=== PATIENT | female | born 1960 | race Caucasian/White ===

== ENCOUNTER 2024-02-05 14:33 | Inpatient (IN) | payer MEDICARE, OTHER ==
[2024-02-05] MEDS: ALBUTEROL NEBULIZED 2.5 MG/3 ML INHALATION STA (14:59)
[2024-02-05] MEDS: SODIUM CHLORIDE 0.9% 1,000 ML IV SCH (15:00)
[2024-02-05] MEDS: NOREPINEPHRINE 32 MG in SODIUM CHLORIDE 0.9% 218 ML IV ONE (15:12)
[2024-02-05 15:13] LABS: Partial Thromboplastin Time 22.6 sec (22.0-30.0); Prothrombin Time 10.9 sec (10.0-12.5)
[2024-02-05 15:14] LABS: ALT 16 U/L (4-34); AST 20 U/L (14-36); African American GFR (CKD) >90 (>60 ml/min/1.73 sqM); Albumin 3.6 g/dL (3.5-5.0); Alkaline Phosphatase 77 U/L (38-126); Anion Gap 5 mmol/L; Blood Urea Nitrogen 13 mg/dL (7-17); Calcium 7.5 mg/dL (8.4-10.2); Carbon Dioxide 31 mmol/L (22-30); Chloride 91 mmol/L (98-107); Glucose 164 mg/dL (74-99); Magnesium 1.9 mg/dL (1.6-2.3); Non-African American GFR(CKD) >90 (>60 ml/min/1.73 sqM); Sodium 127 mmol/L (137-145); Total Bilirubin 0.4 mg/dL (0.2-1.3); Total Protein 5.9 g/dL (6.3-8.2)
[2024-02-05 15:21] LABS: NT-Pro-B-Type Natriuretic Pept 3140 pg/mL
[2024-02-05 15:22] LABS: HCT 45.7 % (34.0-46.0); MCH 30.2 pg (25.0-35.0); MCHC 32.8 g/dL (31.0-37.0); MCV 92.2 fL (80.0-100.0); Mean Platelet Volume 8.5; Platelet Count 196 k/uL (150-450); RBC 4.96 m/uL (3.80-5.40); WBC 33.3 k/uL (3.8-10.6)
--- NOTE | 2024-02-05 15:23 | XR ---
EXAMINATION TYPE: XR chest 1V portable DATE OF EXAM: 02/05/2024 2:57 PM COMPARISON: Chest radiographs from same day CLINICAL INDICATION: Female, 63 years old with history of vented/anjelica; [facility] TECHNIQUE: XR chest 1V portable Frontal view of the chest. FINDINGS: Lungs/Pleura: Bibasilar atelectasis. No evidence for pneumothorax, pleural effusion or focal consolid ation. Pulmonary vascularity: Unremarkable. Heart/mediastinum: Cardiomediastinal silhouette is unremarkable. Musculoskeletal: No acute osseous pathology. Other findings: None Lines/Tubes: Endotracheal tube with distal tip 5.5 cm above the piero. Nasogastric tube with its distal tip and side-port projecting under the diaphragm. Right internal jugular central venous catheter with distal tip at the cavoatrial junction. IMPRESSION: 1. Stable support tubes. 2. Left apical pneumothorax is suggested by AI software. Attention on FU CT chest. No visceral pleur al line identified. 3. Bibasilar airspace opacities correlate for aspiration versus atelectasis. [facility], , 02/05/2024 3:21 PM
--- NOTE | 2024-02-05 15:41 | P.CNPUL ---
History of Present Illness Consult date: 02/05/24 Reason for consult: dyspnea, hypoxemia, pneumonia, abnormal CXR/CT Chief complaint: Respiratory failure. History of present illness: Pulmonary consult dated February 05, 2024. This is a 63-year-old female who was transferred down from [facility]. She apparently was at [place] yesterday, diagnosed as having pneumonia, given Omnicef 300 twice a day, discharged from the emergency department. She apparently came back today, with worsened respiratory distress, and ended up requiring intubation, and mechanical ventilation, and was shipped down to [facility]. I saw her in the emergency department, trauma room 2. She is on the mechanical ventilator. The respiratory therapist switch her from volume assist-control, because of high airway pressures to pressure assist control. Her inspiratory pressure or Pi is 20 cm of water. Her inspiratory time or Ti is 0.7 seconds. The patient is receiving 100% oxygen, with a PEEP of 5, and a rate of 14 breaths/min. She was given Rocephin and vancomycin at the outside hospital. She is currently on propofol at 10 mcg/kg/min, norepinephrine at 0.05 mcg/kg/min. She is not currently receiving any IV fluids. Current labs include a white count 33.3, hemoglobin hematocrit and platelet count all normal. Sodium 127, potassium 4, chlorides 91, CO2 31, glucose 164. Calcium 7.5. N- terminal proBNP 3140. Chest x-ray may show some bibasilar atelectasis or infiltrates. There may be concern for a small left apical pneumothorax. A CT scan was ordered. Review of Systems REVIEW OF SYSTEMS: No history can be obtained as to the review of systems, prior to the patient coming to this hospital. CONSTITUTIONAL: [Negative.] NEUROLOGIC: [ Negative.] HEENT: [ Negative.] CARDIAC: [Negative.] PULMONARY: [Negative.] GI: [Negative.] : [Negative.] RHEUMATOLOGIC: [ Negative.] IMMUNOLOGIC: [ Negative.] ENDOCRINE: [Negative. ] DERMATOLOGIC: [Negative.] Past Medical History Past Medical History: Pneumonia Past Psychological History: Unable to Obtain Smoking Status: Unknown if ever smoked Past Alcohol Use History: Unable to Obtain Past Drug Use History: Unable to Obtain Medications and Allergies Allergies Allergy/AdvReac Type Severity Reaction Status Date / Time Sulfa (Sulfonamide Allergy Unknown Verified 02/05/24 14:46 Antibiotics) Physical Exam Osteopathic Statement: *. No significant issues noted on an osteopathic structural exam other than those noted in the History and Physical/Consult. Vitals: Vital Signs Temp Pulse Resp BP Pulse Ox FiO2 02/05/24 15:17 76 164/90 100 02/05/24 14:57 82 18 93/51 100 02/05/24 14:52 100 02/05/24 14:50 82 02/05/24 14:38 96.8 F L 87 20 114/69 100 02/05/24 14:37 100 Intake and Output 02/05/24 02/05/24 02/05/24 06:59 14:59 22:59 Intake Total 1.752 Balance 1.752 Intake: Intake, IV Titration 1.752 Amount Norepinephrine 32 mg In 1.752 Sodium Chloride 0.9% 218 ml @ 0.03 MCG/KG/MIN 1. 261 mls/hr IV .Q24H ONE Rx#:[id number] Other: Weight 89.7 kg No acute distress, sedated with propofol, with an orally placed endotracheal t ube. HEENT examination is grossly unremarkable. Neck supple. Full range of motion. No adenopathy thyromegaly or neck vein distention. Cardiovascular examination reveals regular rhythm rate. S1-S2 normal. No S3 or S4. No discernible murmur noted. Heart sounds are distant. Lungs reveal very diminished breath sounds. There is expiratory rhonchi and wheezes. Breath sounds are equal but diminished. No crackles. Abdomen is soft, without bowel sounds. No obvious masses. Extremities are intact. No cyanosis clubbing or edema. Skin is without rash or lesion. Neurologic examination cannot be assessed at this time. Results - Laboratory Findings CBC and BMP: 02/05/24 14:47 02/05/24 14:47 PT/INR, D-dimer PT 10.9 sec (10.0-12.5) 02/05/24 14:47 INR 1.0 (<1.2) 02/05/24 14:47 Abnormal lab findings: Abnormal Labs 02/05/24 02/05/24 14:47 14:47 WBC 33.3 H Sodium 127 L Chloride 91 L Carbon Dioxide 31 H Glucose 164 H Calcium 7.5 L Total Protein 5.9 L - Diagnostic Findings Chest x-ray: image reviewed Assessment and Plan Assessment: Acute hypoxemic respiratory failure requiring intubation and mechanical ventilation, February 05, 2024. Possible bibasilar pneumonia. Possible left apical pneumothorax. Hypotension, likely related to either volume depletion, positive pressure ventilation and/or sepsis. Plan: Plan dated February 13, 2024. Not much is known about this patient at this time. She apparently was in the [place] ER yesterday and was diagnosed as having pneumonia, given Omnicef and sent home. Subsequent to that, she came back into the ER today, with worsening respiratory distress, required intubation and mechanical ventilation. The patient was seen in the emergency room, trauma room 2. She is currently on the mechanical ventilator. She was switched from volume assist-control, to pressure assist control. She is currently on propofol for sedation, and a small dose of norepinephrine at 0.05 mcg/kg/min. Labs, have been ordered. I have asked for a CT scan of the chest, to see whether or not there is a left apical pneumothorax. Additional recommendations and suggestions are forthcoming. Time with Patient: Greater than 30
--- NOTE | 2024-02-05 15:48 | ED ---
General Adult HPI - General Chief complaint: Shortness of Breath Stated complaint: CASSY Time Seen by Provider: 02/05/24 14:36 Source: EMS, RN notes reviewed, old records reviewed Mode of arrival: EMS Limitations: altered mental status - History of Present Illness Initial comments: 63-year-old female transferred from outside hospital with vent dependent r espiratory failure secondary to COPD and pneumonia. Patient had required intubation due to respiratory failure. She had elevated CO2 on blood gas. She also had poor IV access and required central line as well as blood pressure support with norepinephrine. Patient has history of COPD and was diagnosed with pneumonia apparently 2 days prior. Patient was given antibiotics including vancomycin and ceftriaxone prior to transfer. She had an elevated white blood cell count at 24. Her sodium was 123. She was started on Versed for sedation during transport. Paramedics report low blood pressure requiring continuous norepinephrine during transport. - Related Data Home Medications Medication Instructions Recorded Confirmed Albuterol Inhaler [Ventolin Hfa 2 puff INHALATION RT-Q4H PRN 02/05/24 02/05/24 Inhaler] Azithromycin [Zithromax] 500 mg PO DAILY 02/05/24 02/05/24 Cefdinir 300 mg PO BID 02/05/24 02/05/24 Doxycycline Monohydrate 100 mg PO DIRECTED 02/05/24 02/05/24 Famotidine [Pepcid] 20 mg PO BID 02/05/24 02/05/24 Fluticasone Nasal [place] [Flonase 2 spray EA NOSTRIL DAILY 02/05/24 02/05/24 Nasal [place]] Fluticasone/Umeclidin/Vilanter 1 puff INHALATION RT-DAILY 02/05/24 02/05/24 [Trelegy Ellipta 200-62.5-25] predniSONE [Deltasone] 20 mg PO BID 02/05/24 02/05/24 Allergies Allergy/AdvReac Type Severity Reaction Status Date / Time Sulfa (Sulfonamide Allergy Unknown Verified 02/05/24 15:47 Antibiotics) Review of Systems ROS Statement: Those systems with pertinent positive or pertinent negative responses have been documented in the HPI. ROS Other: All systems not noted in ROS Statement are negative. Past Medical History Past Medical History: Pneumonia Past Psychological History: Unable to Obtain Smoking Status: Unknown if ever smoked Past Alcohol Use History: Unable to Obtain Past Drug Use History: Unable to Obtain General Exam General appearance: obtunded, in distress Head exam: Present: atraumatic, normocephalic Eye exam: Present: normal appearance Respiratory exam: Present: respiratory distress, wheezes Cardiovascular Exam: Present: regular rate, normal rhythm GI/Abdominal exam: Present: soft. Absent: distended, tenderness Extremities exam: Present: normal inspection, normal capillary refill Neurological exam: Absent: alert Skin exam: Present: warm Course Vital Signs 02/05/24 02/05/24 02/05/24 14:37 14:38 14:50 Temperature 96.8 F L Pulse Rate 87 82 Respiratory 20 Rate Blood Pressure 114/69 O2 Sat by Pulse 100 Oximetry Fraction of 100 Inspired Oxygen (FIO2) 02/05/24 02/05/24 02/05/24 14:52 14:57 15:17 Temperature Pulse Rate 82 76 Respiratory 18 Rate Blood Pressure 93/51 164/90 O2 Sat by Pulse 100 100 Oximetry Fraction of 100 Inspired Oxygen (FIO2) 02/05/24 15:38 Temperature Pulse Rate 96 Respiratory Rate Blood Pressure O2 Sat by Pulse Oximetry Fraction of Inspired Oxygen (FIO2) - Reevaluation(s) Reevaluation #1: 02/05/24 15:[address] Hancock in the emergency department Medical Decision Making - Medical Decision Making Was pt. sent in by a medical professional or institution (DEDE Aaron, CONTENT DEVELOPMENT SPECIALIST, urgent care, hospital, or intermediate...) When possible be specific @Patient transferred from [place] with respiratory failure secondary to COPD and bilateral pneumonia on the ventilator Did you speak to anyone other than the patient for history (EMS, parent, family, police, friend...)? What history was obtained from this source @ -No Did you review nursing and triage notes (agree or disagree)? Why? @ -I reviewed and agree with nursing and triage notes Were old charts reviewed (outside hosp., previous admission, EMS record, old EKG, old radiological studies, urgent care reports/EKG's, intermediate records)? Report findings @ -No old charts were reviewed Differential Dyspnea: Coronary syndrome, arrhythmia, tamponade, asthma, COPD, pulmonary embolism, pneumonia, pneumothorax, pulmonary effusion, anaphylaxis, diabetic ketoacidosis, flailed chest, pulmonary contusion, diaphragmatic rupture, anemia, neurom uscular, this is not meant to be an all-inclusive list. EKG interpreted by me (3pts min.). @Sinus rhythm rate of 83, LA interval 165, QRS duration 92, QTc 458, no ST segment elevation X-rays interpreted by me (1pt min.). @ -Chest x-ray showing concern for apical pneumothorax on the left, CT of the chest has been ordered CT interpreted by me (1pt min.). @ -CT chest shows bullous emphysema, with large blab in the left apices corresponding to questioned pneumothorax on x-ray U/S interpreted by me (1pt. min .). @ -None done What testing was considered but not performed or refused? (CT, X-rays, U/S, labs)? Why? @ -None What meds were considered but not given or refused? Why? @ -None Did you discuss the management of the patient with other professionals (professionals i.e. , PA, CONTENT DEVELOPMENT SPECIALIST, lab, RT, psych nurse, social media marketing analyst, elevator starter, teacher, administrative officer, child support case officer)? Give summary @[facility] will admit, Dr. Hancock covering for ICU Was smoking cessation discussed for >3mins.? @ -No Was critical care preformed (if so, how long)? @Yes, 35 minutes Were there social determinants of health that impacted care today? How? (Homelessness, low income, unemployed, alcoholism, drug addiction, transportation, low edu. Level, literacy, decrease access to med. care, penitentiary, rehab)? @ -No Was there de-escalation of care discussed even if they declined (Discuss DNR or withdrawal of care, Hospice)? DNR status @ -No What co-morbidities impacted this encounter? (DM, HTN, Smoking, COPD, CAD, Cancer, CVA, ARF, Chemo, Hep., AIDS, mental health diagnosis, sleep apnea, morbid obesity)? @ -[COPD, recent diagnosis of pneumonia Was patient admitted / discharged? Hospital course, mention meds given and route, prescriptions, significant lab abnormalities, going to OR and other pertinent info. @ -63-year-old female with respiratory failure requiring a ventilator secondary to COPD and pneumonia. Patient continued on IV antibiotics, IV steroids, albuterol. Patient admitted to the ICU. Repeat laboratory testing including ABG has been ordered, results are pending. Case discussed with the admitting team and the pulmonary electrical engineering teacher. Undiagnosed new problem with uncertain prognosis? @ -No Drug Therapy requiring intensive monitoring for toxicity (Heparin, Nitro, Insulin, Cardizem)? @ -No Were any procedures done? @ -No Diagnosis/symptom? @ -Vent dependent respiratory failure secondary to COPD and pneumonia Acute, or Chronic, or Acute on Chronic? @ -Acute Uncomplicated (without systemic symptoms) or Complicated (systemic symptoms)? @ -Default Side effects of treatment? @ -No Exacerbation, Progression, or Severe Exacerbation? @ -No Poses a threat to life or bodily function? How? (Chest pain, [place], [place], pneumonia, PE, COPD, DKA, ARF, appy, cholecystitis, CVA, Diverticulitis, Homicidal, Suicidal, threat to staff... and all critical care pts) @ -[Yes, respiratory failure, sepsis - Lab Data Result diagrams: 02/05/24 14:47 02/05/24 14:47 Lab Results 02/05/24 02/05/24 02/05/24 Range/Units 14:47 14:47 14:47 WBC 33.3 H (3.8-10.6) k/uL RBC 4.96 (3.80-5.40) m/uL Hgb 15.0 (11.4-16.0) gm/dL Hct 45.7 (34.0-46.0) % MCV 92.2 (80.0-100.0) fL MCH 30.2 (25.0-35.0) pg MCHC 32.8 (31.0-37.0) g/dL RDW 13.0 (11.5-15.5) % Plt Count 196 (150-450) k/uL MPV 8.5 PT 10.9 (10.0-12.5) sec INR 1.0 (<1.2) APTT 22.6 (22.0-30.0) sec Sodium 127 L (137-145) mmol/L Potassium 4.0 (3.5-5.1) mmol/L Chloride 91 L (98-107) mmol/L Carbon Dioxide 31 H (22-30) mmol/L Anion Gap 5 mmol/L BUN 13 (7-17) mg/dL Creatinine 0.54 (0.52-1.04) mg/dL Est GFR (CKD-EPI)AfAm >90 (>60 ml/min/1.73 sqM) Est GFR (CKD-EPI)NonAf >90 (>60 ml/min/1.73 sqM) Glucose 164 H (74-99) mg/dL Plasma Lactic Acid Garcia (0.7-2.0) mmol/L Calcium 7.5 L (8.4-10.2) mg/dL Magnesium 1.9 (1.6-2.3) mg/dL Total Bilirubin 0.4 (0.2-1.3) mg/dL AST 20 (14-36) U/L ALT 16 (4-34) U/L Alkaline Phosphatase 77 (38-126) U/L NT-Pro-B Natriuret Pep 3140 pg/mL Total Protein 5.9 L (6.3-8.2) g/dL Albumin 3.6 (3.5-5.0) g/dL 02/05/24 Range/Units 14:47 WBC (3.8-10.6) k/uL RBC (3.80-5.40) m/uL Hgb (11.4-16.0) gm/dL Hct (34.0-46.0) % MCV (80.0-100.0) fL MCH (25.0-35.0) pg MCHC (31.0-37.0) g/dL RDW (11.5-15.5) % Plt Count (150-450) k/uL MPV PT (10.0-12.5) sec INR (<1.2) APTT (22.0-30.0) sec Sodium (137-145) mmol/L Potassium (3.5-5.1) mmol/L Chloride (98-107) mmol/L Carbon Dioxide (22-30) mmol/L Anion Gap mmol/L BUN (7-17) mg/dL Creatinine (0.52-1.04) mg/dL Est GFR (CKD-EPI)AfAm (>60 ml/min/1.73 sqM) Est GFR (CKD-EPI)NonAf (>60 ml/min/1.73 sqM) Glucose (74-99) mg/dL Plasma Lactic Acid Garcia 1.5 (0.7-2.0) mmol/L Calcium (8.4-10.2) mg/dL Magnesium (1.6-2.3) mg/dL Total Bilirubin (0.2-1.3) mg/dL AST (14-36) U/L ALT (4-34) U/L Alkaline Phosphatase (38-126) U/L NT-Pro-B Natriuret Pep pg/mL Total Protein (6.3-8.2) g/dL Albumin (3.5-5.0) g/dL Critical Care Time Critical Care Time: Yes Total Critical Care Time: 35 Disposition Clinical Impression: Acute exacerbation of chronic obstructive pulmonary disease, Community acquired pneumonia, Respiratory failure Disposition: ADMITTED IP TO THIS HOSP Condition: Serious Is patient prescribed a controlled substance at d/c from ED?: No Referrals: None,Stated [Primary Care Provider] - 1-2 days Time of Disposition: 16:01
[2024-02-05] MEDS ORDERED: IPRATROPIUM-ALBUTEROL 3 ML NEB INHALATION PRN (15:53)
[2024-02-05] MEDS ORDERED: NALOXONE 0.4 MG/ML 1 ML VIAL IVP PRN (15:53)
--- NOTE | 2024-02-05 16:07 | CT ---
EXAMINATION TYPE: CT chest wo con DATE OF EXAM: 02/05/2024 4:00 PM COMPARISON: Chest radiograph from same day. CLINICAL INDICATION: Female, 63 years old with history of CASSY, Pneumo?; PHH, CASSY, Pnemo? TECHNIQUE: Multiple axial images were obtained through the chest. Sagittal and coronal reformats were created for review. MIP was performed on a separate workstation. Contrast used: mL of (None if empty) Oral contrast used: (None if empty) CT DLP: 456.9 mGycm, Automated exposure control for dose reduction was used. FINDINGS: LUNGS/ PLEURA: No evidence for pneumothorax thought to be seen on plain film same day severe emphysem a changes with bulla and blebs in the apices. Elevated left diaphragm with associated atelectasis. AIRWAY: Endotracheal tube terminates 4.3 cm is above the piero. HEART: Size within normal limits. MEDIASTINUM: No gross evidence of adenopathy. VASCULATURE: Right central venous catheter with tip terminating in the superior vena cava. MUSCULOSKELETAL: No acute osseous abnormalities SOFT TISSUES/LYMPH NODES: Unremarkable. LOWER NECK: No significant findings. UPPER ABDOMEN: Right adrenal nodule measuring 31 mm most consistent with lipid rich adrenal adenoma. Nasogastric tube terminating in the gastric lumen out of the [id number]. IMPRESSION: 1. No evidence for pneumothorax. 2. Severe emphysema changes in lung apices with bullous and blebs. 3. Nasogastric tube terminating out of the [id number] likely in the gastric lumen. 4. Low lung volumes with elevated left diaphragm with basilar atelectasis. 5. Right adrenal nodule most compatible with lipid rich adrenal adenoma. 6. Mild pectus excavatum morphology to the chest. 7. Endotracheal tube and central venous catheter terminating in appropriate position. [facility], Workstation: [id number], 02/05/2024 4:05 PM
[2024-02-05 16:29] LABS: Monocytes # (M) 0.33 k/uL (0-1.0); Neutrophils # (M) 31.97 k/uL (1.3-7.7); Neutrophils % (M) 96 %; Nucleated Red Blood Cells 0 /100 WBC (0-0); Total Cells Counted 100
[2024-02-05] MEDS ORDERED: PNEUMONIA PROTOCOL UTILIZED 1 EACH MISC PO PRN (16:32)
--- NOTE | 2024-02-05 16:35 | P.HPIM ---
History of Present Illness H&P Date: 02/05/24 63 year old F with PMH of COPD smoking 2PPD presents to the ED for altered mentation and acute hypoxic respiratory failure. Her is at bedside providing history. Patient has a chronic dry cough. However, over the past 2 weeks her cough has been more productive described as glue. She was admitted at [place] 2 days ago for COPD exacerbation and bilateral pneumonia. Patient requested to go home, and she was discharged on 4L NC, steroids and antibiotics. Since then, she has progressively worsened. She initially presented to [facility]. She was intubated and transferred to [facility] for higher level of care. Initial BP 114/69, T 96.8F, HR 87, RR 20, 100%, mechanically intubated. CBC, Coag panel, CMP significant for WBC 33.3, Na 127, Cl 91, bicarb 31, glu 164, Ca 7.5. Lactic acid 1.5. Mag 1.9. BNP 3140. CXR concerning for L PTX, bibasilar airspace opacities. Chest CT no PTX, severe emphysema, bibasilar atelectasis, right adrenal nodule, elevated L diaphragm, mild pectus excavatum. Started on Rocephin, Azithromycin, SoluMedrol, Levophed and admitted to ICU for further workup and management. General: Intubated Derm: warm, dry Head: atraumatic, normocephalic, symmetric, contusion forehead Eyes: no lid lag, anicteric sclera Mouth: no lip lesion, mucus membranes moist Cardiovascular: S1S2 reg, no murmur Lungs: Decreased BS bilateral, no rhonchi, no rales , mechanically ventilated Abdominal: soft, non tender to palpation Ext: no gross muscle atrophy, no edema, no contractures Neuro: Unable to determine Psych: Unable to determine Based on my assessment of this patient, this patient meets a high complexity level of care. Acute metabolic encephalopathy likely due to below Acute hypoxic respiratory failure likely due to below Acute COPD exacerbation: SoluMedrol 60 mg IV Q6H. DuoNeb QID scheduled and Q2H PRN for SOB/wheezing. Telemetry monitoring. Pulmonary on board. Septic shock secondary to bilateral pnuemonia: Wean Levophed to maintain MAP > 65. Rocephin 2g IV QD and Azithromycin 500 mg IV QD. Check COVID, Legionella Ag, Sputum Cx, BCx. NS at 100 cc/hr. Hyponatremia: Hopeful improvement with IV hydration. CODE STATUS: FULL CODE DVT Prophylaxis: Lovenox SQ GI Prophylaxis: Protonix IV Designated medical POA if patient is not able to make medical decisions for themselves: . I have reviewed the following organizational effectiveness consultant notes: ER note. I have reviewed the results of the following tests: As above. I have ordered the following tests: As above. I have discussed the care of this patient with the following independent historian: . I have independently interpreted the following test below: I have discussed the management of this patient with the following physician: ER provider. Past Medical History Past Medical History: Pneumonia Past Psychological History: Unable to Obtain Smoking Status: Unknown if ever smoked Past Alcohol Use History: Unable to Obtain Past Drug Use History: Unable to Obtain Medications and Allergies Home Medications Medication Instructions Recorded Confirmed Type Albuterol Inhaler [Ventolin Hfa 2 puff INHALATION RT-Q4H PRN 02/05/24 02/05/24 History Inhaler] Azithromycin [Zithromax] 500 mg PO DAILY 02/05/24 02/05/24 History Cefdinir 300 mg PO BID 02/05/24 02/05/24 History Doxycycline Monohydrate 100 mg PO DIRECTED 02/05/24 02/05/24 History Famotidine [Pepcid] 20 mg PO BID 02/05/24 02/05/24 History Fluticasone Nasal [place] [Flonase 2 spray EA NOSTRIL DAILY 02/05/24 02/05/24 History Nasal [place]] Fluticasone/Umeclidin/Vilanter 1 puff INHALATION RT-DAILY 02/05/24 02/05/24 History [Trelegy Ellipta 200-62.5-25] predniSONE [Deltasone] 20 mg PO BID 02/05/24 02/05/24 History Allergies Allergy/AdvReac Type Severity Reaction Status Date / Time Sulfa (Sulfonamide Allergy Unknown Verified 02/05/24 15:47 Antibiotics) Physical Exam Vitals: Vital Signs Temp Pulse Resp BP Pulse Ox FiO2 02/05/24 15:38 96 02/05/24 15:17 76 164/90 100 02/05/24 14:57 82 18 93/51 100 11/20/24 14:52 100 02/05/24 14:50 82 02/05/24 14:38 96.8 F L 87 20 114/69 100 02/05/24 14:37 100 Intake and Output 02/05/24 02/05/24 02/05/24 06:59 14:59 22:59 Intake Total 1.752 Balance 1.752 Intake: Intake, IV Titration 1.752 Amount Norepinephrine 32 mg In 1.752 Sodium Chloride 0.9% 218 ml @ 0.03 MCG/KG/MIN 1. 261 mls/hr IV .Q24H ONE Rx#:[id number] Other: Weight 89.7 kg Results CBC & Chem 7: 02/05/24 14:47 02/05/24 14:47 Labs: Abnormal Lab Results - Last 24 Hours (Table) 02/05/24 02/05/24 Range/Units 14:47 14:47 WBC 33.3 H (3.8-10.6) k/uL Sodium 127 L (137-145) mmol/L Chloride 91 L (98-107) mmol/L Carbon Dioxide 31 H (22-30) mmol/L Glucose 164 H (74-99) mg/dL Calcium 7.5 L (8.4-10.2) mg/dL Total Protein 5.9 L (6.3-8.2) g/dL
[2024-02-05 16:51] LABS: Allen Test Performed? Yes
[2024-02-05 17:07] LABS: ABG PH 7.11 (7.35-7.45)
[2024-02-05 17:08] LABS: ABG PCO2 >98 mmHg (35-45); ABG PO2 192 mmHg (83-108)
[2024-02-05 17:09] LABS: ABG HCO3 49 mmol/L (21-25); ABG Oxygen Saturation 99.2 % (94-97)
[2024-02-05 19:05] LABS: ABG Base Excess 6.8 mmol/L; ABG HCO3 37 mmol/L (21-25); ABG Oxygen Saturation 91.6 % (94-97); ABG PH 7.28 (7.35-7.45); ABG PO2 61 mmHg (83-108); ABG TCO2 40 mmol/L (19-24); Allen Test Performed? Yes
[2024-02-05 19:07] LABS: ABG PCO2 79 mmHg (35-45)
[2024-02-05] MEDS: methylPREDNISolone SOD SUCCI 125 MG/2 ML VIAL IV SCH (19:15)
[2024-02-05] MEDS: IPRATROPIUM-ALBUTEROL 3 ML NEB INHALATION SCH (19:52)
[2024-02-05] MEDS: CISATRACURIUM 200 MG in SODIUM CHLORIDE 0.9% 180 ML IV SCH (20:07)
[2024-02-05] MEDS: CISATRACURIUM 2 MG/ML 5 ML VIAL IV ONE (20:07)
[2024-02-05 20:57] LABS: ABG Base Excess 8.5 mmol/L; ABG HCO3 38 mmol/L (21-25); ABG Oxygen Saturation 94.5 % (94-97); ABG PH 7.33 (7.35-7.45); ABG PO2 69 mmHg (83-108); ABG TCO2 40 mmol/L (19-24); Allen Test Performed? Yes
[2024-02-05 20:59] LABS: ABG PCO2 72 mmHg (35-45)
[2024-02-05] MEDS: ACETAMINOPHEN TAB 325 MG TAB PO PRN (23:03)
[2024-02-05 23:41] LABS: Glucose,Whole Blood 169 mg/dL (70-110)
[2024-02-06 06:24] LABS: Glucose,Whole Blood 177 mg/dL (70-110)
[2024-02-06 06:29] LABS: Basophils % (A) 0 %; Eosinophils # (A) 0.1 k/uL (0-0.7); Eosinophils % (A) 0 %; HCT 44.2 % (34.0-46.0); HGB 14.5 gm/dL (11.4-16.0); Lymphocytes # (A) 1.6 k/uL (1.0-4.8); Lymphocytes % (A) 6 %; MCHC 32.8 g/dL (31.0-37.0); MCV 94.5 fL (80.0-100.0); Mean Platelet Volume 7.2; Monocytes # (A) 0.5 k/uL (0-1.0); Monocytes % (A) 2 %; Neutrophils # (A) 22.9 k/uL (1.3-7.7); Neutrophils % (A) 91 %; Platelet Count 237 k/uL (150-450); RBC 4.68 m/uL (3.80-5.40); RDW 12.8 % (11.5-15.5); WBC 25.2 k/uL (3.8-10.6)
[2024-02-06 06:39] LABS: ABG Base Excess 11.1 mmol/L; ABG HCO3 39 mmol/L (21-25); ABG Oxygen Saturation 96.3 % (94-97); ABG PCO2 65 mmHg (35-45); ABG PH 7.39 (7.35-7.45); ABG PO2 76 mmHg (83-108); ABG TCO2 41 mmol/L (19-24); Allen Test Performed? Yes
[2024-02-06 06:40] LABS: African American GFR (CKD) >90 (>60 ml/min/1.73 sqM); Anion Gap 3 mmol/L; Blood Urea Nitrogen 13 mg/dL (7-17); Calcium 8.3 mg/dL (8.4-10.2); Carbon Dioxide 35 mmol/L (22-30); Chloride 93 mmol/L (98-107); Glucose 183 mg/dL (74-99); Magnesium 2.3 mg/dL (1.6-2.3); Non-African American GFR(CKD) >90 (>60 ml/min/1.73 sqM); Sodium 131 mmol/L (137-145)
[2024-02-06] MEDS ORDERED: DEXTROSE 50% SYRINGE 50 ML IVP PRN ×2 (07:57)
--- NOTE | 2024-02-06 08:25 | XR ---
EXAMINATION TYPE: XR chest 1V portable DATE OF EXAM: 02/06/2024 5:42 AM COMPARISON: Chest radiograph from one day prior. CLINICAL INDICATION: Female, 63 years old with history of shortness of breath; TECHNIQUE: XR chest 1V portable Frontal view of the chest. FINDINGS: Lungs/Pleura: There remains bibasilar airspace opacities. There is no evidence of pleural effusion, f ocal consolidation, or pneumothorax. Pulmonary vascularity: Unremarkable. Heart/mediastinum: Cardiomediastinal silhouette is unremarkable. Musculoskeletal: No acute osseous pathology. Other findings: None Lines/Tubes: Endotracheal tube with distal tip 6.7cm above the piero. Nasogastric tube with its distal tip and side-port projecting under the diaphragm. Right internal jugular central venous catheter with distal tip at the cavoatrial junction. IMPRESSION: Stable exam with support tubes in appropriate position. Bibasilar airspace opacities. [facility], , 02/06/2024 8:22 AM
[2024-02-06] MEDS: ENOXAPARIN 40 MG/0.4 ML SYRINGE SQ SCH (09:30)
[2024-02-06] MEDS: PANTOPRAZOLE 40 MG/10 ML VIAL IVP SCH (09:41)
[2024-02-06] MEDS: AZITHROMYCIN 500 MG in SODIUM CHLORIDE 0.9% 250 ML IVPB SCH (10:02)
--- NOTE | 2024-02-06 10:08 | CA ---
Transthoracic Echo Report Name: Pia Kennedy Age: 63 Gender: F : 1960 Exam Date: 02/06/2024 08:10 Exam Location: [facility] Ht (in): 66 Wt (lb): 183 Ordering Physician: Negra Galdamez MD Attending/Referring Phys: Child Care Leader Irene Santoro RDCS Procedure CPT: Indications: Respiratory Failure Cardiac Hx: Technical Quality: Poor Contrast 1: Definity Total Dose (mL): 2 Contrast 2: Total Dose (mL): MEASUREMENTS (Male / Female) Normal Values 2D ECHO LV Diastolic Diameter PLAX 4.2 cm 4.2 - 5.9 / 3.9 - 5.3 cm LV Systolic Diameter PLAX 2.5 cm IVS Diastolic Thickness 0.9 cm 0.6 - 1.0 / 0.6 - 0.9 cm LVPW Diastolic Thickness 1.3 cm 0.6 - 1.0 / 0.6 - 0.9 cm LV Relative Wall Thickness 0.5 RV Internal Dim ED PLAX 1.2 cm LA Systolic Diameter LX 2.2 cm 3.0 - 4.0 / 2.7 - 3.8 cm M-MODE Aortic Root Diameter MM 2.7 cm LA Systolic Diameter MM 2.5 cm LA Ao Ratio MM 0.9 AV Cusp Separation MM 1.8 cm DOPPLER AV Peak Velocity 118.0 cm/s AV Peak Gradient 5.6 mmHg MV Area PHT 3.2 cm??? Mitral E Point Velocity 63.1 cm/s Mitral A Point Velocity 76.6 cm/s Mitral E to A Ratio 0.8 MV Deceleration Time 234.8 ms FINDINGS Left Ventricle Left ventricular ejection fraction is estimated at 55-60%. Mildly increased posterior wall thickness. No obvious regional wall motion abnormalities. Left ventricular cavity size normal. Right Ventricle Normal right ventricular size and function. Unable to estimate the right ventricular systolic pressure. Right Atrium Normal right atrial size. Left Atrium Normal left atrial size. Mitral Valve Structurally normal mitral valve. Trace mitral regurgitation. No mitral stenosis. Aortic Valve Trileaflet aortic valve. No aortic valve stenosis or regurgitation. Tricuspid Valve Structurally normal tricuspid valve. Trace tricuspid regurgitation. No tricuspid stenosis. Pulmonic Valve Structurally normal pulmonic valve. Trace pulmonic regurgitation. No pulmonic stenosis. Pericardium Minimal pericardial effusion (normal variant). Left pleural effusion. Aorta Normal size aortic root and proximal ascending aorta. CONCLUSIONS Technically difficult study with poor acoustic windows LVEF 55 to 60% No obvious regional wall motion abnormality appreciated No significant valvular dysfunction appreciated Normal RV size and systolic function. Dilated IVC with less than 50% respiratory collapse Previewed by: Dr Acosta Jara (Electronically Signed) Final Date: 06 February 2024 10:07
--- NOTE | 2024-02-06 12:57 | P.PN ---
Subjective Progress Note Date: 02/06/24 Principal diagnosis: Respiratory failure. Pulmonary consult dated February 05, 2024. This is a 63-year-old female who was transferred down from [facility]. She apparently was at [facility] yesterday, diagnosed as having pneumonia, given Omnicef 300 twice a day, discharged from the emergency department. She apparently came back today, with worsened respiratory distress, and ended up requiring intubation, and mechanical ventilation, and was shipped down to [facility]. I saw her in the emergency department, trauma room 2. She is on the mechanical ventilator. The respiratory therapist switch her from volume assist-control, because of high airway pressures to pressure assist control. Her inspiratory pressure or Pi is 20 cm of water. Her inspiratory time or Ti is 0.7 seconds. The patient is receiving 100% oxygen, with a PEEP of 5, and a rate of 14 breaths/min. She was given Rocephin and vancomycin at the outside hospital. She is currently on propofol at 10 mcg/kg/min, norepinephrine at 0.05 mcg/kg/min. She is not currently receiving any IV fluids. Current labs include a white count 33.3, hemoglobin hematocrit and platelet count all normal. Sodium 127, potassium 4, chlorides 91, CO2 31, glucose 164. Calcium 7.5. N- terminal proBNP 3140. Chest x-ray may show some bibasilar atelectasis or infiltrates. There may be concern for a small left apical pneumothorax. A CT scan was ordered. Progress note dated February 06, 2024. This is a 63-year-old female seen today in room 254. The patient remains on volume assist-control, rate 30, tidal volume 350, FiO2 70%, PEEP of 8. Blood gases show pO2 76, pCO2 65, pH is 7.39. The patient is on saline at 100 cc an hour, norepinephrine at 2 mcg/min, propofol at 35 mcg/kg/min and Nimbex at 1 mcg/kg/min, with [id number] monitoring. The patient has a history of COPD, ongoing tobacco use, lymphoma, and pneumonia. Today, an arterial line will be placed. Will start tube feedings. In addition, the patient will be started on budesonide, and formoterol, usual doses. White count 25.2, hemoglobin 14.5, hematocrit 44.2, platelet count normal. Sodium 131, potassium 4, chloride 93, CO2 35, BUN 13, creatinine 0.52. Troponins were 0.018, and 0.013. Glucose is 177. Chest x-ray shows bibasilar opacities, potentially consistent with pneumonia. Patient continues on Rocephin and azithromycin for possible community-acquired pneumonia. Objective - Vital Signs Vital signs: Vital Signs Temp 98.8 F 02/06/24 08:00 Pulse 73 02/06/24 12:18 Resp 30 H 02/06/24 10:45 BP 99/58 02/06/24 10:45 Pulse Ox 99 02/06/24 10:45 FiO2 70 02/06/24 12:02 Intake & Output 02/05/24 02/06/24 02/06/24 18:59 06:59 18:59 Intake Total 39.138 3872.555 6016.453 Output Total 2470 220 Balance 39.138 -1019.796 892.453 Weight 89.7 kg 83.2 kg Intake: Intake, IV Titration 39.138 0013.554 9842.453 Amount Azithromycin 500 mg In 250 Sodium Chloride 0.9% 250 ml @ 250 mls/hr IVPB DAILY [facility] Rx#:[id number] Cisatracurium 200 mg In 14.801 106.384 Sodium Chloride 0.9% 180 ml @ 1 MCG/KG/MIN 5.382 mls/hr IV .Q24H [facility] Rx#: [id number] Norepinephrine 32 mg In 39.138 87.534 6.069 Sodium Chloride 0.9% 218 ml @ 0.03 MCG/KG/MIN 1. 261 mls/hr IV .Q24H [facility] Rx#:[id number] Sodium Chloride 0.9% 1, 1200 600 000 ml @ 100 mls/hr IV . Q10H [facility] Rx#:[id number] cefTRIAXone 2 gm In 50 Sodium Chloride 0.9% 50 ml @ 100 mls/hr IVPB Q24HR [facility] Rx#:[id number] propofoL 1,000 mg In 147.869 100 Empty Bag 1 bag @ 15 MCG/ KG/MIN 8.073 mls/hr IV . [id number] [facility] Rx#:[id number] Output: Gastric Drainage 500 Urine 1970 220 Other: Voiding Method Indwelling Catheter - Exam No acute distress, sedated with propofol, with an orally placed endotracheal tube. The patient is sedated and paralyzed. HEENT examination is grossly unremarkable. Neck supple. Full range of motion. No adenopathy thyromegaly or neck vein distention. Cardiovascular examination reveals regular rhythm rate. S1-S2 normal. No S3 or S4. No discernible murmur noted. Heart sounds are distant. Lungs reveal very diminished breath sounds. There is expiratory rhonchi and wheezes. Breath sounds are equal but diminished. No crackles. Abdomen is soft, without bowel sounds. No obvious masses. Extremities are intact. No cyanosis clubbing or edema. Skin is without rash or lesion. Neurologic examination cannot be assessed at this time. - Labs CBC & Chem 7: 02/06/24 05:55 02/06/24 05:55 Labs: Abnormal Lab Results - Last 24 Hours (Table) 02/05/24 02/05/24 02/05/24 Range/Units 14:47 14:47 16:22 WBC 33.3 H (3.8-10.6) k/uL Neutrophils # (1.3-7.7) k/uL Neutrophils # (Manual) 31.97 H (1.3-7.7) k/uL ABG pH 7.11 L* (7.35-7.45) ABG pCO2 >98 H* (35-45) mmHg ABG pO2 192 H (83-108) mmHg ABG HCO3 49 H* (21-25) mmol/L ABG Total CO2 (19-24) mmol/L ABG O2 Saturation 99.2 H (94-97) % Hemoglobin (11.4-16.0) gm/dL Sodium 127 L (137-145) mmol/L Chloride 91 L (98-107) mmol/L Carbon Dioxide 31 H (22-30) mmol/L Glucose 164 H (74-99) mg/dL POC Glucose (mg/dL) (70-110) mg/dL Calcium 7.5 L (8.4-10.2) mg/dL Total Protein 5.9 L (6.3-8.2) g/dL 02/05/24 02/05/24 02/05/24 Range/Units 19:02 20:56 23:40 WBC (3.8-10.6) k/uL Neutrophils # (1.3-7.7) k/uL Neutrophils # (Manual) (1.3-7.7) k/uL ABG pH 7.28 L 7.33 L (7.35-7.45) ABG pCO2 79 H* 72 H* (35-45) mmHg ABG pO2 61 L 69 L (83-108) mmHg ABG HCO3 37 H 38 H (21-25) mmol/L ABG Total CO2 40 H 40 H (19-24) mmol/L ABG O2 Saturation 91.6 L (94-97) % Hemoglobin 16.1 H (11.4-16.0) gm/dL Sodium (137-145) mmol/L Chloride (98-107) mmol/L Carbon Dioxide (22-30) mmol/L Glucose (74-99) mg/dL POC Glucose (mg/dL) 169 H (70-110) mg/dL Calcium (8.4-10.2) mg/dL Total Protein (6.3-8.2) g/dL 02/06/24 02/06/24 02/06/24 Range/Units 05:55 05:55 06:14 WBC 25.2 H (3.8-10.6) k/uL Neutrophils # 22.9 H (1.3-7.7) k/uL Neutrophils # (Manual) (1.3-7.7) k/uL ABG pH (7.35-7.45) ABG pCO2 65 H (35-45) mmHg ABG pO2 76 L (83-108) mmHg ABG HCO3 39 H (21-25) mmol/L ABG Total CO2 41 H (19-24) mmol/L ABG O2 Saturation (94-97) % Hemoglobin (11.4-16.0) gm/dL Sodium 131 L (137-145) mmol/L Chloride 93 L (98-107) mmol/L Carbon Dioxide 35 H (22-30) mmol/L Glucose 183 H (74-99) mg/dL POC Glucose (mg/dL) (70-110) mg/dL Calcium 8.3 L (8.4-10.2) mg/dL Total Protein (6.3-8.2) g/dL 02/06/24 Range/Units 06:22 WBC (3.8-10.6) k/uL Neutrophils # (1.3-7.7) k/uL Neutrophils # (Manual) (1.3-7.7) k/uL ABG pH (7.35-7.45) ABG pCO2 (35-45) mmHg ABG pO2 (83-108) mmHg ABG HCO3 (21-25) mmol/L ABG Total CO2 (19-24) mmol/L ABG O2 Saturation (94-97) % Hemoglobin (11.4-16.0) gm/dL Sodium (137-145) mmol/L Chloride (98-107) mmol/L Carbon Dioxide (22-30) mmol/L Glucose (74-99) mg/dL POC Glucose (mg/dL) 177 H (70-110) mg/dL Calcium (8.4-10.2) mg/dL Total Protein (6.3-8.2) g/dL Assessment and Plan Assessment: Acute hypoxemic respiratory failure requiring intubation and mechanical ventilation, February 05, 2024. Possible bibasilar pneumonia. Possible left apical pneumothorax, not seen on CT scan. Hypotension, likely related to either volume depletion, positive pressure ventilation and/or sepsis. History of COPD from previous heavy tobacco use. History of lymphoma. History of pneumonia. Plan: Plan dated February 05, 2024. Not much is known about this patient at this time. She apparently was in the [facility] ER yesterday and was diagnosed as having pneumonia, given Omnicef and sent home. Subsequent to that, she came back into the ER today, with worsening respiratory distress, required intubation and mechanical ventilation. The patient was seen in the emergency room, trauma room 2. She is currently on the mechanical ventilator. She was switched from volume assist-control, to pressure assist control. She is currently on propofol for sedation, and a small dose of norepinephrine at 0.05 mcg/kg/min. Labs, have been ordered. I have asked for a CT scan of the chest, to see whether or not there is a left apical pneumothorax. Additional recommendations and suggestions are forthcoming. Plan dated February 06, 2024. The patient is seen in room 254. The patient is currently on the ventilator, with pO2 of 76, pCO2 of 65, pH is 7.39. The patient is getting saline at 100 cc an hour, norepinephrine at 2 mcg/min, propofol at 35 mcg/kg/min, and Nimbex at 1 mcg/kg/min with [id number] monitoring. The patient has a history of COPD from tobacco use, lymphoma, and pneumonia. We add budesonide formoterol, twice a day, and restart tube feeds. In addition, an arterial line is placed. I did have a chance to speak to the family. I spoke to her brother and her . I gave them an update. There is no apical pneumothorax seen on CT scan. We will continue to follow make recommendations where appropriate. Overall prognosis remains guarded. The patient has significant airways resistance. The peak airway pressure was 35 cm of water. The Plateau pressure was 19 cm of water. Airways resistance was 16 cm of water per liter per second. Static lung compliance was also low at 31.8 mL/cm water and dynamic lung compliance was low at 13 mL/cm water. Time with Patient: Greater than 30
[2024-02-06 13:59] LABS: Glucose,Whole Blood 130 mg/dL (70-110)
[2024-02-06] MEDS: INSULIN ASPART (NovoLOG) 100 UNIT/ML VIAL SQ SCH ×2 (13:59→23:29)
--- NOTE | 2024-02-06 14:10 | P.PN ---
Subjective Progress Note Date: 02/06/24 63 year old F with PMH of COPD smoking 2PPD presents to the ED for altered mentation and acute hypoxic respiratory failure. Her is at bedside providing history. Patient has a chronic dry cough. However, over the past 2 weeks her cough has been more productive described as glue. She was admitted at [place] 2 days ago for COPD exacerbation and bilateral pneumonia. Patient requested to go home, and she was discharged on 4L NC, steroids and antibiotics. Since then, she has progressively worsened. She initially presented to [facility]. She was intubated and transferred to [facility] for higher level of care. Initial BP 114/69, T 96.8F, HR 87, RR 20, 100%, mechanically intubated. CBC, Coag panel, CMP significant for WBC 33.3, Na 127, Cl 91, bicarb 31, glu 164, Ca 7.5. Lactic acid 1.5. Mag 1.9. BNP 3140. CXR concerning for L PTX, bibasilar airspace opacities. Chest CT no PTX, severe emphysema, bibasilar atelectasis, right adrenal nodule, elevated L diaphragm, mild pectus excavatum. Started on Rocephin, Azithromycin, SoluMedrol, Levophed and admitted to ICU for further workup and management. Started on Rocephin Azithromycin, SoluMedrol, DuoNeb. 02/05 Patient was seen and examined. Currently on Nimbex at 2 mcg/kg/min and Propofol at 35 mcg/kg/min. Pressors include Levophed at 0.04 mcg/kg/min. Antibiotics include Rocephin and Azithromycin. CBC and BMP significant for WBC 25.2, Na 131, Cl 93, bicarb 35, glu 183, Ca 8.3. Mag 2.3. EKG shows sinus rhythm with no ST T wave changes. COVID, RSV, Flu neg. CXR with bibasilar opacities. General: Intubated Derm: warm, dry Head: atraumatic, normocephalic, symmetric Eyes: no lid lag, anicteric sclera Mouth: no lip lesion, mucus membranes moist Cardiovascular: S1S2 reg, no murmur Lungs: Decreased BS bilateral, no rhonchi, no rales , mechanically ventilated Abdominal: soft, non tender to palpation Ext: no gross muscle atrophy, no edema, no contractures Neuro: Unable to determine Psych: Unable to determine Based on my assessment of this patient, this patient meets a high complexity level of care. Acute metabolic encephalopathy likely due to below Acute hypoxic respiratory failure likely due to below: Obtain Echocardiogram. Trend Trop/EKG to rule out ACS. Acute COPD exacerbation: SoluMedrol 60 mg IV Q6H. DuoNeb QID scheduled and Q2H PRN for SOB/wheezing. Telemetry monitoring. Pulmonary on board. Septic shock secondary to bilateral pnuemonia: Wean Levophed to maintain MAP > 65. Rocephin 2g IV QD and Azithromycin 500 mg IV QD (D2). Check Legionella Ag, Sputum Cx, BCx. NS at 100 cc/hr. Hyponatremia: Improvement with IV hydration. CODE STATUS: FULL CODE DVT Prophylaxis: Lovenox SQ GI Prophylaxis: Protonix IV Designated medical POA if patient is not able to make medical decisions for themselves: . I have reviewed the following net developer consultant notes: Pulmonary note. I have reviewed the results of the following tests: As above. I have ordered the following tests: As above. I have discussed the care of this patient with the following independent historian: CRISTY Gomes. I have independently interpreted the following test below: CXR I have discussed the management of this patient with the following physician: Objective - Vital Signs Vital signs: Vital Signs Temp 99.3 F 02/06/24 04:00 Pulse 87 02/06/24 07:00 Resp 30 H 02/06/24 07:00 BP 112/61 02/06/24 07:00 Pulse Ox 96 02/06/24 07:00 FiO2 70 02/06/24 07:00 Intake & Output 02/05/24 02/06/24 02/06/24 18:59 06:59 18:59 Intake Total 39.138 1450.204 101.121 Output Total 2470 50 Balance 39.138 -1019.796 51.121 Weight 89.7 kg 83.2 kg Intake: Intake, IV Titration 39.138 1450.204 101.121 Amount Cisatracurium 200 mg In 14.801 Sodium Chloride 0.9% 180 ml @ 1 MCG/KG/MIN 5.382 mls/hr IV .Q24H [facility] Rx#: [id number] Norepinephrine 32 mg In 39.138 87.534 1.121 Sodium Chloride 0.9% 218 ml @ 0.03 MCG/KG/MIN 1. 261 mls/hr IV .Q24H [facility] Rx#:[id number] Sodium Chloride 0.9% 1, 1200 100 000 ml @ 100 mls/hr IV . Q10H [facility] Rx#:[id number] propofoL 1,000 mg In 147.869 Empty Bag 1 bag @ 15 MCG/ KG/MIN 8.073 mls/hr IV . [id number] [facility] Rx#:[id number] Output: Gastric Drainage 500 Urine 1970 50 Other: Voiding Method Indwelling Catheter - Labs CBC & Chem 7: 02/06/24 05:55 02/06/24 05:55 Labs: Abnormal Lab Results - Last 24 Hours (Table) 02/05/24 02/05/24 02/05/24 Range/Units 14:47 14:47 16:22 WBC 33.3 H (3.8-10.6) k/uL Neutrophils # (1.3-7.7) k/uL Neutrophils # (Manual) 31.97 H (1.3-7.7) k/uL ABG pH 7.11 L* (7.35-7.45) ABG pCO2 >98 H* (35-45) mmHg ABG pO2 192 H (83-108) mmHg ABG HCO3 49 H* (21-25) mmol/L ABG Total CO2 (19-24) mmol/L ABG O2 Saturation 99.2 H (94-97) % Hemoglobin (11.4-16.0) gm/dL Sodium 127 L (137-145) mmol/L Chloride 91 L (98-107) mmol/L Carbon Dioxide 31 H (22-30) mmol/L Glucose 164 H (74-99) mg/dL POC Glucose (mg/dL) (70-110) mg/dL Calcium 7.5 L (8.4-10.2) mg/dL Total Protein 5.9 L (6.3-8.2) g/dL 02/05/24 02/05/24 02/05/24 Range/Units 19:02 20:56 23:40 WBC (3.8-10.6) k/uL Neutrophils # (1.3-7.7) k/uL Neutrophils # (Manual) (1.3-7.7) k/uL ABG pH 7.28 L 7.33 L (7.35-7.45) ABG pCO2 79 H* 72 H* (35-45) mmHg ABG pO2 61 L 69 L (83-108) mmHg ABG HCO3 37 H 38 H (21-25) mmol/L ABG Total CO2 40 H 40 H (19-24) mmol/L ABG O2 Saturation 91.6 L (94-97) % Hemoglobin 16.1 H (11.4-16.0) gm/dL Sodium (137-145) mmol/L Chloride (98-107) mmol/L Carbon Dioxide (22-30) mmol/L Glucose (74-99) mg/dL POC Glucose (mg/dL) 169 H (70-110) mg/dL Calcium (8.4-10.2) mg/dL Total Protein (6.3-8.2) g/dL 02/06/24 02/06/24 02/06/24 Range/Units 05:55 05:55 06:14 WBC 25.2 H (3.8-10.6) k/uL Neutrophils # 22.9 H (1.3-7.7) k/uL Neutrophils # (Manual) (1.3-7.7) k/uL ABG pH (7.35-7.45) ABG pCO2 65 H (35-45) mmHg ABG pO2 76 L (83-108) mmHg ABG HCO3 39 H (21-25) mmol/L ABG Total CO2 41 H (19-24) mmol/L ABG O2 Saturation (94-97) % Hemoglobin (11.4-16.0) gm/dL Sodium 131 L (137-145) mmol/L Chloride 93 L (98-107) mmol/L Carbon Dioxide 35 H (22-30) mmol/L Glucose 183 H (74-99) mg/dL POC Glucose (mg/dL) (70-110) mg/dL Calcium 8.3 L (8.4-10.2) mg/dL Total Protein (6.3-8.2) g/dL 02/06/24 Range/Units 06:22 WBC (3.8-10.6) k/uL Neutrophils # (1.3-7.7) k/uL Neutrophils # (Manual) (1.3-7.7) k/uL ABG pH (7.35-7.45) ABG pCO2 (35-45) mmHg ABG pO2 (83-108) mmHg ABG HCO3 (21-25) mmol/L ABG Total CO2 (19-24) mmol/L ABG O2 Saturation (94-97) % Hemoglobin (11.4-16.0) gm/dL Sodium (137-145) mmol/L Chloride (98-107) mmol/L Carbon Dioxide (22-30) mmol/L Glucose (74-99) mg/dL POC Glucose (mg/dL) 177 H (70-110) mg/dL Calcium (8.4-10.2) mg/dL Total Protein (6.3-8.2) g/dL
[2024-02-06] MEDS: IPRATROPIUM-ALBUTEROL 3 ML NEB INHALATION SCH (14:58)
[2024-02-06] MEDS: NOREPINEPHRINE 32 MG in SODIUM CHLORIDE 0.9% 218 ML IV SCH (15:13)
[2024-02-06 17:11] LABS: Glucose,Whole Blood 140 mg/dL (70-110)
--- NOTE | 2024-02-06 18:15 | PCN ---
PROCEDURE NOTE PROCEDURE PERFORMED: Right radial arterial line. PREOPERATIVE DIAGNOSES: Frequent blood draws, blood gas monitoring, hypotension. POSTOPERATIVE DIAGNOSES: Frequent blood draws, blood gas monitoring, hypotension. OPERATORS: Dr. Hancock, Dr. Huffman, and Dr. Holden. The patient's procedure was done in room 254. There was informed consent and universal timeout. DESCRIPTION OF PROCEDURE: ARTERIAL LINE PLACEMENT: Indications: Hemodynamic monitoring. A time-out was completed verifying correct patient, procedure, site, positioning, and implant(s) or special equipment if applicable. Sammy's test was performed to ensure adequate perfusion. The patient's right wrist or right groin was prepped and draped in sterile fashion. 1% Lidocaine was used to anesthetize the area. An 18G Arrow arterial line was introduced into the radial artery. The catheter was threaded over the guide wire and the needle was removed with appropriate pulsatile blood return. Blood loss was minimal. The catheter was then sutured in place to the skin and a sterile dressing applied. Perfusion to the extremity distal to the point of catheter insertion was checked and found to be adequate. We used the right radial artery. There was good blood return and waveform. The catheter was sutured in place. A sterile dressing was applied by the nurse. There was no immediate complication. The patient tolerated the procedure well. MMODL / IJN: [id number] /
[2024-02-06] MEDS: FORMOTEROL FUMARATE 20 MCG/2 ML NEBU INHALATION SCH (20:27)
[2024-02-06] MEDS: BUDESONIDE 1 MG/2 ML NEBU INHALATION SCH (20:27)
[2024-02-06 23:30] LABS: Glucose,Whole Blood 167 mg/dL (70-110)
[2024-02-07 05:04] LABS: Basophils % (A) 0 %; Eosinophils # (A) 0.1 k/uL (0-0.7); Eosinophils % (A) 1 %; HCT 38.3 % (34.0-46.0); HGB 12.5 gm/dL (11.4-16.0); Lymphocytes # (A) 1.5 k/uL (1.0-4.8); Lymphocytes % (A) 9 %; MCH 30.6 pg (25.0-35.0); MCHC 32.5 g/dL (31.0-37.0); MCV 94.1 fL (80.0-100.0); Mean Platelet Volume 7.7; Monocytes # (A) 0.5 k/uL (0-1.0); Monocytes % (A) 3 %; Neutrophils # (A) 14.5 k/uL (1.3-7.7); Neutrophils % (A) 87 %; Platelet Count 174 k/uL (150-450); RBC 4.07 m/uL (3.80-5.40); RDW 13.4 % (11.5-15.5); WBC 16.7 k/uL (3.8-10.6)
[2024-02-07 05:21] LABS: Glucose,Whole Blood 147 mg/dL (70-110)
[2024-02-07 05:30] LABS: African American GFR (CKD) >90 (>60 ml/min/1.73 sqM); Anion Gap -4 mmol/L; Blood Urea Nitrogen 17 mg/dL (7-17); Calcium 8.2 mg/dL (8.4-10.2); Carbon Dioxide 38 mmol/L (22-30); Chloride 99 mmol/L (98-107); Glucose 163 mg/dL (74-99); Magnesium 2.6 mg/dL (1.6-2.3); Non-African American GFR(CKD) >90 (>60 ml/min/1.73 sqM); Potassium 3.6 mmol/L (3.5-5.1); Sodium 133 mmol/L (137-145)
[2024-02-07] MEDS ORDERED: Potassium Replacement Protocol 1 EACH MISC MISCELLANE PRN (05:34)
[2024-02-07] MEDS: POTASSIUM BICARBONATE/CIT AC 20 MEQ TABLET.EFF NG-TUBE SCH (06:04)
[2024-02-07 06:54] LABS: ABG Base Excess 10.8 mmol/L; ABG HCO3 39 mmol/L (21-25); ABG Oxygen Saturation 96.7 % (94-97); ABG PCO2 68 mmHg (35-45); ABG PH 7.37 (7.35-7.45); ABG PO2 80 mmHg (83-108); ABG TCO2 41 mmol/L (19-24); Allen Test Performed? Yes
--- NOTE | 2024-02-07 08:18 | XR ---
EXAMINATION TYPE: XR chest 1V portable DATE OF EXAM: 02/07/2024 5:32 AM COMPARISON: Chest radiographs from 02/06/2024 CLINICAL INDICATION: Female, 63 years old with history of shortness of breath; [facility] TECHNIQUE: XR chest 1V portable Frontal view of the chest. FINDINGS: Lungs/Pleura: Hazy and reticular opacities in the lung bases. There is no evidence of pleural effusio n, focal consolidation, or pneumothorax. Pulmonary vascularity: Unremarkable. Heart/mediastinum: Cardiomediastinal silhouette is unremarkable. Musculoskeletal: No acute osseous pathology. Other findings: None Lines/Tubes: Endotracheal tube with distal tip 5.5 cm above the piero. Nasogastric tube with its distal tip and side-port projecting under the diaphragm. Right internal jugular central venous catheter with distal tip at the cavoatrial junction. IMPRESSION: Appropriate placement of support tubes. Similar appearance of the lungs with hazy/reticular opacities in the lung bases. [facility], , 02/07/2024 8:16 AM
[2024-02-07 08:40] LABS: Glucose,Whole Blood 126 mg/dL (70-110)
--- NOTE | 2024-02-07 11:42 | P.PN ---
Subjective Progress Note Date: 02/07/24 Principal diagnosis: Respiratory failure. Pulmonary consult dated February 05, 2024. This is a 63-year-old female who was transferred down from [facility]. She apparently was at [place] yesterday, diagnosed as having pneumonia, given Omnicef 300 twice a day, discharged from the emergency department. She apparently came back today, with worsened respiratory distress, and ended up requiring intubation, and mechanical ventilation, and was shipped down to [facility]. I saw her in the emergency department, trauma room 2. She is on the mechanical ventilator. The respiratory therapist switch her from volume assist-control, because of high airway pressures to pressure assist control. Her inspiratory pressure or Pi is 20 cm of water. Her inspiratory time or Ti is 0.7 seconds. The patient is receiving 100% oxygen, with a PEEP of 5, and a rate of 14 breaths/min. She was given Rocephin and vancomycin at the outside hospital. She is currently on propofol at 10 mcg/kg/min, norepinephrine at 0.05 mcg/kg/min. She is not currently receiving any IV fluids. Current labs include a white count 33.3, hemoglobin hematocrit and platelet count all normal. Sodium 127, potassium 4, chlorides 91, CO2 31, glucose 164. Calcium 7.5. N- terminal proBNP 3140. Chest x-ray may show some bibasilar atelectasis or infiltrates. There may be concern for a small left apical pneumothorax. A CT scan was ordered. Progress note dated February 06, 2024. This is a 63-year-old female seen today in room 254. The patient remains on volume assist-control, rate 30, tidal volume 350, FiO2 70%, PEEP of 8. Blood gases show pO2 76, pCO2 65, pH is 7.39. The patient is on saline at 100 cc an hour, norepinephrine at 2 mcg/min, propofol at 35 mcg/kg/min and Nimbex at 1 mcg/kg/min, with [id number] monitoring. The patient has a history of COPD, ongoing tobacco use, lymphoma, and pneumonia. Today, an arterial line will be placed. Will start tube feedings. In addition, the patient will be started on budesonide, and formoterol, usual doses. White count 25.2, hemoglobin 14.5, hematocrit 44.2, platelet count normal. Sodium 131, potassium 4, chloride 93, CO2 35, BUN 13, creatinine 0.52. Troponins were 0.018, and 0.013. Glucose is 177. Chest x-ray shows bibasilar opacities, potentially consistent with pneumonia. Patient continues on Rocephin and azithromycin for possible community-acquired pneumonia. Progress note dated February 07, 2024. 63-year-old female seen in room 254. The patient continues on the mechanical ventilator. She is on volume assist-control, rate 30, tidal line 350, FiO2 60%, PEEP of 8. Blood gases show pO2 of 80, pCO2 of 68, pH is 7.37. The patient still has a high peak airway pressure relative to the plateau pressure, and she still quite bronchospastic. Likely not ready to wean. The patient is on propofol at 40 mcg/kg/min, saline at 100 cc an hour, and vital HP at 40 cc an hour, with a goal of 50. We will attempt a daily interruption of sedation today. The patient's procalcitonin level was 0.26. After 3 days of azithromycin, and Rocephin, antibiotics will be discontinued. White count of 16.7, hemoglobin hematocrit and platelet count all normal. Sodium 133, potassium 3.6, chlorides 99, CO2 38, BUN 17, creatinine 0.60. Glucose is 126. Magnesium 2.6. Cultures are thus far negative. Chest x-ray shows bilateral diffuse and patchy infiltrates. Objective - Vital Signs Vital signs: Vital Signs Temp 97.5 F L 02/07/24 08:00 Pulse 74 02/07/24 11:00 Resp 30 H 02/07/24 11:00 BP 106/62 02/06/24 20:00 Pulse Ox 99 02/07/24 11:00 FiO2 60 02/07/24 11:00 Intake & Output 02/06/24 02/07/24 02/07/24 18:59 06:59 18:59 Intake Total 2076.047 1857.236 968.243 Output Total 455 470 350 Balance 0656.755 5236.236 618.243 Weight 83.2 kg 86 kg Intake: IV 521 1236 515 Pressure Bag (0.9 Sodium 21 36 15 Chloride) Sodium Chloride 0.9% 1, 500 1200 500 000 ml @ 100 mls/hr IV . Q10H [facility] Rx#:[id number] Intake, IV Titration 1445.047 181.236 193.243 Amount Azithromycin 500 mg In 250 Sodium Chloride 0.9% 250 ml @ 250 mls/hr IVPB DAILY [facility] Rx#:[id number] Cisatracurium 200 mg In 149.799 80.371 Sodium Chloride 0.9% 180 ml @ 1 MCG/KG/MIN 5.382 mls/hr IV .Q24H [facility] Rx#: [id number] Norepinephrine 32 mg In 1.579 2.912 Sodium Chloride 0.9% 218 ml @ 0.02 MCG/KG/MIN 0.78 mls/hr IV .Q24H [facility] Rx#: [id number] Norepinephrine 32 mg In 11.324 Sodium Chloride 0.9% 218 ml @ 0.03 MCG/KG/MIN 1. 261 mls/hr IV .Q24H [facility] Rx#:[id number] Sodium Chloride 0.9% 1, 700 000 ml @ 100 mls/hr IV . Q10H [facility] Rx#:[id number] cefTRIAXone 2 gm In 50 Sodium Chloride 0.9% 50 ml @ 100 mls/hr IVPB Q24HR [facility] Rx#:[id number] propofoL 1,000 mg In 282.345 178.324 112.872 Empty Bag 1 bag @ 15 MCG/ KG/MIN 8.073 mls/hr IV . [id number] [facility] Rx#:[id number] Tube Feeding 80 350 200 Other 30 90 60 Output: Urine 455 470 350 Other: Voiding Method Indwelling Catheter Indwelling Catheter Indwelling Catheter ABP, PAP, CO, CI - Last Documented Arterial Blood Pressure 128/56 - Exam No acute distress, sedated with propofol, with an orally placed endotracheal tube. The patient is sedated. HEENT examination is grossly unremarkable. Neck supple. Full range of motion. No adenopathy thyromegaly or neck vein dis tention. Cardiovascular examination reveals regular rhythm rate. S1-S2 normal. No S3 or S4. No discernible murmur noted. Heart sounds are distant. Lungs reveal very diminished breath sounds. There is expiratory rhonchi and wheezes. Breath sounds are equal but diminished. No crackles. Abdomen is soft, without bowel sounds. No obvious masses. Extremities are intact. No cyanosis clubbing or edema. Skin is without rash or lesion. Neurologic examination cannot be assessed at this time. - Labs CBC & Chem 7: 02/07/24 04:44 02/07/24 04:44 Labs: Abnormal Lab Results - Last 24 Hours (Table) 02/06/24 02/06/24 02/06/24 Range/Units 05:55 13:58 17:05 WBC (3.8-10.6) k/uL Neutrophils # (1.3-7.7) k/uL ABG pCO2 (35-45) mmHg ABG pO2 (83-108) mmHg ABG HCO3 (21-25) mmol/L ABG Total CO2 (19-24) mmol/L Sodium (137-145) mmol/L Carbon Dioxide (22-30) mmol/L Glucose (74-99) mg/dL POC Glucose (mg/dL) 130 H 140 H (70-110) mg/dL Hemoglobin A1c 6.3 H (<=6.0) % Calcium (8.4-10.2) mg/dL Magnesium (1.6-2.3) mg/dL 02/06/24 02/07/24 02/07/24 Range/Units 23:29 04:44 04:44 WBC 16.7 H (3.8-10.6) k/uL Neutrophils # 14.5 H (1.3-7.7) k/uL ABG pCO2 (35-45) mmHg ABG pO2 (83-108) mmHg ABG HCO3 (21-25) mmol/L ABG Total CO2 (19-24) mmol/L Sodium 133 L (137-145) mmol/L Carbon Dioxide 38 H (22-30) mmol/L Glucose 163 H (74-99) mg/dL POC Glucose (mg/dL) 167 H (70-110) mg/dL Hemoglobin A1c (<=6.0) % Calcium 8.2 L (8.4-10.2) mg/dL Magnesium 2.6 H (1.6-2.3) mg/dL 02/07/24 02/07/24 02/07/24 Range/Units 05:20 06:12 08:38 WBC (3.8-10.6) k/uL Neutrophils # (1.3-7.7) k/uL ABG pCO2 68 H (35-45) mmHg ABG pO2 80 L (83-108) mmHg ABG HCO3 39 H (21-25) mmol/L ABG Total CO2 41 H (19-24) mmol/L Sodium (137-145) mmol/L Carbon Dioxide (22-30) mmol/L Glucose (74-99) mg/dL POC Glucose (mg/dL) 147 H 126 H (70-110) mg/dL Hemoglobin A1c (<=6.0) % Calcium (8.4-10.2) mg/dL Magnesium (1.6-2.3) mg/dL Microbiology - Last 24 Hours (Table) 02/06/24 03:47 Gram Stain - Preliminary Sputum Sputum Culture - Preliminary 02/05/24 20:04 Blood Culture - Preliminary Blood 02/05/24 19:52 Blood Culture - Preliminary Blood Assessment and Plan Assessment: Acute hypoxemic respiratory failure requiring intubation and mechanical ventilation, February 05, 2024. Possible bibasilar pneumonia. Possible left apical pneumothorax, not seen on CT scan. Hypotension, likely related to either volume depletion, positive pressure ventilation and/or sepsis. History of COPD from previous heavy tobacco use. History of lymphoma. History of pneumonia. Plan: Plan dated February 05, 2024. Not much is known about this patient at this time. She apparently was in the [place] ER yesterday and was diagnosed as having pneumonia, given Omnicef and sent home. Subsequent to that, she came back into the ER today, with worsening respiratory distress, required intubation and mechanical ventilation. The patient was seen in the emergency room, trauma room 2. She is currently on the mechanical ventilator. She was switched from volume assist-control, to pressure assist control. She is currently on propofol for sedation, and a small dose of norepinephrine at 0.05 mcg/kg/min. Labs, have been ordered. I have asked for a CT scan of the chest, to see whether or not there is a left apical pneumothorax. Additional recommendations and suggestions are forthcoming. Plan dated February 06, 2024. The patient is seen in room 254. The patient is currently on the ventilator, with pO2 of 76, pCO2 of 65, pH is 7.39. The patient is getting saline at 100 cc an hour, norepinephrine at 2 mcg/min, propofol at 35 mcg/kg/min, and Nimbex at 1 mcg/kg/min with [id number] monitoring. The patient has a history of COPD from tobacco use, lymphoma, and pneumonia. We add budesonide formoterol, twice a day, and restart tube feeds. In addition, an arterial line is placed. I did have a chance to speak to the family. I spoke to her brother and her . I gave them an update. There is no apical pneumothorax seen on CT scan. We will continue to follow make recommendations where appropriate. Overall prognosis remains guarded. The patient has significant airways resistance. The peak airway pressure was 35 cm of water. The Plateau pressure was 19 cm of water. Airways resistance was 16 cm of water per liter per second. Static lung compliance was also low at 31.8 mL/cm water and dynamic lung compliance was low at 13 mL/cm water. Plan dated February 07, 2024. The patient will get 1 more day of antibiotics, and then afterwards, will be discontinued. Her procalcitonin level is 0.26, which is in the normal range. The patient's peak airway pressure is quite high compared to her plateau pressure. That would suggest that she still quite bronchospastic, with increased airways resistance. Therefore, the patient will not have a spontaneous breathing trial. Labs, x-rays, and all medications are reviewed. The patient's procalcitonin level was 0.26. The patient remains on propofol at 40 mcg/kg/min. She is getting tube feedings with vital HP at 40 cc an hour, with a goal of 50. pO2 80, pCO2 of 68, and pH 7.37. Dictation was produced using [employer] dictation software. Please excuse any grammatical, word or spelling errors. Time with Patient: Greater than 30
[2024-02-07 12:46] LABS: Glucose,Whole Blood 91 mg/dL (70-110)
--- NOTE | 2024-02-07 12:50 | P.PN ---
Subjective Progress Note Date: 02/07/24 63 year old F with PMH of COPD smoking 2PPD presents to the ED for altered mentation and acute hypoxic respiratory failure. Her is at bedside providing history. Patient has a chronic dry cough. However, over the past 2 weeks her cough has been more productive described as glue. She was admitted at [place] 2 days ago for COPD exacerbation and bilateral pneumonia. Patient requested to go home, and she was discharged on 4L NC, steroids and antibiotics. Since then, she has progressively worsened. She initially presented to [facility]. She was intubated and transferred to [facility] for higher level of care. Initial BP 114/69, T 96.8F, HR 87, RR 20, 100%, mechanically intubated. CBC, Coag panel, CMP significant for WBC 33.3, Na 127, Cl 91, bicarb 31, glu 164, Ca 7.5. Lactic acid 1.5. Mag 1.9. BNP 3140. CXR concerning for L PTX, bibasilar airspace opacities. Chest CT no PTX, severe emphysema, bibasilar atelectasis, right adrenal nodule, elevated L diaphragm, mild pectus excavatum. Started on Rocephin, Azithromycin, SoluMedrol, Levophed and admitted to ICU for further workup and management. Started on Rocephin Azithromycin, SoluMedrol, DuoNeb. 02/05 Patient was seen and examined. Currently on Nimbex at 2 mcg/kg/min and Propofol at 35 mcg/kg/min. Pressors include Levophed at 0.04 mcg/kg/min. Antibiotics include Rocephin and Azithromycin. CBC and BMP significant for WBC 25.2, Na 131, Cl 93, bicarb 35, glu 183, Ca 8.3. Mag 2.3. EKG shows sinus rhythm with no ST T wave changes. COVID, RSV, Flu neg. CXR with bibasilar opacities. 02/06 Patient was seen and examined. Currently on Propofol at 50 mcg/kg/min. Levophed has been weaned off. Antibiotics include Rocephin 2g IV QD and Azithromycin 500 mg IV QD. CBC and BMP significant for WBC 16.7, Na 133, bicarb 38, glu 163, Ca 8.2. Mag 2.6. Echo shows EF 55-60%. Procal is 0.26. A1c is 6.3. Sputum Cx few PMN, rare GPC and GNB. BCx neg at 24H. Troponin 0.018, 0.013. CXR remains stable to yesterdays CXR. General: Intubated Derm: warm, dry Head: atraumatic, normocephalic, symmetric Eyes: no lid lag, anicteric sclera Mouth: no lip lesion, mucus membranes moist Cardiovascular: S1S2 reg, no murmur Lungs: Decreased BS bilateral, no rhonchi, no rales , mechanically ventilated Abdominal: soft, non tender to palpation Ext: no gross muscle atrophy, no edema, no contractures Neuro: Unable to determine Psych: Unable to determine Based on my assessment of this patient, this patient meets a high complexity level of care. Acute metabolic encephalopathy likely due to below Acute hypoxic respiratory failure likely due to below: Echocardiogram as above. ACS ruled out. Acute COPD exacerbation: SoluMedrol 60 mg IV Q6H. DuoNeb QID scheduled and Q2H PRN for SOB/wheezing. Pulmicort 1 mg INH BID. Telemetry monitoring. Pulmonary on board. Septic shock secondary to bilateral pnuemonia: Wean Levophed to maintain MAP > 65. Rocephin 2g IV QD and Azithromycin 500 mg IV QD (D3). Procal 0.26. Legionella Ag, COVID/RSV/Flu neg. Sputum Cx PMN, GPC, GNB. BCx prelim neg. NS at 100 cc/hr. Hyponatremia: Improvement with IV hydration. Metabolic alkalosis as compensation for respiratory acidosis Diabetes mellitus: A1c 6.3. ISS Q6H. Accuchecks ACHS. CODE STATUS: FULL CODE DVT Prophylaxis: Lovenox SQ GI Prophylaxis: Protonix IV Designated medical POA if patient is not able to make medical decisions for themselves: . I have reviewed the following sap [employer] consultant notes: Pulmonary note. I have reviewed the results of the following tests: As above. I have ordered the following tests: As above. I have discussed the care of this patient with the following independent historian: I have independently interpreted the following test below: CXR I have discussed the management of this patient with the following physician: Objective - Vital Signs Vital signs: Vital Signs Temp 99.0 F 02/07/24 04:00 Pulse 72 02/07/24 07:00 Resp 30 H 02/07/24 07:58 BP 106/62 02/06/24 20:00 Pulse Ox 97 02/07/24 07:00 FiO2 60 02/07/24 07:58 Intake & Output 02/06/24 02/07/24 02/07/24 18:59 06:59 18:59 Intake Total 2076.047 1857.236 243 Output Total 455 470 50 Balance 3997.445 4801.236 193 Weight 83.2 kg 86 kg Intake: IV 521 1236 103 Pressure Bag (0.9 Sodium 21 36 3 Chloride) Sodium Chloride 0.9% 1, 500 1200 100 000 ml @ 100 mls/hr IV . Q10H [facility] Rx#:[id number] Intake, IV Titration 1445.047 181.236 100 Amount Azithromycin 500 mg In 250 Sodium Chloride 0.9% 250 ml @ 250 mls/hr IVPB DAILY [facility] Rx#:[id number] Cisatracurium 200 mg In 149.799 Sodium Chloride 0.9% 180 ml @ 1 MCG/KG/MIN 5.382 mls/hr IV .Q24H [facility] Rx#: [id number] Norepinephrine 32 mg In 1.579 2.912 Sodium Chloride 0.9% 218 ml @ 0.02 MCG/KG/MIN 0.78 mls/hr IV .Q24H [facility] Rx#: [id number] Norepinephrine 32 mg In 11.324 Sodium Chloride 0.9% 218 ml @ 0.03 MCG/KG/MIN 1. 261 mls/hr IV .Q24H [facility] Rx#:[id number] Sodium Chloride 0.9% 1, 700 000 ml @ 100 mls/hr IV . Q10H [facility] Rx#:[id number] cefTRIAXone 2 gm In 50 Sodium Chloride 0.9% 50 ml @ 100 mls/hr IVPB Q24HR [facility] Rx#:[id number] propofoL 1,000 mg In 282.345 178.324 100 Empty Bag 1 bag @ 15 MCG/ KG/MIN 8.073 mls/hr IV . [id number] [facility] Rx#:[id number] Tube Feeding 80 350 40 Other 30 90 Output: Urine 455 470 50 Other: Voiding Method Indwelling Catheter Indwelling Catheter Indwelling Catheter ABP, PAP, CO, CI - Last Documented Arterial Blood Pressure 113/51 - Labs CBC & Chem 7: 02/07/24 04:44 11/22/24 04:44 Labs: Abnormal Lab Results - Last 24 Hours (Table) 02/06/24 02/06/24 02/06/24 Range/Units 05:55 13:58 17:05 WBC (3.8-10.6) k/uL Neutrophils # (1.3-7.7) k/uL ABG pCO2 (35-45) mmHg ABG pO2 (83-108) mmHg ABG HCO3 (21-25) mmol/L ABG Total CO2 (19-24) mmol/L Sodium (137-145) mmol/L Carbon Dioxide (22-30) mmol/L Glucose (74-99) mg/dL POC Glucose (mg/dL) 130 H 140 H (70-110) mg/dL Hemoglobin A1c 6.3 H (<=6.0) % Calcium (8.4-10.2) mg/dL Magnesium (1.6-2.3) mg/dL 02/06/24 02/07/24 02/07/24 Range/Units 23:29 04:44 04:44 WBC 16.7 H (3.8-10.6) k/uL Neutrophils # 14.5 H (1.3-7.7) k/uL ABG pCO2 (35-45) mmHg ABG pO2 (83-108) mmHg ABG HCO3 (21-25) mmol/L ABG Total CO2 (19-24) mmol/L Sodium 133 L (137-145) mmol/L Carbon Dioxide 38 H (22-30) mmol/L Glucose 163 H (74-99) mg/dL POC Glucose (mg/dL) 167 H (70-110) mg/dL Hemoglobin A1c (<=6.0) % Calcium 8.2 L (8.4-10.2) mg/dL Magnesium 2.6 H (1.6-2.3) mg/dL 02/07/24 02/07/24 Range/Units 05:20 06:12 WBC (3.8-10.6) k/uL Neutrophils # (1.3-7.7) k/uL ABG pCO2 68 H (35-45) mmHg ABG pO2 80 L (83-108) mmHg ABG HCO3 39 H (21-25) mmol/L ABG Total CO2 41 H (19-24) mmol/L Sodium (137-145) mmol/L Carbon Dioxide (22-30) mmol/L Glucose (74-99) mg/dL POC Glucose (mg/dL) 147 H (70-110) mg/dL Hemoglobin A1c (<=6.0) % Calcium (8.4-10.2) mg/dL Magnesium (1.6-2.3) mg/dL Microbiology - Last 24 Hours (Table) 02/05/24 20:04 Blood Culture - Preliminary Blood 02/05/24 19:52 Blood Culture - Preliminary Blood 02/06/24 03:47 Gram Stain - Preliminary Sputum
[2024-02-07 18:20] LABS: Glucose,Whole Blood 142 mg/dL (70-110)
[2024-02-07] MEDS: CHLORHEXIDINE GLUCONATE 15 ML CUP MUCOUS MEM SCH (20:27)
[2024-02-07 23:28] LABS: Glucose,Whole Blood 135 mg/dL (70-110)
[2024-02-08 04:25] LABS: ABG Base Excess 11.3 mmol/L; ABG HCO3 39 mmol/L (21-25); ABG Oxygen Saturation 94.7 % (94-97); ABG PCO2 64 mmHg (35-45); ABG PH 7.39 (7.35-7.45); ABG PO2 69 mmHg (83-108); ABG TCO2 41 mmol/L (19-24); Allen Test Performed? Yes
[2024-02-08 04:41] LABS: Basophils % (A) 0 %; Eosinophils # (A) 0.1 k/uL (0-0.7); Eosinophils % (A) 0 %; HCT 38.3 % (34.0-46.0); HGB 12.2 gm/dL (11.4-16.0); Lymphocytes % (A) 6 %; MCH 30.5 pg (25.0-35.0); MCV 95.5 fL (80.0-100.0); Mean Platelet Volume 7.9; Monocytes # (A) 0.3 k/uL (0-1.0); Monocytes % (A) 2 %; Neutrophils # (A) 14.3 k/uL (1.3-7.7); Neutrophils % (A) 91 %; Platelet Count 202 k/uL (150-450); RBC 4.01 m/uL (3.80-5.40); RDW 13.7 % (11.5-15.5); WBC 15.7 k/uL (3.8-10.6)
[2024-02-08 04:54] LABS: African American GFR (CKD) >90 (>60 ml/min/1.73 sqM); Anion Gap -2 mmol/L; Blood Urea Nitrogen 20 mg/dL (7-17); Calcium 8.3 mg/dL (8.4-10.2); Carbon Dioxide 38 mmol/L (22-30); Chloride 103 mmol/L (98-107); Glucose 160 mg/dL (74-99); Magnesium 2.4 mg/dL (1.6-2.3); Non-African American GFR(CKD) >90 (>60 ml/min/1.73 sqM); Sodium 139 mmol/L (137-145)
[2024-02-08 05:16] LABS: Potassium 4.3 mmol/L (3.5-5.1)
[2024-02-08 05:36] LABS: Glucose,Whole Blood 165 mg/dL (70-110)
--- NOTE | 2024-02-08 08:00 | XR ---
EXAMINATION TYPE: XR chest 1V portable DATE OF EXAM: 02/08/2024 COMPARISON: 02/07/2024 HISTORY: Shortness of breath TECHNIQUE: Single frontal view of the chest is obtained. FINDINGS: The ET tube is 7.2 cm above the piero. There is an NG tube within the stomach. There is a right jugular central venous catheter in the SVC/RA junction. There is a small left pleural effusion which appears to have increased mildly in the interval. There is a stable mild interstitial process in the lung bases possibly chronic in nature. There is lucency in the upper lobes consistent with COPD IMPRESSION: 1. ET tube 7.2 cm above the piero. 2. Mild interval worsening in left pleural effusion. 3. Stable chronic changes as described above. [facility], , 02/08/2024 7:58 AM
--- NOTE | 2024-02-08 10:26 | P.PN ---
Subjective Progress Note Date: 02/08/24 Principal diagnosis: Respiratory failure. Pulmonary consult dated February 05, 2024. This is a 63-year-old female who was transferred down from [facility]. She apparently was at [place] yesterday, diagnosed as having pneumonia, given Omnicef 300 twice a day, discharged from the emergency department. She apparently came back today, with worsened respiratory distress, and ended up requiring intubation, and mechanical ventilation, and was shipped down to [facility]. I saw her in the emergency department, trauma room 2. She is on the mechanical ventilator. The respiratory therapist switch her from volume assist-control, because of high airway pressures to pressure assist control. Her inspiratory pressure or Pi is 20 cm of water. Her inspiratory time or Ti is 0.7 seconds. The patient is receiving 100% oxygen, with a PEEP of 5, and a rate of 14 breaths/min. She was given Rocephin and vancomycin at the outside hospital. She is currently on propofol at 10 mcg/kg/min, norepinephrine at 0.05 mcg/kg/min. She is not currently receiving any IV fluids. Current labs include a white count 33.3, hemoglobin hematocrit and platelet count all normal. Sodium 127, potassium 4, chlorides 91, CO2 31, glucose 164. Calcium 7.5. N- terminal proBNP 3140. Chest x-ray may show some bibasilar atelectasis or infiltrates. There may be concern for a small left apical pneumothorax. A CT scan was ordered. Progress note dated February 06, 2024. This is a 63-year-old female seen today in room 254. The patient remains on volume assist-control, rate 30, tidal volume 350, FiO2 70%, PEEP of 8. Blood gases show pO2 76, pCO2 65, pH is 7.39. The patient is on saline at 100 cc an hour, norepinephrine at 2 mcg/min, propofol at 35 mcg/kg/min and Nimbex at 1 mcg/kg/min, with [id number] monitoring. The patient has a history of COPD, ongoing tobacco use, lymphoma, and pneumonia. Today, an arterial line will be placed. Will start tube feedings. In addition, the patient will be started on budesonide, and formoterol, usual doses. White count 25.2, hemoglobin 14.5, hematocrit 44.2, platelet count normal. Sodium 131, potassium 4, chloride 93, CO2 35, BUN 13, creatinine 0.52. Troponins were 0.018, and 0.013. Glucose is 177. Chest x-ray shows bibasilar opacities, potentially consistent with pneumonia. Patient continues on Rocephin and azithromycin for possible community-acquired pneumonia. Progress note dated February 07, 2024. 63-year-old female seen in room 254. The patient continues on the mechanical ventilator. She is on volume assist-control, rate 30, tidal line 350, FiO2 60%, PEEP of 8. Blood gases show pO2 of 80, pCO2 of 68, pH is 7.37. The patient still has a high peak airway pressure relative to the plateau pressure, and she still quite bronchospastic. Likely not ready to wean. The patient is on propofol at 40 mcg/kg/min, saline at 100 cc an hour, and vital HP at 40 cc an hour, with a goal of 50. We will attempt a daily interruption of sedation today. The patient's procalcitonin level was 0.26. After 3 days of azithromycin, and Rocephin, antibiotics will be discontinued. White count of 16.7, hemoglobin hematocrit and platelet count all normal. Sodium 133, potassium 3.6, chlorides 99, CO2 38, BUN 17, creatinine 0.60. Glucose is 126. Magnesium 2.6. Cultures are thus far negative. Chest x-ray shows bilateral diffuse and patchy infiltrates. Progress note dated February 08, 2024. 63-year-old female seen today in room 254. She remains on mechanical ventilator. She is on volume assist-control, rate 30, tidal line 350, FiO2 60%, PEEP of 8. Blood gases show pO2 of 69, pCO2 of 64, pH is 7.39. The patient still has a very large difference between peak airway pressure and plateau pressure. Calculated airways resistance is 16 cmH2O per liter per second. The patient is currently on propofol at 40 mcg/kg/min, saline at 100 cc an hour, and vital high-protein at 40, which is goal. Today we add some Dilaudid. The patient will not have a spontaneous breathing trial today. White count 15.7, hemoglobin 12.2, hematocrit 38.3, platelet count normal. Sodium 139, potassium 4.3, chlorides 103, CO2 38, BUN 20, creatinine 0.51. Magnesium is 2.4. Calcium 8.3. Cultures are currently negative. Chest x-ray shows an endotracheal tube that needs to be placed on a couple centimeters, and a left pleural effusion. Objective - Vital Signs Vital signs: Vital Signs Temp 98.8 F 02/08/24 04:00 Pulse 95 02/08/24 09:00 Resp 30 H 02/08/24 09:00 BP 158/75 02/08/24 09:00 Pulse Ox 94 L 02/08/24 09:00 FiO2 60 02/08/24 08:10 Intake & Output 02/07/24 02/08/24 02/08/24 18:59 06:59 18:59 Intake Total 2516.371 1977.087 517.664 Output Total 950 1155 230 Balance 1566.371 822.087 287.664 Weight 86 kg 87 kg Intake: IV 1536 1236 309 Azithromycin 500 mg In 250 Sodium Chloride 0.9% 250 ml @ 250 mls/hr IVPB DAILY [facility] Rx#:[id number] Pressure Bag (0.9 Sodium 36 36 9 Chloride) Sodium Chloride 0.9% 1, 1200 1200 300 000 ml @ 100 mls/hr IV . Q10H [facility] Rx#:[id number] cefTRIAXone 2 gm In 50 Sodium Chloride 0.9% 50 ml @ 100 mls/hr IVPB Q24HR [facility] Rx#:[id number] Intake, IV Titration 380.371 171.087 58.664 Amount Cisatracurium 200 mg In 80.371 Sodium Chloride 0.9% 180 ml @ 1 MCG/KG/MIN 5.382 mls/hr IV .Q24H [facility] Rx#: [id number] propofoL 1,000 mg In 300.000 171.087 58.664 Empty Bag 1 bag @ 15 MCG/ KG/MIN 8.073 mls/hr IV . [id number] [facility] Rx#:[id number] Tube Feeding 480 480 120 Other 120 90 30 Output: Urine 950 1155 230 Other: Voiding Method Indwelling Catheter Indwelling Catheter Indwelling Catheter ABP, PAP, CO, CI - Last Documented Arterial Blood Pressure 114/88 - Exam No acute distress, sedated with propofol, with an orally placed endotracheal tube. The patient is sedated. HEENT examination is grossly unremarkable. Neck supple. Full range of motion. No adenopathy thyromegaly or neck vein distention. Cardiovascular examination reveals regular rhythm rate. S1-S2 normal. No S3 or S4. No discernible murmur noted. Heart sounds are distant. Lungs reveal very diminished breath sounds. There is expiratory rhonchi and wheezes. Breath sounds are equal but diminished. No crackles. Abdomen is soft, without bowel sounds. No obvious masses. Extremities are intact. No cyanosis clubbing or edema. Skin is without rash or lesion. Neurologic examination cannot be assessed at this time. - Labs CBC & Chem 7: 02/08/24 03:21 02/08/24 03:21 Labs: Abnormal Lab Results - Last 24 Hours (Table) 02/07/24 02/07/24 02/08/24 Range/Units 18:19 23:26 03:21 WBC 15.7 H (3.8-10.6) k/uL Neutrophils # 14.3 H (1.3-7.7) k/uL ABG pCO2 (35-45) mmHg ABG pO2 (83-108) mmHg ABG HCO3 (21-25) mmol/L ABG Total CO2 (19-24) mmol/L Carbon Dioxide (22-30) mmol/L BUN (7-17) mg/dL Creatinine (0.52-1.04) mg/dL Glucose (74-99) mg/dL POC Glucose (mg/dL) 142 H 135 H (70-110) mg/dL Calcium (8.4-10.2) mg/dL Magnesium (1.6-2.3) mg/dL 02/08/24 02/08/24 02/08/24 Range/Units 03:21 04:23 05:34 WBC (3.8-10.6) k/uL Neutrophils # (1.3-7.7) k/uL ABG pCO2 64 H (35-45) mmHg ABG pO2 69 L (83-108) mmHg ABG HCO3 39 H (21-25) mmol/L ABG Total CO2 41 H (19-24) mmol/L Carbon Dioxide 38 H (22-30) mmol/L BUN 20 H (7-17) mg/dL Creatinine 0.51 L (0.52-1.04) mg/dL Glucose 160 H (74-99) mg/dL POC Glucose (mg/dL) 165 H (70-110) mg/dL Calcium 8.3 L (8.4-10.2) mg/dL Magnesium 2.4 H (1.6-2.3) mg/dL Microbiology - Last 24 Hours (Table) 02/06/24 03:47 Gram Stain - Final Sputum Sputum Culture - Final 02/05/24 20:04 Blood Culture - Preliminary Blood 02/05/24 19:52 Blood Culture - Preliminary Blood Assessment and Plan Assessment: Acute hypoxemic respiratory failure requiring intubation and mechanical ventilation, February 05, 2024. Possible bibasilar pneumonia. Possible left apical pneumothorax, not seen on CT scan. Hypotension, likely related to either volume depletion, positive pressure ve ntilation and/or sepsis. History of COPD from previous heavy tobacco use. History of lymphoma. History of pneumonia. Plan: Plan dated February 05, 2024. Not much is known about this patient at this time. She apparently was in the [place] ER yesterday and was diagnosed as having pneumonia, given Omnicef and sent home. Subsequent to that, she came back into the ER today, with worsening respiratory distress, required intubation and mechanical ventilation. The patient was seen in the emergency room, trauma room 2. She is currently on the mechanical ventilator. She was switched from volume assist-control, to pressure assist control. She is currently on propofol for sedation, and a small dose of norepinephrine at 0.05 mcg/kg/min. Labs, have been ordered. I have asked for a CT scan of the chest, to see whether or not there is a left apical pneumothorax. Additional recommendations and suggestions are forthcoming. Plan dated February 06, 2024. The patient is seen in room 254. The patient is currently on the ventilator, with pO2 of 76, pCO2 of 65, pH is 7.39. The patient is getting saline at 100 cc an hour, norepinephrine at 2 mcg/min, propofol at 35 mcg/kg/min, and Nimbex at 1 mcg/kg/min with puqke-qq-aegw monitoring. The patient has a history of COPD from tobacco use, lymphoma, and pneumonia. We add budesonide formoterol, twice a day, and restart tube feeds. In addition, an arterial line is placed. I did have a chance to speak to the family. I spoke to her brother and her . I gave them an update. There is no apical pneumothorax seen on CT scan. We will continue to follow make recommendations where appropriate. Overall prognosis remains guarded. The patient has significant airways resistance. The peak airway pressure was 35 cm of water. The Plateau pressure was 19 cm of water. Airways resistance was 16 cm of water per liter per second. Static lung compliance was also low at 31.8 mL/cm water and dynamic lung compliance was low at 13 mL/cm water. Plan dated February 07, 2024. The patient will get 1 more day of antibiotics, and then afterwards, will be discontinued. Her procalcitonin level is 0.26, which is in the normal range. The patient's peak airway pressure is quite high compared to her plateau pressure. That would suggest that she still quite bronchospastic, with increased airways resistance. Therefore, the patient will not have a spontaneous breathing trial. Labs, x-rays, and all medications are reviewed. The patient's procalcitonin level was 0.26. The patient remains on propofol at 40 mcg/kg/min. She is getting tube feedings with vital HP at 40 cc an hour, with a goal of 50. pO2 80, pCO2 of 68, and pH 7.37. Dictation was produced using [employer] software. Please excuse any grammatical, word or spelling errors. Plan dated February 08, 2024. The patient is seen today in room 254. She remains on the ventilator. Blood gases show pO2 of 69, pCO2 of 64, pH is 7.39. The patient's peak airway pressure is 35. There is a big difference with faint peak and plateau pressures suggesting increased airways resistance. Calculated airways resistance is 16 cmH2O per liter per second. The patient continues on propofol, which will be increased. We add some Dilaudid to the regimen. The patient is getting tube feedings with vital high-protein at 40 which is goal. Labs, x-rays, and all medications are reviewed. We will continue to follow make recommendations along the way. Procalcitonin level was 0.26. Prognosis is guarded. Dictation was produced using [employer] software. Please excuse any grammatical, word or spelling errors. Time with Patient: Greater than 30
[2024-02-08 12:00] LABS: Glucose,Whole Blood 127 mg/dL (70-110)
--- NOTE | 2024-02-08 13:40 | P.PN ---
Subjective Progress Note Date: 02/08/24 63 year old F with PMH of COPD smoking 2PPD presents to the ED for altered mentation and acute hypoxic respiratory failure. Her is at bedside providing history. Patient has a chronic dry cough. However, over the past 2 weeks her cough has been more productive described as glue. She was admitted at [facility] 2 days ago for COPD exacerbation and bilateral pneumonia. Patient requested to go home, and she was discharged on 4L NC, steroids and antibiotics. Since then, she has progressively worsened. She initially presented to [facility]. She was intubated and transferred to [facility] for higher level of care. Initial BP 114/69, T 96.8F, HR 87, RR 20, 100%, mechanically intubated. CBC, Coag panel, CMP significant for WBC 33.3, Na 127, Cl 91, bicarb 31, glu 164, Ca 7.5. Lactic acid 1.5. Mag 1.9. BNP 3140. CXR concerning for L PTX, bibasilar airspace opacities. Chest CT no PTX, severe emphysema, bibasilar atelectasis, right adrenal nodule, elevated L diaphragm, mild pectus excavatum. Started on Rocephin, Azithromycin, SoluMedrol, Levophed and admitted to ICU for further workup and management. Started on Rocephin Azithromycin, SoluMedrol, DuoNeb. 02/05 Patient was seen and examined. Currently on Nimbex at 2 mcg/kg/min and Propofol at 35 mcg/kg/min. Pressors include Levophed at 0.04 mcg/kg/min. Antibiotics include Rocephin and Azithromycin. CBC and BMP significant for WBC 25.2, Na 131, Cl 93, bicarb 35, glu 183, Ca 8.3. Mag 2.3. EKG shows sinus rhythm with no ST T wave changes. COVID, RSV, Flu neg. CXR with bibasilar opacities. 02/06 Patient was seen and examined. Currently on Propofol at 50 mcg/kg/min. Levophed has been weaned off. Antibiotics include Rocephin 2g IV QD and Azithromycin 500 mg IV QD. CBC and BMP significant for WBC 16.7, Na 133, bicarb 38, glu 163, Ca 8.2. Mag 2.6. Echo shows EF 55-60%. Procal is 0.26. A1c is 6.3. Sputum Cx few PMN, rare GPC and GNB. BCx neg at 24H. Troponin 0.018, 0.013. CXR remains stable to yesterdays CXR. 02/07 Patient was seen and examined. Currently on Propofol at 50 mcg/kg/min. Completed 3 days of Rocephin and Azithromycin. CBC and BMP significant for WBC 15.7, bicarb 38, BUN 20, Cr 0.51, glu 160, Ca 8.3. Mag 2.4. Sputum Cx growing respiratory ольга. BCx neg at 48H. CXR remains stable to yesterdays CXR with the addition of small left pleural effusion. General: Intubated Derm: warm, dry Head: atraumatic, normocephalic, symmetric Eyes: no lid lag, anicteric sclera Mouth: no lip lesion, mucus membranes moist Cardiovascular: S1S2 reg, no murmur Lungs: Decreased BS bilateral, no rhonchi, no rales , mechanically ventilated Abdominal: soft, non tender to palpation Ext: no gross muscle atrophy, no edema, no contractures Neuro: Unable to determine Psych: Unable to determine Based on my assessment of this patient, this patient meets a high complexity level of care. Acute metabolic encephalopathy likely due to below Acute hypoxic respiratory failure likely due to below: Echocardiogram as above. ACS ruled out. Acute COPD exacerbation: SoluMedrol 60 mg IV Q6H. DuoNeb QID scheduled and Q2H PRN for SOB/wheezing. Pulmicort 1 mg INH BID. Telemetry monitoring. Pulmonary on board. Septic shock secondary to bilateral pnuemonia: Completed 3 days of Rocephin and Azithromcyin. Procal 0.26. Legionella Ag, COVID/RSV/Flu neg. Sputum Cx respiratory ольга. BCx prelim neg. Decrease NS to 20 cc/hr. Metabolic alkalosis as compensation for respiratory acidosis Diabetes mellitus: A1c 6.3. ISS Q6H. Accuchecks ACHS. Resolved: HypoNa CODE STATUS: FULL CODE DVT Prophylaxis: Lovenox SQ GI Prophylaxis: Protonix IV Designated medical POA if patient is not able to make medical decisions for themselves: . I have reviewed the following mgmt consultant notes: Pulmonary note. I have reviewed the results of the following tests: As above. I have ordered the following tests: As above. I have discussed the care of this patient with the following independent historian: I have independently interpreted the following test below: CXR I have discussed the management of this patient with the following physician: Objective - Vital Signs Vital signs: Vital Signs Temp 99.0 F 02/08/24 12:00 Pulse 86 02/08/24 13:00 Resp 30 H 02/08/24 13:00 BP 130/67 02/08/24 13:00 Pulse Ox 96 02/08/24 13:00 FiO2 60 02/08/24 12:00 Intake & Output 02/07/24 02/08/24 02/08/24 18:59 06:59 18:59 Intake Total 2516.371 7875.919 9223.000 Output Total 950 1155 590 Balance 1566.371 822.087 491.000 Weight 86 kg 87 kg Intake: IV 1536 1236 721 Azithromycin 500 mg In 250 Sodium Chloride 0.9% 250 ml @ 250 mls/hr IVPB DAILY [facility] Rx#:[id number] Pressure Bag (0.9 Sodium 36 36 21 Chloride) Sodium Chloride 0.9% 1, 1200 1200 700 000 ml @ 100 mls/hr IV . Q10H [facility] Rx#:[id number] cefTRIAXone 2 gm In 50 Sodium Chloride 0.9% 50 ml @ 100 mls/hr IVPB Q24HR [facility] Rx#:[id number] Intake, IV Titration 380.371 171.087 100.000 Amount Cisatracurium 200 mg In 80.371 Sodium Chloride 0.9% 180 ml @ 1 MCG/KG/MIN 5.382 mls/hr IV .Q24H [facility] Rx#: [id number] propofoL 1,000 mg In 300.000 171.087 100.000 Empty Bag 1 bag @ 15 MCG/ KG/MIN 8.073 mls/hr IV . [id number] [facility] Rx#:[id number] Tube Feeding 480 480 200 Other 120 90 60 Output: Urine 950 1155 590 Other: Voiding Method Indwelling Catheter Indwelling Catheter Indwelling Catheter ABP, PAP, CO, CI - Last Documented Arterial Blood Pressure 114/88 - Labs CBC & Chem 7: 02/08/24 03:21 02/08/24 03:21 Labs: Abnormal Lab Results - Last 24 Hours (Table) 11/02/07/24 02/08/24 Range/Units 18:19 23:26 03:21 WBC 15.7 H (3.8-10.6) k/uL Neutrophils # 14.3 H (1.3-7.7) k/uL ABG pCO2 (35-45) mmHg ABG pO2 (83-108) mmHg ABG HCO3 (21-25) mmol/L ABG Total CO2 (19-24) mmol/L Carbon Dioxide (22-30) mmol/L BUN (7-17) mg/dL Creatinine (0.52-1.04) mg/dL Glucose (74-99) mg/dL POC Glucose (mg/dL) 142 H 135 H (70-110) mg/dL Calcium (8.4-10.2) mg/dL Magnesium (1.6-2.3) mg/dL 02/08/24 02/08/24 02/08/24 Range/Units 03:21 04:23 05:34 WBC (3.8-10.6) k/uL Neutrophils # (1.3-7.7) k/uL ABG pCO2 64 H (35-45) mmHg ABG pO2 69 L (83-108) mmHg ABG HCO3 39 H (21-25) mmol/L ABG Total CO2 41 H (19-24) mmol/L Carbon Dioxide 38 H (22-30) mmol/L BUN 20 H (7-17) mg/dL Creatinine 0.51 L (0.52-1.04) mg/dL Glucose 160 H (74-99) mg/dL POC Glucose (mg/dL) 165 H (70-110) mg/dL Calcium 8.3 L (8.4-10.2) mg/dL Magnesium 2.4 H (1.6-2.3) mg/dL 02/08/24 Range/Units 11:58 WBC (3.8-10.6) k/uL Neutrophils # (1.3-7.7) k/uL ABG pCO2 (35-45) mmHg ABG pO2 (83-108) mmHg ABG HCO3 (21-25) mmol/L ABG Total CO2 (19-24) mmol/L Carbon Dioxide (22-30) mmol/L BUN (7-17) mg/dL Creatinine (0.52-1.04) mg/dL Glucose (74-99) mg/dL POC Glucose (mg/dL) 127 H (70-110) mg/dL Calcium (8.4-10.2) mg/dL Magnesium (1.6-2.3) mg/dL Microbiology - Last 24 Hours (Table) 02/06/24 03:47 Gram Stain - Final Sputum Sputum Culture - Final 02/05/24 20:04 Blood Culture - Preliminary Blood 02/05/24 19:52 Blood Culture - Preliminary Blood
[2024-02-08 17:40] LABS: Glucose,Whole Blood 145 mg/dL (70-110)
[2024-02-08] MEDS: HYDROmorphone 0.5 MG/0.5 ML SYRINGE IVP PRN (18:16)
[2024-02-08 22:55] LABS: Glucose,Whole Blood 155 mg/dL (70-110)
[2024-02-08 23:31] LABS: Glucose,Whole Blood 144 mg/dL (70-110)
[2024-02-09 04:03] LABS: ABG Oxygen Saturation 94.7 % (94-97); ABG PCO2 64 mmHg (35-45); ABG PH 7.41 (7.35-7.45); ABG PO2 70 mmHg (83-108); ABG TCO2 43 mmol/L (19-24); Allen Test Performed? Yes
[2024-02-09 04:05] LABS: ABG HCO3 41 mmol/L (21-25)
[2024-02-09 04:11] LABS: HCT 39.5 % (34.0-46.0); HGB 12.3 gm/dL (11.4-16.0); Hypochromasia Slight; MCH 30.1 pg (25.0-35.0); Mean Platelet Volume 7.6; Platelet Count 227 k/uL (150-450); RBC 4.07 m/uL (3.80-5.40); RDW 13.6 % (11.5-15.5); WBC 17.5 k/uL (3.8-10.6)
[2024-02-09 04:19] LABS: African American GFR (CKD) >90 (>60 ml/min/1.73 sqM); Blood Urea Nitrogen 26 mg/dL (7-17); Calcium 8.7 mg/dL (8.4-10.2); Chloride 103 mmol/L (98-107); Glucose 174 mg/dL (74-99); Non-African American GFR(CKD) >90 (>60 ml/min/1.73 sqM); Potassium 4.4 mmol/L (3.5-5.1); Sodium 140 mmol/L (137-145)
[2024-02-09 04:31] LABS: Anion Gap 3 mmol/L
[2024-02-09 04:39] LABS: Carbon Dioxide 34 mmol/L (22-30)
[2024-02-09 05:35] LABS: Glucose,Whole Blood 148 mg/dL (70-110)
--- NOTE | 2024-02-09 06:39 | XR ---
EXAMINATION TYPE: XR chest 1V portable DATE OF EXAM: 02/09/2024 COMPARISON: 02/08/2024 HISTORY: Difficulty breathing on ventilation TECHNIQUE: Single frontal view of the chest is obtained. FINDINGS: There is a right jugular central venous catheter the tip of which is in the SVC/RA junction. There is an ET tube 5.2 cm above the piero. There is an NG tube within the stomach. The bibasilar opacities are unchanged. There is lucency in the upper lobes consistent with COPD. There is no pneumothorax. The heart size is normal. The osseous structures are intact IMPRESSION: No change in the acute cardiopulmonary disease. ET tube is 5.2 cm above the piero. [facility], , 02/09/2024 6:36 AM
[2024-02-09] MEDS: FUROSEMIDE 10 MG/ML 4 ML VIAL IV STA (09:20)
--- NOTE | 2024-02-09 10:08 | P.PN ---
Subjective Progress Note Date: 02/09/24 Principal diagnosis: Respiratory failure. Pulmonary consult dated February 05, 2024. This is a 63-year-old female who was transferred down from [facility]. She apparently was at [facility] yesterday, diagnosed as having pneumonia, given Omnicef 300 twice a day, discharged from the emergency department. She apparently came back today, with worsened respiratory distress, and ended up requiring intubation, and mechanical ventilation, and was shipped down to [facility]. I saw her in the emergency department, trauma room 2. She is on the mechanical ventilator. The respiratory therapist switch her from volume assist-control, because of high airway pressures to pressure assist control. Her inspiratory pressure or Pi is 20 cm of water. Her inspiratory time or Ti is 0.7 seconds. The patient is receiving 100% oxygen, with a PEEP of 5, and a rate of 14 breaths/min. She was given Rocephin and vancomycin at the outside hospital. She is currently on propofol at 10 mcg/kg/min, norepinephrine at 0.05 mcg/kg/min. She is not currently receiving any IV fluids. Current labs include a white count 33.3, hemoglobin hematocrit and platelet count all normal. Sodium 127, potassium 4, chlorides 91, CO2 31, glucose 164. Calcium 7.5. N- terminal proBNP 3140. Chest x-ray may show some bibasilar atelectasis or infiltrates. There may be concern for a small left apical pneumothorax. A CT scan was ordered. Progress note dated February 06, 2024. This is a 63-year-old female seen today in room 254. The patient remains on volume assist-control, rate 30, tidal volume 350, FiO2 70%, PEEP of 8. Blood gases show pO2 76, pCO2 65, pH is 7.39. The patient is on saline at 100 cc an hour, norepinephrine at 2 mcg/min, propofol at 35 mcg/kg/min and Nimbex at 1 mcg/kg/min, with [id number] monitoring. The patient has a history of COPD, ongoing tobacco use, lymphoma, and pneumonia. Today, an arterial line will be placed. Will start tube feedings. In addition, the patient will be started on budesonide, and formoterol, usual doses. White count 25.2, hemoglobin 14.5, hematocrit 44.2, platelet count normal. Sodium 131, potassium 4, chloride 93, CO2 35, BUN 13, creatinine 0.52. Troponins were 0.018, and 0.013. Glucose is 177. Chest x-ray shows bibasilar opacities, potentially consistent with pneumonia. Patient continues on Rocephin and azithromycin for possible community-acquired pneumonia. Progress note dated February 07, 2024. 63-year-old female seen in room 254. The patient continues on the mechanical ventilator. She is on volume assist-control, rate 30, tidal line 350, FiO2 60%, PEEP of 8. Blood gases show pO2 of 80, pCO2 of 68, pH is 7.37. The patient still has a high peak airway pressure relative to the plateau pressure, and she still quite bronchospastic. Likely not ready to wean. The patient is on propofol at 40 mcg/kg/min, saline at 100 cc an hour, and vital HP at 40 cc an hour, with a goal of 50. We will attempt a daily interruption of sedation today. The patient's procalcitonin level was 0.26. After 3 days of azithromycin, and Rocephin, antibiotics will be discontinued. White count of 16.7, hemoglobin hematocrit and platelet count all normal. Sodium 133, potassium 3.6, chlorides 99, CO2 38, BUN 17, creatinine 0.60. Glucose is 126. Magnesium 2.6. Cultures are thus far negative. Chest x-ray shows bilateral diffuse and patchy infiltrates. Progress note dated February 08, 2024. 63-year-old female seen today in room 254. She remains on mechanical ventilator. She is on volume assist-control, rate 30, tidal line 350, FiO2 60%, PEEP of 8. Blood gases show pO2 of 69, pCO2 of 64, pH is 7.39. The patient still has a very large difference between peak airway pressure and plateau pressure. Calculated airways resistance is 16 cmH2O per liter per second. The patient is currently on propofol at 40 mcg/kg/min, saline at 100 cc an hour, and vital high-protein at 40, which is goal. Today we add some Dilaudid. The patient will not have a spontaneous breathing trial today. White count 15.7, hemoglobin 12.2, hematocrit 38.3, platelet count normal. Sodium 139, potassium 4.3, chlorides 103, CO2 38, BUN 20, creatinine 0.51. Magnesium is 2.4. Calcium 8.3. Cultures are currently negative. Chest x-ray shows an endotracheal tube that needs to be placed on a couple centimeters, and a left pleural effusion. Note dated February 09, 2024. 63-year-old female seen again in room 254. She remains on the ventilator. Settings are volume assist-control, rate of 30, tidal volume 350, FiO2 60%, PEEP of 8. Arterial blood gases show pO2 of 70, pCO2 of 64, pH of 7.41. Patient's peak airway pressure is 36 cm of water. The Plateau pressures 20 cm of water. The patient continues on propofol at 50 mcg/kg/min, saline at 20 cc an hour, and vital high-protein at 40, which is goal. The patient will get 1 dose of Lasix, 40 mg IV push. Current labs with a white count 17.5, with normal hemoglobin hematocrit and platelet count. Sodium 140, potassium 4.4, chlorides 103, CO2 34, BUN 26, creatinine 0.53. Glucose is 148. Patient's chest x-ray reveals bibasilar opacities. Objective - Vital Signs Vital signs: Vital Signs Temp 98.9 F 02/09/24 08:00 Pulse 92 02/09/24 09:12 Resp 30 H 02/09/24 09:00 BP 149/74 02/09/24 09:00 Pulse Ox 94 L 02/09/24 09:00 FiO2 60 02/09/24 08:31 Intake & Output 02/08/24 02/09/24 02/09/24 18:59 06:59 18:59 Intake Total 4108.247 3880.081 161.391 Output Total 1015 1160 250 Balance 671.297 16.081 -88.609 Weight 89.1 kg Intake: IV 916 276 69 Pressure Bag (0.9 Sodium 36 36 9 Chloride) Sodium Chloride 0.9% 1, 880 240 60 000 ml @ 20 mls/hr IV . Q24H [facility] Rx#:[id number] Intake, IV Titration 280.297 330.081 92.391 Amount propofoL 1,000 mg In 280.297 330.081 92.391 Empty Bag 1 bag @ 15 MCG/ KG/MIN 8.073 mls/hr IV . [id number] [facility] Rx#:[id number] Tube Feeding 400 480 Other 90 90 Output: Urine 1015 1160 250 Other: Voiding Method Indwelling Catheter Indwelling Catheter ABP, PAP, CO, CI - Last Documented Arterial Blood Pressure 143/78 - Exam No acute distress, sedated with propofol, with an orally placed endotracheal tube. HEENT examination is grossly unremarkable. Neck supple. Full range of motion. No adenopathy thyromegaly or neck vein distention. Cardiovascular examination reveals regular rhythm rate. S1-S2 normal. No S3 or S4. No discernible murmur noted. Heart sounds are distant. Lungs reveal very diminished breath sounds. There is expiratory rhonchi and wheezes. Breath sounds are equal but diminished. No crackles. Abdomen is soft, without bowel sounds. No obvious masses. Extremities are intact. No cyanosis clubbing or edema. Skin is without rash or lesion. Neurologic examination cannot be assessed at this time. - Labs CBC & Chem 7: 02/09/24 04:00 02/09/24 04:00 Labs: Abnormal Lab Results - Last 24 Hours (Table) 02/08/24 02/08/24 02/08/24 Range/Units 11:58 17:39 22:53 WBC (3.8-10.6) k/uL ABG pCO2 (35-45) mmHg ABG pO2 (83-108) mmHg ABG HCO3 (21-25) mmol/L ABG Total CO2 (19-24) mmol/L Carbon Dioxide (22-30) mmol/L BUN (7-17) mg/dL Glucose (74-99) mg/dL POC Glucose (mg/dL) 127 H 145 H 155 H (70-110) mg/dL 02/08/24 02/09/24 02/09/24 Range/Units 23:30 04:00 04:00 WBC 17.5 H (3.8-10.6) k/uL ABG pCO2 (35-45) mmHg ABG pO2 (83-108) mmHg ABG HCO3 (21-25) mmol/L ABG Total CO2 (19-24) mmol/L Carbon Dioxide 34 H (22-30) mmol/L BUN 26 H (7-17) mg/dL Glucose 174 H (74-99) mg/dL POC Glucose (mg/dL) 144 H (70-110) mg/dL 02/09/24 02/09/24 Range/Units 04:02 05:34 WBC (3.8-10.6) k/uL ABG pCO2 64 H (35-45) mmHg ABG pO2 70 L (83-108) mmHg ABG HCO3 41 H* (21-25) mmol/L ABG Total CO2 43 H (19-24) mmol/L Carbon Dioxide (22-30) mmol/L BUN (7-17) mg/dL Glucose (74-99) mg/dL POC Glucose (mg/dL) 148 H (70-110) mg/dL Microbiology - Last 24 Hours (Table) 02/05/24 20:04 Blood Culture - Preliminary Blood 02/05/24 19:52 Blood Culture - Preliminary Blood 02/06/24 03:47 Gram Stain - Final Sputum Sputum Culture - Final Assessment and Plan Assessment: Acute hypoxemic respiratory failure requiring intubation and mechanical ventilation, February 05, 2024. Possible bibasilar pneumonia. Possible left apical pneumothorax, not seen on CT scan. Hypotension, likely related to either volume depletion, positive pressure ventilation and/or sepsis. History of COPD from previous heavy tobacco use. History of lymphoma. History of pneumonia. Plan: Plan dated February 05, 2024. Not much is known about this patient at this time. She apparently was in the [facility] ER yesterday and was diagnosed as having pneumonia, given Omnicef and sent home. Subsequent to that, she came back into the ER today, with worsening respiratory distress, required intubation and mechanical ventilation. The patient was seen in the emergency room, trauma room 2. She is currently on the mechanical ventilator. She was switched from volume assist-control, to pressure assist control. She is currently on propofol for sedation, and a small dose of norepinephrine at 0.05 mcg/kg/min. Labs, have been ordered. I have asked for a CT scan of the chest, to see whether or not there is a left apical pneumothorax. Additional recommendations and suggestions are forthcoming. Plan dated February 06, 2024. The patient is seen in room 254. The patient is currently on the ventilator, with pO2 of 76, pCO2 of 65, pH is 7.39. The patient is getting saline at 100 cc an hour, norepinephrine at 2 mcg/min, propofol at 35 mcg/kg/min, and Nimbex at 1 mcg/kg/min with [id number] monitoring. The patient has a history of COPD from tobacco use, lymphoma, and pneumonia. We add budesonide formoterol, twice a day, and restart tube feeds. In addition, an arterial line is placed. I did have a chance to speak to the family. I spoke to her brother and her . I gave them an update. There is no apical pneumothorax seen on CT scan. We will continue to follow make recommendations where appropriate. Overall prognosis remains guarded. The patient has significant airways resistance. The peak airway pressure was 35 cm of water. The Plateau pressure was 19 cm of water. Airways resistance was 16 cm of water per liter per second. Static lung compliance was also low at 31.8 mL/cm water and dynamic lung compliance was low at 13 mL/cm water. Plan dated February 07, 2024. The patient will get 1 more day of antibiotics, and then afterwards, will be discontinued. Her procalcitonin level is 0.26, which is in the normal range. The patient's peak airway pressure is quite high compared to her plateau pressure. That would suggest that she still quite bronchospastic, with increased airways resistance. Therefore, the patient will not have a spontaneous breathing trial. Labs, x-rays, and all medications are reviewed. The patient's procalcitonin level was 0.26. The patient remains on propofol at 40 mcg/kg/min. She is getting tube feedings with vital HP at 40 cc an hour, with a goal of 50. pO2 80, pCO2 of 68, and pH 7.37. Dictation was produced u [employer] dictation software. Please excuse any grammatical, word or spelling errors. Plan dated February 08, 2024. The patient is seen today in room 254. She remains on the ventilator. Blood g ases show pO2 of 69, pCO2 of 64, pH is 7.39. The patient's peak airway pressure is 35. There is a big difference with faint peak and plateau pressures suggesting increased airways resistance. Calculated airways resistance is 16 cmH2O per liter per second. The patient continues on propofol, which will be increased. We add some Dilaudid to the regimen. The patient is getting tube feedings with vital high-protein at 40 which is goal. Labs, x-rays, and all medications are reviewed. We will continue to follow make recommendations along the way. Procalcitonin level was 0.26. Prognosis is guarded. Dictation was produced using [employer] dictation software. Please excuse any grammatical, word or spelling errors. Plan dated February 09, 2024. The patient is seen again in room 254. The patient continues to be quite bronchospastic. Because of pressures 36 with a plateau pressure of 20. Airways resistance is 16 cmH2O per liter per second. Currently, the patient is on propofol at 50 mcg/kg/min, saline at 20 cc an hour, and tube feedings with vital HP, at 40 cc an hour, which is goal. The patient will get 1 dose of Lasix today, 40 mg IV push. Labs, x-rays, medications are reviewed. We will continue to follow and make recommendations along the way. Prognosis is guarded. The p atient is not quite ready to wean as yet. Time with Patient: Greater than 30
[2024-02-09 11:31] LABS: Glucose,Whole Blood 148 mg/dL (70-110)
--- NOTE | 2024-02-09 14:50 | P.PN ---
Subjective Progress Note Date: 02/09/24 63 year old F with PMH of COPD smoking 2PPD presents to the ED for altered mentation and acute hypoxic respiratory failure. Her is at bedside providing history. Patient has a chronic dry cough. However, over the past 2 weeks her cough has been more productive described as glue. She was admitted at [facility] 2 days ago for COPD exacerbation and bilateral pneumonia. Patient requested to go home, and she was discharged on 4L NC, steroids and antibiotics. Since then, she has progressively worsened. She initially presented to [facility]. She was intubated and transferred to [facility] for higher level of care. Initial BP 114/69, T 96.8F, HR 87, RR 20, 100%, mechanically intubated. CBC, Coag panel, CMP significant for WBC 33.3, Na 127, Cl 91, bicarb 31, glu 164, Ca 7.5. Lactic acid 1.5. Mag 1.9. BNP 3140. CXR concerning for L PTX, bibasilar airspace opacities. Chest CT no PTX, severe emphysema, bibasilar atelectasis, right adrenal nodule, elevated L diaphragm, mild pectus excavatum. Started on Rocephin, Azithromycin, SoluMedrol, Levophed and admitted to ICU for further workup and management. Started on Rocephin Azithromycin, SoluMedrol, DuoNeb. 02/05 Patient was seen and examined. Currently on Nimbex at 2 mcg/kg/min and Propofol at 35 mcg/kg/min. Pressors include Levophed at 0.04 mcg/kg/min. Antibiotics include Rocephin and Azithromycin. CBC and BMP significant for WBC 25.2, Na 131, Cl 93, bicarb 35, glu 183, Ca 8.3. Mag 2.3. EKG shows sinus rhythm with no ST T wave changes. COVID, RSV, Flu neg. CXR with bibasilar opacities. 02/06 Patient was seen and examined. Currently on Propofol at 50 mcg/kg/min. Levophed has been weaned off. Antibiotics include Rocephin 2g IV QD and Azithromycin 500 mg IV QD. CBC and BMP significant for WBC 16.7, Na 133, bicarb 38, glu 163, Ca 8.2. Mag 2.6. Echo shows EF 55-60%. Procal is 0.26. A1c is 6.3. Sputum Cx few PMN, rare GPC and GNB. BCx neg at 24H. Troponin 0.018, 0.013. CXR remains stable to yesterdays CXR. 02/07 Patient was seen and examined. Currently on Propofol at 50 mcg/kg/min. Completed 3 days of Rocephin and Azithromycin. CBC and BMP significant for WBC 15.7, bicarb 38, BUN 20, Cr 0.51, glu 160, Ca 8.3. Mag 2.4. Sputum Cx growing respiratory ольга. BCx neg at 48H. CXR remains stable to yesterdays CXR with the addition of small left pleural effusion. 02/08 Patient was seen and examined. Currently on Propofol at 50 mcg/kg/min. CBC and BMP significant for WBC 17.5, bicarb 34, BUN 26, glu 174. BCx neg at 72H. CXR done today shows bibasilar opacities. General: Intubated Derm: warm, dry Head: atraumatic, normocephalic, symmetric Eyes: no lid lag, anicteric sclera Mouth: no lip lesion, mucus membranes moist Cardiovascular: S1S2 reg, no murmur Lungs: Decreased BS bilateral, no rhonchi, no rales , mechanically ventilated Abdominal: soft, non tender to palpation Ext: no gross muscle atrophy, no edema, no contractures Neuro: Unable to determine Psych: Unable to determine Based on my assessment of this patient, this patient meets a high complexity level of care. Acute metabolic encephalopathy likely due to below Acute hypoxic respiratory failure likely due to below: Echocardiogram as above. ACS ruled out. Acute COPD exacerbation: SoluMedrol 60 mg IV Q6H. DuoNeb QID scheduled and Q2H PRN for SOB/wheezing. Pulmicort 1 mg INH BID. Telemetry monitoring. Pulmonary on board. Septic shock secondary to bilateral pnuemonia: Completed 3 days of Rocephin and Azithromcyin. Procal 0.26. Legionella Ag, COVID/RSV/Flu neg. Sputum Cx respiratory ольга. BCx prelim neg. Decrease NS to 20 cc/hr. Metabolic alkalosis as compensation for respiratory acidosis Diabetes mellitus: A1c 6.3. ISS Q6H. Accuchecks ACHS. Resolved: HypoNa Patient is pending clinical improvement. Not yet ready for extubation. CODE STATUS: FULL CODE DVT Prophylaxis: Lovenox SQ GI Prophylaxis: Protonix IV Designated medical POA if patient is not able to make medical decisions for themselves: . I have reviewed the following eyewear consultant notes: Pulmonary note. I have reviewed the results of the following tests: CBC, BMP, BCx. I have ordered the following tests: I have discussed the care of this patient with the following independent historian: RN, Family I have independently interpreted the following test below: CXR I have discussed the management of this patient with the following physician: Objective - Vital Signs Vital signs: Vital Signs Temp 98.0 F 02/09/24 12:00 Pulse 91 02/09/24 14:00 Resp 30 H 02/09/24 14:00 BP 160/86 02/09/24 14:00 Pulse Ox 93 L 02/09/24 14:00 FiO2 60 02/09/24 12:00 Intake & Output 02/08/24 02/09/24 02/09/24 18:59 06:59 18:59 Intake Total 2785.326 8370.081 593.400 Output Total 1015 1160 3575 Balance 671.297 16.081 -2981.600 Weight 89.1 kg Intake: IV 916 276 184 Pressure Bag (0.9 Sodium 36 36 24 Chloride) Sodium Chloride 0.9% 1, 880 240 160 000 ml @ 20 mls/hr IV . Q24H [facility] Rx#:[id number] Intake, IV Titration 280.297 330.081 179.400 Amount propofoL 1,000 mg In 280.297 330.081 179.400 Empty Bag 1 bag @ 15 MCG/ KG/MIN 8.073 mls/hr IV . [id number] [facility] Rx#:[id number] Tube Feeding 400 480 200 Other 90 90 30 Output: Urine 1015 1160 3575 Other: Voiding Method Indwelling Catheter Indwelling Catheter Indwelling Catheter ABP, PAP, CO, CI - Last Documented Arterial Blood Pressure 143/78 - Labs CBC & Chem 7: 02/09/24 04:00 02/09/24 04:00 Labs: Abnormal Lab Results - Last 24 Hours (Table) 02/08/24 02/08/24 02/08/24 Range/Units 17:39 22:53 23:30 WBC (3.8-10.6) k/uL ABG pCO2 (35-45) mmHg ABG pO2 (83-108) mmHg ABG HCO3 (21-25) mmol/L ABG Total CO2 (19-24) mmol/L Carbon Dioxide (22-30) mmol/L BUN (7-17) mg/dL Glucose (74-99) mg/dL POC Glucose (mg/dL) 145 H 155 H 144 H (70-110) mg/dL 02/09/24 02/09/24 02/09/24 Range/Units 04:00 04:00 04:02 WBC 17.5 H (3.8-10.6) k/uL ABG pCO2 64 H (35-45) mmHg ABG pO2 70 L (83-108) mmHg ABG HCO3 41 H* (21-25) mmol/L ABG Total CO2 43 H (19-24) mmol/L Carbon Dioxide 34 H (22-30) mmol/L BUN 26 H (7-17) mg/dL Glucose 174 H (74-99) mg/dL POC Glucose (mg/dL) (70-110) mg/dL 02/09/24 02/09/24 Range/Units 05:34 11:29 WBC (3.8-10.6) k/uL ABG pCO2 (35-45) mmHg ABG pO2 (83-108) mmHg ABG HCO3 (21-25) mmol/L ABG Total CO2 (19-24) mmol/L Carbon Dioxide (22-30) mmol/L BUN (7-17) mg/dL Glucose (74-99) mg/dL POC Glucose (mg/dL) 148 H 148 H (70-110) mg/dL Microbiology - Last 24 Hours (Table) 02/05/24 20:04 Blood Culture - Preliminary Blood 02/05/24 19:52 Blood Culture - Preliminary Blood
[2024-02-09 17:17] LABS: Glucose,Whole Blood 150 mg/dL (70-110)
[2024-02-09 23:29] LABS: Glucose,Whole Blood 170 mg/dL (70-110)
[2024-02-10 05:16] LABS: ABG Oxygen Saturation 90.9 % (94-97); ABG PCO2 66 mmHg (35-45); ABG PH 7.45 (7.35-7.45); ABG TCO2 48 mmol/L (19-24); Allen Test Performed? Yes
[2024-02-10 05:19] LABS: ABG HCO3 46 mmol/L (21-25); ABG PO2 58 mmHg (83-108)
[2024-02-10 05:50] LABS: Glucose,Whole Blood 154 mg/dL (70-110)
[2024-02-10 06:09] LABS: Basophils % (A) 0 %; Eosinophils # (A) 0.1 k/uL (0-0.7); Eosinophils % (A) 1 %; HCT 40.7 % (34.0-46.0); Hypochromasia Slight; Lymphocytes # (A) 1.3 k/uL (1.0-4.8); Lymphocytes % (A) 10 %; MCH 31.2 pg (25.0-35.0); MCHC 32.1 g/dL (31.0-37.0); MCV 97.4 fL (80.0-100.0); Mean Platelet Volume 7.7; Monocytes # (A) 0.4 k/uL (0-1.0); Monocytes % (A) 3 %; Neutrophils # (A) 11.7 k/uL (1.3-7.7); Neutrophils % (A) 86 %; Platelet Count 206 k/uL (150-450); RBC 4.18 m/uL (3.80-5.40); RDW 13.6 % (11.5-15.5); WBC 13.6 k/uL (3.8-10.6)
[2024-02-10 06:20] LABS: African American GFR (CKD) >90 (>60 ml/min/1.73 sqM); Blood Urea Nitrogen 33 mg/dL (7-17); Calcium 8.7 mg/dL (8.4-10.2); Chloride 97 mmol/L (98-107); Glucose 156 mg/dL (74-99); Non-African American GFR(CKD) >90 (>60 ml/min/1.73 sqM); Potassium 4.4 mmol/L (3.5-5.1); Sodium 140 mmol/L (137-145)
[2024-02-10 06:26] LABS: Anion Gap 6 mmol/L; Carbon Dioxide 37 mmol/L (22-30)
--- NOTE | 2024-02-10 07:33 | XR ---
EXAMINATION TYPE: XR chest 1V portable DATE OF EXAM: 02/10/2024 COMPARISON: 02/09/2024 CLINICAL INDICATION: Female, 63 years old with history of mechanical ventilation; , TECHNIQUE: XR chest 1V portable views of the chest. FINDINGS: Central line, ET tube and NG tube stable. Bullous emphysematous changes involving the lung apices. Bi lateral consolidation and small effusion. Heart size stable. Degenerative changes of the spine. IMPRESSION: 1. Bilateral infiltrate and small effusion stable. [facility], , 02/10/2024 7:31 AM
[2024-02-10] MEDS: hydrALAZINE HCL 20 MG/ML 1 ML VIAL IVP PRN (08:51)
--- NOTE | 2024-02-10 08:51 | P.PN ---
Subjective Progress Note Date: 02/10/24 Principal diagnosis: 63 year old F with PMH of COPD smoking 2PPD presents to the ED for altered mentation and acute hypoxic respiratory failure. Her is at bedside providing history. Patient has a chronic dry cough. However, over the past 2 weeks her cough has been more productive described as glue. She was admitted at [place] 2 days ago for COPD exacerbation and bilateral pneumonia. Patient requested to go home, and she was discharged on 4L NC, steroids and antibiotics. Since then, she has progressively worsened. She initially presented to [facility]. She was intubated and transferred to [facility] for higher level of care. Initial BP 114/69, T 96.8F, HR 87, RR 20, 100%, mechanically intubated. CBC, Coag panel, CMP significant for WBC 33.3, Na 127, Cl 91, bicarb 31, glu 164, Ca 7.5. Lactic acid 1.5. Mag 1.9. BNP 3140. CXR concerning for L PTX, bib asilar airspace opacities. Chest CT no PTX, severe emphysema, bibasilar atelectasis, right adrenal nodule, elevated L diaphragm, mild pectus excavatum. Started on Rocephin, Azithromycin, SoluMedrol, Levophed and admitted to ICU for further workup and management. 02/05 Patient was seen and examined. Currently on Nimbex at 2 mcg/kg/min and Propofol at 35 mcg/kg/min. Pressors include Levophed at 0.04 mcg/kg/min. Antibiotics include Rocephin and Azithromycin. CBC and BMP significant for WBC 25.2, Na 131, Cl 93, bicarb 35, glu 183, Ca 8.3. Mag 2.3. EKG shows sinus rhythm with no ST T wave changes. COVID, RSV, Flu neg. CXR with bibasilar opacities. 02/06 Patient was seen and examined. Currently on Propofol at 50 mcg/kg/min. Levophed has been weaned off. Antibiotics include Rocephin 2g IV QD and Azithromycin 500 mg IV QD. CBC and BMP significant for WBC 16.7, Na 133, bicarb 38, glu 163, Ca 8.2. Mag 2.6. Echo shows EF 55-60%. Procal is 0.26. A1c is 6.3. Sputum Cx few PMN, rare GPC and GNB. BCx neg at 24H. Troponin 0.018, 0.013. CXR remains stable to yesterdays CXR. 02/07 Patient was seen and examined. Currently on Propofol at 50 mcg/kg/min. Completed 3 days of Rocephin and Azithromycin. CBC and BMP significant for WBC 15.7, bicarb 38, BUN 20, Cr 0.51, glu 160, Ca 8.3. Mag 2.4. Sputum Cx growing respiratory ольга. BCx neg at 48H. CXR remains stable to yesterdays CXR with the addition of small left pleural effusion. 02/08 Patient was seen and examined. Currently on Propofol at 50 mcg/kg/min. CBC and BMP significant for WBC 17.5, bicarb 34, BUN 26, glu 174. BCx neg at 72H. CXR done today shows bibasilar opacities. 02/09: Remains intubated on fio2 60% with peep of 10. Remains sedated on propofol and on enteral feeding. ABG this am showing pH of 7.45 with a pco2 of 66,. Objective - Vital Signs Vital signs: Vital Signs Temp 99.2 F 02/10/24 04:00 Pulse 74 02/10/24 08:15 Resp 30 H 02/10/24 07:00 BP 142/80 02/10/24 07:00 Pulse Ox 93 L 02/10/24 07:00 FiO2 60 02/10/24 08:17 Intake & Output 02/09/24 02/10/24 02/10/24 18:59 06:59 18:59 Intake Total 083.164 6535.361 256 Output Total 3900 1260 225 Balance -2924.600 -73.639 31 Weight 85 kg Intake: IV 276 276 46 Pressure Bag (0.9 Sodium 36 36 6 Chloride) Sodium Chloride 0.9% 1, 240 240 40 000 ml @ 20 mls/hr IV . Q24H EL[facility]ETH Rx#:[id number] Intake, IV Titration 279.400 310.361 100 Amount propofoL 1,000 mg In 279.400 310.361 100 Empty Bag 1 bag @ 15 MCG/ KG/MIN 8.073 mls/hr IV . [id number] ELIZ[facility]ETH Rx#:[id number] Tube Feeding 360 480 80 Other 60 120 30 Output: Urine 3900 1260 225 Other: Voiding Method Indwelling Catheter Indwelling Catheter ABP, PAP, CO, CI - Last Documented Arterial Blood Pressure 143/78 - Exam General: Intubated, female, appears stated age. R ij Cvcc Derm: warm, dry Head: atraumatic, normocephalic, symmetric Eyes: no lid lag, anicteric sclera Mouth: no lip lesion, mucus membranes moist Cardiovascular: S1S2 reg, no murmur Lungs: Decreased BS bilateral, no rhonchi, no rales on mechanical ventilation Abdominal: soft, non tender to palpation Ext: no gross muscle atrophy, no edema, no contractures Neuro: Unable to determine as sedated Psych: Unable to determine as sedated - Labs CBC & Chem 7: 02/10/24 05:24 02/10/24 05:24 Labs: Abnormal Lab Results - Last 24 Hours (Table) 02/09/24 02/09/24 02/09/24 Range/Units 11:29 17:16 23:28 WBC (3.8-10.6) k/uL Neutrophils # (1.3-7.7) k/uL ABG pCO2 (35-45) mmHg ABG pO2 (83-108) mmHg ABG HCO3 (21-25) mmol/L ABG Total CO2 (19-24) mmol/L ABG O2 Saturation (94-97) % Chloride (98-107) mmol/L Carbon Dioxide (22-30) mmol/L BUN (7-17) mg/dL Creatinine (0.52-1.04) mg/dL Glucose (74-99) mg/dL POC Glucose (mg/dL) 148 H 150 H 170 H (70-110) mg/dL 02/10/24 02/10/24 02/10/24 Range/Units 04:38 05:24 05:24 WBC 13.6 H (3.8-10.6) k/uL Neutrophils # 11.7 H (1.3-7.7) k/uL ABG pCO2 66 H (35-45) mmHg ABG pO2 58 L* (83-108) mmHg ABG HCO3 46 H* (21-25) mmol/L ABG Total CO2 48 H (19-24) mmol/L ABG O2 Saturation 90.9 L (94-97) % Chloride 97 L (98-107) mmol/L Carbon Dioxide 37 H (22-30) mmol/L BUN 33 H (7-17) mg/dL Creatinine 0.51 L (0.52-1.04) mg/dL Glucose 156 H (74-99) mg/dL POC Glucose (mg/dL) (70-110) mg/dL 02/10/24 Range/Units 05:49 WBC (3.8-10.6) k/uL Neutrophils # (1.3-7.7) k/uL ABG pCO2 (35-45) mmHg ABG pO2 (83-108) mmHg ABG HCO3 (21-25) mmol/L ABG Total CO2 (19-24) mmol/L ABG O2 Saturation (94-97) % Chloride (98-107) mmol/L Carbon Dioxide (22-30) mmol/L BUN (7-17) mg/dL Creatinine (0.52-1.04) mg/dL Glucose (74-99) mg/dL POC Glucose (mg/dL) 154 H (70-110) mg/dL Microbiology - Last 24 Hours (Table) 02/05/24 20:04 Blood Culture - Preliminary Blood 02/05/24 19:52 Blood Culture - Preliminary Blood Assessment and Plan Assessment: Acute metabolic encephalopathy likely due to below Acute hypoxic respiratory failure likely due to below: ACS has been ruled out. Acute COPD exacerbation: SoluMedrol 60 mg IV Q6H. DuoNeb QID scheduled and Q2H PRN for SOB/wheezing. Pulmicort 1 mg INH BID. Telemetry monitoring. Pulmonary on board. Vent day 6, on fio2 60% with peep of 10. Septic shock secondary to bilateral pnuemonia: Completed 3 days of Rocephin and Azithromcyin. Procal 0.26. Legionella Ag, COVID/RSV/Flu neg. Sputum Cx respiratory ольга. BCx prelim neg. IVF to KVO Metabolic alkalosis as compensation for respiratory acidosis Diabetes mellitus: A1c 6.3. ISS Q6H. Accuchecks q6hr. Continue enteral feeding at 40 cc/hr. Hypona: resolved CODE STATUS: FULL CODE DVT Prophylaxis: Lovenox SQ GI Prophylaxis: Protonix IV Designated medical POA if patient is not able to make medical decisions for themselves: . I have reviewed the following customs consultant notes: Pulmonary note. I have reviewed the results of the following tests: CBC, BMP, ABG I have ordered the following tests: I have discussed the care of this patient with the following independent historian: I have independently interpreted the following test below: CXR I have discussed the management of this patient with the following physician: Time with Patient: Greater than 30
[2024-02-10 11:16] LABS: Glucose,Whole Blood 154 mg/dL (70-110)
[2024-02-10 12:01] LABS: ABG PH 7.54 (7.35-7.45); Allen Test Performed? Yes
[2024-02-10 12:02] LABS: ABG HCO3 43 mmol/L (21-25); ABG PCO2 50 mmHg (35-45); ABG PO2 66 mmHg (83-108); ABG TCO2 45 mmol/L (19-24)
--- NOTE | 2024-02-10 14:44 | P.PN ---
Subjective Progress Note Date: 02/10/24 This is a 63-year-old female who was transferred down from [facility]. She apparently was at [place] yesterday, diagnosed as having pneumonia, given Omnicef 300 twice a day, discharged from the emergency department. She apparently came back today, with worsened respiratory distress, and ended up requiring intubation, and mechanical ventilation, and was shipped down to [facility]. I saw her in the emergency department, trauma room 2. She is on the mechanical ventilator. The respiratory therapist switch her from volume assist-control, because of high airway pressures to pressure assist control. Her inspiratory pressure or Pi is 20 cm of water. Her inspiratory time or Ti is 0.7 seconds. The patient is receiving 100% oxygen, with a PEEP of 5, and a rate of 14 breaths/min. She was given Rocephin and vancomycin at the outside hospital. She is currently on propofol at 10 mcg/kg/min, norepinephrine at 0.05 mcg/kg/min. She is not currently receiving any IV fluids. Current labs include a white count 33.3, hemoglobin hematocrit and platelet count all normal. Sodium 127, potassium 4, chlorides 91, CO2 31, glucose 164. Calcium 7.5. N- terminal proBNP 3140. Chest x-ray may show some bibasilar atelectasis or infiltrates. There may be concern for a small left apical pneumothorax. A CT scan was ordered. Progress note dated February 06, 2024. This is a 63-year-old female seen today in room 254. The patient remains on volume assist-control, rate 30, tidal volume 350, FiO2 70%, PEEP of 8. Blood gases show pO2 76, pCO2 65, pH is 7.39. The patient is on saline at 100 cc an hour, norepinephrine at 2 mcg/min, propofol at 35 mcg/kg/min and Nimbex at 1 mcg /kg/min, with [id number] monitoring. The patient has a history of COPD, ongoing tobacco use, lymphoma, and pneumonia. Today, an arterial line will be placed. Will start tube feedings. In addition, the patient will be started on budesonide, and formoterol, usual doses. White count 25.2, hemoglobin 14.5, hematocrit 44.2, platelet count normal. Sodium 131, potassium 4, chloride 93, CO2 35, BUN 13, creatinine 0.52. Troponins were 0.018, and 0.013. Glucose is 177. Chest x-ray shows bibasilar opacities, potentially consistent with pneumonia. Patient continues on Rocephin and azithromycin for possible community-acquired pneumonia. Progress note dated February 07, 2024. 63-year-old female seen in room 254. The patient continues on the mechanical ventilator. She is on volume assist-control, rate 30, tidal line 350, FiO2 60%, PEEP of 8. Blood gases show pO2 of 80, pCO2 of 68, pH is 7.37. The patient still has a high peak airway pressure relative to the plateau pressure, and she still quite bronchospastic. Likely not ready to wean. The patient is on propofol at 40 mcg/kg/min, saline at 100 cc an hour, and vital HP at 40 cc an hour, with a goal of 50. We will attempt a daily interruption of sedation today. The patient's procalcitonin level was 0.26. After 3 days of az ithromycin, and Rocephin, antibiotics will be discontinued. White count of 16.7, hemoglobin hematocrit and platelet count all normal. Sodium 133, potassium 3.6, chlorides 99, CO2 38, BUN 17, creatinine 0.60. Glucose is 126. Magnesium 2.6. Cultures are thus far negative. Chest x-ray shows bilateral diffuse and patchy infiltrates. Progress note dated February 08, 2024. 63-year-old female seen today in room 254. She remains on mechanical ventilator. She is on volume assist-control, rate 30, tidal line 350, FiO2 60%, PEEP of 8. Blood gases show pO2 of 69, pCO2 of 64, pH is 7.39. The patient still has a very large difference between peak airway pressure and plateau pressure. Calculated airways resistance is 16 cmH2O per liter per second. The patient is currently on propofol at 40 mcg/kg/min, saline at 100 cc an hour, and vital high-protein at 40, which is goal. Today we add some Dilaudid. The patient will not have a spontaneous breathing trial today. White count 15.7, hemoglobin 12.2, hematocrit 38.3, platelet count normal. Sodium 139, potassium 4.3, chlorides 103, CO2 38, BUN 20, creatinine 0.51. Magnesium is 2.4. Calcium 8.3. Cultures are currently negative. Chest x-ray shows an endotracheal tube that needs to be placed on a couple centimeters, and a left pleural effusion. Note dated February 09, 2024. 63-year-old female seen again in room 254. She remains on the ventilator. Settings are volume assist-control, rate of 30, tidal volume 350, FiO2 60%, PEEP of 8. Arterial blood gases show pO2 of 70, pCO2 of 64, pH of 7.41. Patient's peak airway pressure is 36 cm of water. The Plateau pressures 20 cm of water. The patient continues on propofol at 50 mcg/kg/min, saline at 20 cc an hour, and vital high-protein at 40, which is goal. The patient will get 1 dose of Lasix, 40 mg IV push. Current labs with a white count 17.5, with normal hemoglobin h ematocrit and platelet count. Sodium 140, potassium 4.4, chlorides 103, CO2 34, BUN 26, creatinine 0.53. Glucose is 148. Patient's chest x-ray reveals bibasilar opacities. 02/10/2024, the patient is being seen for a follow-up. The patient remains intubated on the mechanical ventilator. The patient has been COPD and the patient was treated for pneumonia on outpatient basis and subsequently she was brought into oxygen respiratory failure requiring intubation mechanical ventilation. I reviewed the CAT scan of the chest was done on this patient on 02/05/2024. There is evidence of advanced emphysema. The left hemidiaphragm is quite elevated and there may be a component of left hemidiaphragmatic paralysis. The patient has bullous emphysematous changes in upper lobes bilaterally left m ore than right. There is also a nodular density in the left apex. The patient remains intubated on the mechanical ventilator. This morning, the patient is on propofol running at 50 mcg/kg/min. She remains on assist-control mode with a rate of 30, tidal volume of 350, FiO2 of 60% with a PEEP of 8. The monitoring of blood gases showed a pH of 7.45 with a pCO2 of 60 and pO2 of 50 and based on that the PEEP was brought up to 10. The patient is on normal citrate of 20 cc an hour. The peak airway pressure is around 32. The fluid balance is -2.9 L over the past 24 hours as the patient was given diuretics. The follow-up chest x-ray from this morning shows bilateral infiltrates and small bilateral pleural effusion and bullous emphysematous changes in the lung apices bilaterally. Orogastric and orotracheal tube are all in good location. The white cell count of 13.6 with a hemoglobin 13 and a platelet count of 206. The sodium is at 140, BUN is 33 with a creatinine of 0.5. Serum bicarb is at 37. Blood sugars at 154. The patient is receiving enteral feeding for nutritional support. The patient is on Lovenox 40 mg subcu for DVT prophylaxis. The patient is on a combination of Perforomist and Pulmicort nebulized treatments twice a day, IV Solu-Medrol 60 mg every 6 hours and DuoNeb nebulized treatments [id number]. Objective - Vital Signs Vital signs: Vital Signs Temp 99.2 F 02/10/24 08:00 Pulse 85 02/10/24 10:00 Resp 30 H 02/10/24 10:00 BP 157/77 02/10/24 10:00 Pulse Ox 93 L 02/10/24 10:00 FiO2 60 02/10/24 08:17 Intake & Output 02/09/24 02/10/24 02/10/24 18:59 06:59 18:59 Intake Total 689.084 2562.361 382 Output Total 3900 1260 375 Balance -2924.600 -73.639 7 Weight 85 kg Intake: IV 276 276 92 Pressure Bag (0.9 Sodium 36 36 12 Chloride) Sodium Chloride 0.9% 1, 240 240 80 000 ml @ 20 mls/hr IV . Q24H [facility] Rx#:[id number] Intake, IV Titration 279.400 310.361 100 Amount propofoL 1,000 mg In 279.400 310.361 100 Empty Bag 1 bag @ 15 MCG/ KG/MIN 8.073 mls/hr IV . [id number] [facility] Rx#:[id number] Tube Feeding 360 480 160 Other 60 120 30 Output: Urine 3900 1260 375 Other: Voiding Method Indwelling Catheter Indwelling Catheter Indwelling Catheter ABP, PAP, CO, CI - Last Documented Arterial Blood Pressure 143/78 - Exam No acute distress, sedated with propofol, with an orally placed endotracheal tube. The patient is calm and comfortable and synchronous with mechanical ventilator. Head exam was generally normal. There was no scleral icterus or corneal arcus. Mucous membranes were moist. Neck supple. Full range of motion. No adenopathy thyromegaly or neck vein distention. Cardiovascular examination reveals regular rhythm rate. S1-S2 normal. No S3 or S4. No discernible murmur noted. Heart sounds are distant. Lungs reveal very diminished breath sounds. There is expiratory rhonchi and wheezes. Breath sounds are equal but diminished. No crackles. Abdomen is soft, without bowel sounds. No obvious masses. Extremities are intact. No cyanosis clubbing or edema. Skin is without rash or lesion. Neurologic the patient is sedated, grimaces to painful stimulation in all 4 extremities. - Labs CBC & Chem 7: 02/10/24 05:24 02/10/24 05:24 Labs: Abnormal Lab Results - Last 24 Hours (Table) 02/09/24 02/09/24 02/09/24 Range/Units 11:29 17:16 23:28 WBC (3.8-10.6) k/uL Neutrophils # (1.3-7.7) k/uL ABG pCO2 (35-45) mmHg ABG pO2 (83-108) mmHg ABG HCO3 (21-25) mmol/L ABG Total CO2 (19-24) mmol/L ABG O2 Saturation (94-97) % Chloride (98-107) mmol/L Carbon Dioxide (22-30) mmol/L BUN (7-17) mg/dL Creatinine (0.52-1.04) mg/dL Glucose (74-99) mg/dL POC Glucose (mg/dL) 148 H 150 H 170 H (70-110) mg/dL 02/10/24 02/10/24 02/10/24 Range/Units 04:38 05:24 05:24 WBC 13.6 H (3.8-10.6) k/uL Neutrophils # 11.7 H (1.3-7.7) k/uL ABG pCO2 66 H (35-45) mmHg ABG pO2 58 L* (83-108) mmHg ABG HCO3 46 H* (21-25) mmol/L ABG Total CO2 48 H (19-24) mmol/L ABG O2 Saturation 90.9 L (94-97) % Chloride 97 L (98-107) mmol/L Carbon Dioxide 37 H (22-30) mmol/L BUN 33 H (7-17) mg/dL Creatinine 0.51 L (0.52-1.04) mg/dL Glucose 156 H (74-99) mg/dL POC Glucose (mg/dL) (70-110) mg/dL 02/10/24 Range/Units 05:49 WBC (3.8-10.6) k/uL Neutrophils # (1.3-7.7) k/uL ABG pCO2 (35-45) mmHg ABG pO2 (83-108) mmHg ABG HCO3 (21-25) mmol/L ABG Total CO2 (19-24) mmol/L ABG O2 Saturation (94-97) % Chloride (98-107) mmol/L Carbon Dioxide (22-30) mmol/L BUN (7-17) mg/dL Creatinine (0.52-1.04) mg/dL Glucose (74-99) mg/dL POC Glucose (mg/dL) 154 H (70-110) mg/dL Assessment and Plan Plan: Acute hypoxemic respiratory failure requiring intubation and mechanical v entilation, and the patient was intubated on 02/05/2024 and the patient remains on the mechanical ventilator. Review of the CAT scan of the chest shows bullous emphysematous changes with upper lobe predominance, left upper lobe pulmonary opacity/scar and the patient also has an elevated left hemidiaphragm, highly suggestive of left hemidiaphragmatic paralysis contributing to respiratory failure. The patient remains intubated on the mechanical ventilator. Bullous emphysema with upper lobe predominance Left apical pulmonary nodule/lesion Advanced COPD/tobacco consumer and the patient has chronic hypoxic respiratory failure Bilateral lower lobe pneumonia, suspected the time of admission the patient was treated with a combination of Rocephin and Zithromax. Procalcitonin level is at 0.26. Viral screen negative. Sputum Gram stain and culture has been negative and Legionella urine antigen is also negative. Diabetes mellitus type 2 Plan Continue ventilator support Switch this patient to a SIMV mode of mechanical ventilation with a tidal volume of 400 and rate of 6. Will also utilize a pressure support of 15 with a PEEP of 5 and a follow-up blood gas will be obtained Continue bronchodilators Continue steroids Hold antibiotics for now Repeat chest x-ray with next 24 hours Lovenox for DVT prophylaxis Consider tracheostomy if the patient fails to wean successfully off the [facility] ventilator over the next 48 hours. Time with Patient: Greater than 30
[2024-02-10 17:54] LABS: Glucose,Whole Blood 146 mg/dL (70-110)
[2024-02-10 23:22] LABS: Glucose,Whole Blood 164 mg/dL (70-110)
[2024-02-11 05:36] LABS: Glucose,Whole Blood 163 mg/dL (70-110)
[2024-02-11 05:47] LABS: ABG Base Excess 14.4 mmol/L; ABG Oxygen Saturation 92.7 % (94-97); ABG PCO2 61 mmHg (35-45); ABG PH 7.44 (7.35-7.45); ABG PO2 65 mmHg (83-108); ABG TCO2 43 mmol/L (19-24); Allen Test Performed? Yes
[2024-02-11 05:50] LABS: ABG HCO3 41 mmol/L (21-25)
[2024-02-11 06:35] LABS: Basophils % (A) 0 %; Eosinophils # (A) 0.1 k/uL (0-0.7); Eosinophils % (A) 0 %; HCT 42.1 % (34.0-46.0); HGB 13.2 gm/dL (11.4-16.0); Hypochromasia Slight; Lymphocytes # (A) 1.7 k/uL (1.0-4.8); Lymphocytes % (A) 12 %; MCH 30.7 pg (25.0-35.0); MCHC 31.4 g/dL (31.0-37.0); MCV 97.8 fL (80.0-100.0); Mean Platelet Volume 7.4; Monocytes # (A) 0.3 k/uL (0-1.0); Monocytes % (A) 2 %; Neutrophils # (A) 12.6 k/uL (1.3-7.7); Neutrophils % (A) 85 %; Platelet Count 192 k/uL (150-450); RBC 4.31 m/uL (3.80-5.40); RDW 13.7 % (11.5-15.5); WBC 14.8 k/uL (3.8-10.6)
[2024-02-11 06:46] LABS: African American GFR (CKD) >90 (>60 ml/min/1.73 sqM); Blood Urea Nitrogen 34 mg/dL (7-17); Calcium 8.9 mg/dL (8.4-10.2); Chloride 100 mmol/L (98-107); Glucose 154 mg/dL (74-99); Non-African American GFR(CKD) >90 (>60 ml/min/1.73 sqM); Potassium 4.2 mmol/L (3.5-5.1); Sodium 141 mmol/L (137-145)
[2024-02-11 06:53] LABS: Anion Gap 6 mmol/L
[2024-02-11 06:57] LABS: Carbon Dioxide 35 mmol/L (22-30)
--- NOTE | 2024-02-11 07:46 | XR ---
EXAMINATION TYPE: XR chest 1V portable DATE OF EXAM: 02/11/2024 COMPARISON: 02/10/2024 CLINICAL INDICATION: Female, 63 years old with history of mechanical ventilation; , TECHNIQUE: XR chest 1V portable views of the chest. FINDINGS: Central line, ET tube and NG tube stable. Bullous emphysematous changes involving the lung apices. Bi lateral consolidation and small effusion. Heart size stable. Degenerative changes of the spine. IMPRESSION: 1. Bilateral infiltrate and small effusion slightly improved at the right lung base. [facility], , 02/11/2024 7:43 AM
[2024-02-11] MEDS: DEXMEDETOMIDINE/0.9% NACL(PMX) 400 MCG in EMPTY BAG 1 BAG IV SCH (10:17)
--- NOTE | 2024-02-11 11:15 | P.PN ---
Subjective Progress Note Date: 02/11/24 [facility] [address], [place] [address] Progress Note - SOAP Patient Name: Pia Kennedy Date of : 1960 Patient Status: Inpatient Attending Provider: Negra Galdamez Date: 02/10/24 08:44 Initialization Date: 02/10/24 08:44 Subjective Progress Note Date: 02/10/24 Principal diagnosis: 63 year old F with PMH of COPD smoking 2PPD presents to the ED for altered mentation and acute hypoxic respiratory failure. Her is at bedside providing history. Patient has a chronic dry cough. However, over the past 2 weeks her cough has been more productive described as glue. She was admitted at [place] 2 days ago for COPD exacerbation and bilateral pneumonia. Patient requested to go home, and she was discharged on 4L NC, steroids and antibiotics. Since then, she has progressively worsened. She initially presented to [facility]. She was intubated and transferred to [facility] for higher level of care. Initial BP 114/69, T 96.8F, HR 87, RR 20, 100%, mechanically intubated. CBC, Coag panel, CMP significant for WBC 33.3, Na 127, Cl 91, bicarb 31, glu 164, Ca 7.5. Lactic acid 1.5. Mag 1.9. BNP 3140. CXR concerning for L PTX, bibasilar airspace opacities. Chest CT no PTX, severe emphysema, bibasilar atelectasis, right adrenal nodule, elevated L diaphragm, mild pectus excavatum. Started on Rocephin, Azithromycin, SoluMedrol, Levophed and admitted to ICU for further workup and management. 02/05 Patient was seen and examined. Currently on Nimbex at 2 mcg/kg/min and Propofol at 35 mcg/kg/min. Pressors include Levophed at 0.04 mcg/kg/min. Antibiotics include Rocephin and Azithromycin. CBC and BMP significant for WBC 25.2, Na 131, Cl 93, bicarb 35, glu 183, Ca 8.3. Mag 2.3. EKG shows sinus rhythm with no ST T wave changes. COVID, RSV, Flu neg. CXR with bibasilar opacities. 02/06 Patient was seen and examined. Currently on Propofol at 50 mcg/kg/min. Levophed has been weaned off. Antibiotics include Rocephin 2g IV QD and Azithromycin 500 mg IV QD. CBC and BMP significant for WBC 16.7, Na 133, bicarb 38, glu 163, Ca 8.2. Mag 2.6. Echo shows EF 55-60%. Procal is 0.26. A1c is 6.3. Sputum Cx few PMN, rare GPC and GNB. BCx neg at 24H. Troponin 0.018, 0.013. CXR remains stable to yesterdays CXR. 02/07 Patient was seen and examined. Currently on Propofol at 50 mcg/kg/min. Completed 3 days of Rocephin and Azithromycin. CBC and BMP significant for WBC 15.7, bicarb 38, BUN 20, Cr 0.51, glu 160, Ca 8.3. Mag 2.4. Sputum Cx growing respiratory ольга. BCx neg at 48H. CXR remains stable to yesterdays CXR with the addition of small left pleural effusion. 02/08 Patient was seen and examined. Currently on Propofol at 50 mcg/kg/min. CBC and BMP significant for WBC 17.5, bicarb 34, BUN 26, glu 174. BCx neg at 72H. CXR done today shows bibasilar opacities. 02/09: Remains intubated on fio2 60% with peep of 10. Remains sedated on propofol and on enteral feeding. ABG this am showing pH of 7.45 with a pco2 of 66,. 02/10: Patient seen and examined at bedside, currently on CPAP trial, sedation resolved, patient is awake responsive to command, able to give 2 thumbs up possible extubation today Objective - Vital Signs Vital signs: Vital Signs Temp 99.2 F 02/10/24 04:00 Pulse 74 02/10/24 08:15 Resp 30 H 02/10/24 07:00 BP 142/80 02/10/24 07:00 Pulse Ox 93 L 02/10/24 07:00 FiO2 60 02/10/24 08:17 Intake & Output 02/09/24 02/10/24 02/10/24 18:59 06:59 18:59 Intake Total 294.734 0954.361 256 Output Total 3900 1260 225 Balance -2924.600 -73.639 31 Weight 85 kg Intake: IV 276 276 46 Pressure Bag (0.9 Sodium 36 36 6 Chloride) Sodium Chloride 0.9% 1, 240 240 40 000 ml @ 20 mls/hr IV . Q24H [facility] Rx#:[id number] Intake, IV Titration 279.400 310.361 100 Amount propofoL 1,000 mg In 279.400 310.361 100 Empty Bag 1 bag @ 15 MCG/ KG/MIN 8.073 mls/hr IV . [id number] [facility] Rx#:[id number] Tube Feeding 360 480 80 Other 60 120 30 Output: Urine 3900 1260 225 Other: Voiding Method Indwelling Catheter Indwelling Catheter ABP, PAP, CO, CI - Last Documented Arterial Blood Pressure 143/78 - Exam General: Intubated, female, appears stated age. R ij Cvcc Derm: warm, dry Head: atraumatic, normocephalic, symmetric Eyes: no lid lag, anicteric sclera Mouth: no lip lesion, mucus membranes moist Cardiovascular: S1S2 reg, no murmur Lungs: Decreased BS bilateral, no rhonchi, no rales on mechanical ventilation Abdominal: soft, non tender to palpation Ext: no gross muscle atrophy, no edema, no contractures Neuro: Unable to determine as sedated Psych: Unable to determine as sedated - Labs CBC & Chem 7: 02/10/24 05:24 02/10/24 05:24 Labs: Abnormal Lab Results - Last 24 Hours (Table) 02/09/24 02/09/24 02/09/24 Range/Units 11:29 17:16 23:28 WBC (3.8-10.6) k/uL Neutrophils # (1.3-7.7) k/uL ABG pCO2 (35-45) mmHg ABG pO2 (83-108) mmHg ABG HCO3 (21-25) mmol/L ABG Total CO2 (19-24) mmol/L ABG O2 Saturation (94-97) % Chloride (98-107) mmol/L Carbon Dioxide (22-30) mmol/L BUN (7-17) mg/dL Creatinine (0.52-1.04) mg/dL Glucose (74-99) mg/dL POC Glucose (mg/dL) 148 H 150 H 170 H (70-110) mg/dL 02/10/24 02/10/24 02/10/24 Range/Units 04:38 05:24 05:24 WBC 13.6 H (3.8-10.6) k/uL Neutrophils # 11.7 H (1.3-7.7) k/uL ABG pCO2 66 H (35-45) mmHg ABG pO2 58 L* (83-108) mmHg ABG HCO3 46 H* (21-25) mmol/L ABG Total CO2 48 H (19-24) mmol/L ABG O2 Saturation 90.9 L (94-97) % Chloride 97 L (98-107) mmol/L Carbon Dioxide 37 H (22-30) mmol/L BUN 33 H (7-17) mg/dL Creatinine 0.51 L (0.52-1.04) mg/dL Glucose 156 H (74-99) mg/dL POC Glucose (mg/dL) (70-110) mg/dL 02/10/24 Range/Units 05:49 WBC (3.8-10.6) k/uL Neutrophils # (1.3-7.7) k/uL ABG pCO2 (35-45) mmHg ABG pO2 (83-108) mmHg ABG HCO3 (21-25) mmol/L ABG Total CO2 (19-24) mmol/L ABG O2 Saturation (94-97) % Chloride (98-107) mmol/L Carbon Dioxide (22-30) mmol/L BUN (7-17) mg/dL Creatinine (0.52-1.04) mg/dL Glucose (74-99) mg/dL POC Glucose (mg/dL) 154 H (70-110) mg/dL Microbiology - Last 24 Hours (Table) 02/05/24 20:04 Blood Culture - Preliminary Blood 02/05/24 19:52 Blood Culture - Preliminary Blood Assessment and Plan Assessment: Acute metabolic encephalopathy likely due to below Acute hypoxic respiratory failure likely due to below: ACS has been ruled out. Improving Acute COPD exacerbation: SoluMedrol 60 mg IV Q6H. DuoNeb QID scheduled and Q2H PRN for SOB/wheezing. Pulmicort 1 mg INH BID. Telemetry monitoring. Pulmonary on board. Vent day 7, currently on minimal vent settings, CPAP trial initiated, maintaining oxygen saturation above 97%, wake and alert, responsive to commands, possible extubation today. Septic shock secondary to bilateral pnuemonia: Completed 3 days of Rocephin and Azithromcyin. Procal 0.26. Legionella Ag, COVID/RSV/Flu neg. Sputum Cx respiratory ольга. BCx prelim neg. IVF to KVO Metabolic alkalosis as compensation for respiratory acidosis Diabetes mellitus: A1c 6.3. ISS Q6H. Accuchecks q6hr. Continue enteral feeding at 40 cc/hr. Hypona: resolved CODE STATUS: FULL CODE DVT Prophylaxis: Lovenox SQ GI Prophylaxis: Protonix IV Designated medical POA if patient is not able to make medical decisions for themselves: . I have reviewed the following color consultant notes: Pulmonary note. I have reviewed the results of the following tests: CBC, BMP, ABG I have ordered the following tests: I have discussed the care of this patient with the following independent historian: I have independently interpreted the following test below: CXR I have discussed the management of this patient with the following physician: Time with Patient: Greater than 30 Objective - Vital Signs Vital signs: Vital Signs Temp 98.4 F 02/11/24 08:00 Pulse 86 02/11/24 09:00 Resp 30 H 02/11/24 09:00 BP 138/64 02/11/24 09:00 Pulse Ox 95 02/11/24 09:00 FiO2 50 02/11/24 09:46 Intake & Output 02/10/24 02/11/24 02/11/24 18:59 06:59 18:59 Intake Total 1763.939 4059.393 267.258 Output Total 1275 1495 180 Balance -113.849 -454.607 87.258 Weight 85 kg 84 kg Intake: IV 276 252 40 Pressure Bag (0.9 Sodium 36 12 Chloride) Sodium Chloride 0.9% 1, 240 240 40 000 ml @ 20 mls/hr IV . Q24H [facility] Rx#:[id number] Intake, IV Titration 364.151 266.393 161.258 Amount Dexmedetomidine/0.9% NaCl 4.06 (Pmx) 400 mcg In Empty Bag 1 bag @ 0.2 MCG/KG/HR 4.2 mls/hr IV .[id number] [facility] Rx#:[id number] propofoL 1,000 mg In 364.151 266.393 157.198 Empty Bag 1 bag @ 15 MCG/ KG/MIN 8.073 mls/hr IV . [id number] [facility] Rx#:[id number] Tube Feeding 431 429 66 Other 90 93 Output: Urine 1275 1495 180 Other: Voiding Method Indwelling Catheter Indwelling Catheter Indwelling Catheter ABP, PAP, CO, CI - Last Documented Arterial Blood Pressure 143/78 - Labs CBC & Chem 7: 02/11/24 06:24 02/11/24 06:24 Labs: Abnormal Lab Results - Last 24 Hours (Table) 02/10/24 02/10/24 02/10/24 Range/Units 11:14 11:50 17:52 WBC (3.8-10.6) k/uL Neutrophils # (1.3-7.7) k/uL ABG pH 7.54 H (7.35-7.45) ABG pCO2 50 H (35-45) mmHg ABG pO2 66 L (83-108) mmHg ABG HCO3 43 H* (21-25) mmol/L ABG Total CO2 45 H (19-24) mmol/L ABG O2 Saturation (94-97) % Carbon Dioxide (22-30) mmol/L BUN (7-17) mg/dL Glucose (74-99) mg/dL POC Glucose (mg/dL) 154 H 146 H (70-110) mg/dL 02/10/24 02/11/24 02/11/24 Range/Units 23:20 04:45 05:34 WBC (3.8-10.6) k/uL Neutrophils # (1.3-7.7) k/uL ABG pH (7.35-7.45) ABG pCO2 61 H (35-45) mmHg ABG pO2 65 L (83-108) mmHg ABG HCO3 41 H* (21-25) mmol/L ABG Total CO2 43 H (19-24) mmol/L ABG O2 Saturation 92.7 L (94-97) % Carbon Dioxide (22-30) mmol/L BUN (7-17) mg/dL Glucose (74-99) mg/dL POC Glucose (mg/dL) 164 H 163 H (70-110) mg/dL 02/11/24 02/11/24 Range/Units 06:24 06:24 WBC 14.8 H (3.8-10.6) k/uL Neutrophils # 12.6 H (1.3-7.7) k/uL ABG pH (7.35-7.45) ABG pCO2 (35-45) mmHg ABG pO2 (83-108) mmHg ABG HCO3 (21-25) mmol/L ABG Total CO2 (19-24) mmol/L ABG O2 Saturation (94-97) % Carbon Dioxide 35 H (22-30) mmol/L BUN 34 H (7-17) mg/dL Glucose 154 H (74-99) mg/dL POC Glucose (mg/dL) (70-110) mg/dL Microbiology - Last 24 Hours (Table) 02/05/24 20:04 Blood Culture - Final Blood 02/05/24 19:52 Blood Culture - Final Blood
[2024-02-11 11:54] LABS: ABG Base Excess 14.1 mmol/L; ABG Oxygen Saturation 94.2 % (94-97); ABG PCO2 61 mmHg (35-45); ABG PH 7.44 (7.35-7.45); ABG PO2 71 mmHg (83-108); ABG TCO2 43 mmol/L (19-24); Allen Test Performed? Yes
[2024-02-11 11:57] LABS: ABG HCO3 41 mmol/L (21-25)
[2024-02-11 11:58] LABS: Glucose,Whole Blood 140 mg/dL (70-110)
--- NOTE | 2024-02-11 12:47 | P.PN ---
Subjective Progress Note Date: 02/11/24 This is a 63-year-old female who was transferred down from [facility]. She apparently was at [place] yesterday, diagnosed as having pneumonia, given Omnicef 300 twice a day, discharged from the emergency department. She apparently came back today, with worsened respiratory distress, and ended up requiring intubation, and mechanical ventilation, and was shipped down to [facility]. I saw her in the emergency department, trauma room 2. She is on the mechanical ventilator. The respiratory therapist switch her from volume assist-control, because of high airway pressures to pressure assist control. Her inspiratory pressure or Pi is 20 cm of water. Her inspiratory time or Ti is 0.7 seconds. The patient is receiving 100% oxygen, with a PEEP of 5, and a rate of 14 breaths/min. She was given Rocephin and vancomycin at the outside hospital. She is currently on propofol at 10 mcg/kg/min, norepinephrine at 0.05 mcg/kg/min. She is not currently receiving any IV fluids. Current labs include a white count 33.3, hemoglobin hematocrit and platelet count all normal. Sodium 127, potassium 4, chlorides 91, CO2 31, glucose 164. Calcium 7.5. N- terminal proBNP 3140. Chest x-ray may show some bibasilar atelectasis or infiltrates. There may be concern for a small left apical pneumothorax. A CT scan was ordered. Progress note dated February 06, 2024. This is a 63-year-old female seen today in room 254. The patient remains on volume assist-control, rate 30, tidal volume 350, FiO2 70%, PEEP of 8. Blood gases show pO2 76, pCO2 65, pH is 7.39. The patient is on saline at 100 cc an hour, norepinephrine at 2 mcg/min, propofol at 35 mcg/kg/min and Nimbex at 1 mcg /kg/min, with [id number] monitoring. The patient has a history of COPD, ongoing tobacco use, lymphoma, and pneumonia. Today, an arterial line will be placed. Will start tube feedings. In addition, the patient will be started on budesonide, and formoterol, usual doses. White count 25.2, hemoglobin 14.5, hematocrit 44.2, platelet count normal. Sodium 131, potassium 4, chloride 93, CO2 35, BUN 13, creatinine 0.52. Troponins were 0.018, and 0.013. Glucose is 177. Chest x-ray shows bibasilar opacities, potentially consistent with pneumonia. Patient continues on Rocephin and azithromycin for possible community-acquired pneumonia. Progress note dated February 07, 2024. 63-year-old female seen in room 254. The patient continues on the mechanical ventilator. She is on volume assist-control, rate 30, tidal line 350, FiO2 60%, PEEP of 8. Blood gases show pO2 of 80, pCO2 of 68, pH is 7.37. The patient still has a high peak airway pressure relative to the plateau pressure, and she still quite bronchospastic. Likely not ready to wean. The patient is on propofol at 40 mcg/kg/min, saline at 100 cc an hour, and vital HP at 40 cc an hour, with a goal of 50. We will attempt a daily interruption of sedation today. The patient's procalcitonin level was 0.26. After 3 days of az ithromycin, and Rocephin, antibiotics will be discontinued. White count of 16.7, hemoglobin hematocrit and platelet count all normal. Sodium 133, potassium 3.6, chlorides 99, CO2 38, BUN 17, creatinine 0.60. Glucose is 126. Magnesium 2.6. Cultures are thus far negative. Chest x-ray shows bilateral diffuse and patchy infiltrates. Progress note dated February 08, 2024. 63-year-old female seen today in room 254. She remains on mechanical ventilator. She is on volume assist-control, rate 30, tidal line 350, FiO2 60%, PEEP of 8. Blood gases show pO2 of 69, pCO2 of 64, pH is 7.39. The patient still has a very large difference between peak airway pressure and plateau pressure. Calculated airways resistance is 16 cmH2O per liter per second. The patient is currently on propofol at 40 mcg/kg/min, saline at 100 cc an hour, and vital high-protein at 40, which is goal. Today we add some Dilaudid. The patient will not have a spontaneous breathing trial today. White count 15.7, hemoglobin 12.2, hematocrit 38.3, platelet count normal. Sodium 139, potassium 4.3, chlorides 103, CO2 38, BUN 20, creatinine 0.51. Magnesium is 2.4. Calcium 8.3. Cultures are currently negative. Chest x-ray shows an endotracheal tube that needs to be placed on a couple centimeters, and a left pleural effusion. Note dated February 09, 2024. 63-year-old female seen again in room 254. She remains on the ventilator. Settings are volume assist-control, rate of 30, tidal volume 350, FiO2 60%, PEEP of 8. Arterial blood gases show pO2 of 70, pCO2 of 64, pH of 7.41. Patient's peak airway pressure is 36 cm of water. The Plateau pressures 20 cm of water. The patient continues on propofol at 50 mcg/kg/min, saline at 20 cc an hour, and vital high-protein at 40, which is goal. The patient will get 1 dose of Lasix, 40 mg IV push. Current labs with a white count 17.5, with normal hemoglobin h ematocrit and platelet count. Sodium 140, potassium 4.4, chlorides 103, CO2 34, BUN 26, creatinine 0.53. Glucose is 148. Patient's chest x-ray reveals bibasilar opacities. 02/10/2024, the patient is being seen for a follow-up. The patient remains intubated on the mechanical ventilator. The patient has been COPD and the patient was treated for pneumonia on outpatient basis and subsequently she was brought into oxygen respiratory failure requiring intubation mechanical ventilation. I reviewed the CAT scan of the chest was done on this patient on 02/05/2024. There is evidence of advanced emphysema. The left hemidiaphragm is quite elevated and there may be a component of left hemidiaphragmatic paralysis. The patient has bullous emphysematous changes in upper lobes bilaterally left m ore than right. There is also a nodular density in the left apex. The patient remains intubated on the mechanical ventilator. This morning, the patient is on propofol running at 50 mcg/kg/min. She remains on assist-control mode with a rate of 30, tidal volume of 350, FiO2 of 60% with a PEEP of 8. The monitoring of blood gases showed a pH of 7.45 with a pCO2 of 60 and pO2 of 50 and based on that the PEEP was brought up to 10. The patient is on normal citrate of 20 cc an hour. The peak airway pressure is around 32. The fluid balance is -2.9 L over the past 24 hours as the patient was given diuretics. The follow-up chest x-ray from this morning shows bilateral infiltrates and small bilateral pleural effusion and bullous emphysematous changes in the lung apices bilaterally. Orogastric and orotracheal tube are all in good location. The white cell count of 13.6 with a hemoglobin 13 and a platelet count of 206. The sodium is at 140, BUN is 33 with a creatinine of 0.5. Serum bicarb is at 37. Blood sugars at 154. The patient is receiving enteral feeding for nutritional support. The patient is on Lovenox 40 mg subcu for DVT prophylaxis. The patient is on a combination of Perforomist and Pulmicort nebulized treatments twice a day, IV Solu-Medrol 60 mg every 6 hours and DuoNeb nebulized treatments [id number]. On 02/11/2024, patient is being seen for a follow-up. The patient remains on Precedex at 0.4 mcg/kg/min.. She is arousable. She was taken off this time. She was placed on assist-control again and this morning she was assist-control of 30, FiO2 of 50% with a PEEP of 8 and a tidal volume of 350. Blood gas showed a pH of 7.44 with pCO2 of 61 and pO2 of 65. Based on this morning's evaluation, I switch this patient to a pressure support mode of mechanical ventilation at rate of 15 with a PEEP of 5 and we are in the process of weaning the patient off the sedation. She is quite comfortable. The peak airway pressure while being on assist-control mode of mechanical ventilation was 25. Bronchospasm wheezing is less compared to yesterday. Chest x-ray shows some left basilar atelectasis/infiltrate. Fluid balance is -580 cc over the past 24 hours. The patient is on vital high-protein at rate of 32 cc an hour. IV fluids are currently at KVO. She remains on DuoNeb of chest. She remains on IV Solu- Medrol. The patient has a white cell count of 14.8 with a hemoglobin of 13.2 and a platelet count of 192. The patient also has a BUN of 35 with a creatinine of 0.5. Sodium levels at 141. Objective - Vital Signs Vital signs: Vital Signs Temp 98.4 F 02/11/24 08:00 Pulse 86 02/11/24 11:24 Resp 17 02/11/24 11:00 BP 182/91 02/11/24 11:00 Pulse Ox 96 02/11/24 11:00 FiO2 40 02/11/24 12:21 Intake & Output 02/10/24 02/11/24 02/11/24 18:59 06:59 18:59 Intake Total 4289.884 8026.393 425.078 Output Total 1275 1495 430 Balance -113.849 -454.607 -4.922 Weight 85 kg 84 kg Intake: IV 276 252 80 Pressure Bag (0.9 Sodium 36 12 Chloride) Sodium Chloride 0.9% 1, 240 240 80 000 ml @ 20 mls/hr IV . Q24H [facility] Rx#:[id number] Intake, IV Titration 364.151 266.393 213.078 Amount Dexmedetomidine/0.9% NaCl 5.88 (Pmx) 400 mcg In Empty Bag 1 bag @ 0.2 MCG/KG/HR 4.2 mls/hr IV .[id number] [facility] Rx#:[id number] cefTRIAXone 2 gm In 50 Sodium Chloride 0.9% 50 ml @ 100 mls/hr IVPB Q24HR [facility] Rx#:[id number] propofoL 1,000 mg In 364.151 266.393 157.198 Empty Bag 1 bag @ 15 MCG/ KG/MIN 8.073 mls/hr IV . [id number] [facility] Rx#:[id number] Tube Feeding 431 429 132 Other 90 93 Output: Urine 1275 1495 430 Other: Voiding Method Indwelling Catheter Indwelling Catheter Indwelling Catheter ABP, PAP, CO, CI - Last Documented Arterial Blood Pressure 143/78 - Exam No acute distress, sedated with Precedex, with an orally placed endotracheal tube. The patient is calm and comfortable and synchronous with mechanical ventilator. Head exam was generally normal. There was no scleral icterus or corneal arcus. Mucous membranes were moist. Neck supple. Full range of motion. No adenopathy thyromegaly or neck vein distention. Cardiovascular examination reveals regular rhythm rate. S1-S2 normal. No S3 or S4. No discernible murmur noted. Heart sounds are distant. Lungs reveal very diminished breath sounds. There is expiratory rhonchi and wheezes. Breath sounds are equal but diminished. No crackles. Abdomen is soft, without bowel sounds. No obvious masses. Extremities are intact. No cyanosis clubbing or edema. Skin is without rash or lesion. Neurologic the patient is sedated, grimaces to painful stimulation in all 4 extremities. - Labs CBC & Chem 7: 02/11/24 06:24 02/11/24 06:24 Labs: Abnormal Lab Results - Last 24 Hours (Table) 02/10/24 02/10/24 02/11/24 Range/Units 17:52 23:20 04:45 WBC (3.8-10.6) k/uL Neutrophils # (1.3-7.7) k/uL ABG pCO2 61 H (35-45) mmHg ABG pO2 65 L (83-108) mmHg ABG HCO3 41 H* (21-25) mmol/L ABG Total CO2 43 H (19-24) mmol/L ABG O2 Saturation 92.7 L (94-97) % Carbon Dioxide (22-30) mmol/L BUN (7-17) mg/dL Glucose (74-99) mg/dL POC Glucose (mg/dL) 146 H 164 H (70-110) mg/dL 02/11/24 02/11/24 02/11/24 Range/Units 05:34 06:24 06:24 WBC 14.8 H (3.8-10.6) k/uL Neutrophils # 12.6 H (1.3-7.7) k/uL ABG pCO2 (35-45) mmHg ABG pO2 (83-108) mmHg ABG HCO3 (21-25) mmol/L ABG Total CO2 (19-24) mmol/L ABG O2 Saturation (94-97) % Carbon Dioxide 35 H (22-30) mmol/L BUN 34 H (7-17) mg/dL Glucose 154 H (74-99) mg/dL POC Glucose (mg/dL) 163 H (70-110) mg/dL 02/11/24 02/11/24 Range/Units 11:51 11:57 WBC (3.8-10.6) k/uL Neutrophils # (1.3-7.7) k/uL ABG pCO2 61 H (35-45) mmHg ABG pO2 71 L (83-108) mmHg ABG HCO3 41 H* (21-25) mmol/L ABG Total CO2 43 H (19-24) mmol/L ABG O2 Saturation (94-97) % Carbon Dioxide (22-30) mmol/L BUN (7-17) mg/dL Glucose (74-99) mg/dL POC Glucose (mg/dL) 140 H (70-110) mg/dL Microbiology - Last 24 Hours (Table) 02/05/24 20:04 Blood Culture - Final Blood 02/05/24 19:52 Blood Culture - Final Blood Assessment and Plan Plan: Acute hypoxemic respiratory failure requiring intubation and mechanical ventilation, and the patient was intubated on 02/05/2024 and the patient remains on the mechanical ventilator. Review of the CAT scan of the chest shows bullous emphysematous changes with upper lobe predominance, left upper lobe pulmonary opacity/scar and the patient also has an elevated left hemidiaphragm, highly suggestive of left hemidiaphragmatic paralysis contributing to respiratory failure. The patient remains intubated on the mechanical ventilator. The patient was placed on SIMV yesterday and she was able to tolerate for long period of time. The patient was subsequently placed on assist-control volume- cycled mechanical ventilation. This morning, I put her on a PSV of 15 and a PE EP of 5 and FiO2 of 40%. She was able to tolerate date. I am going to wean her down to a PSV of 10 and a PEEP of 5 and obtain a blood gas. We are also in the process of weaning the patient off the sedation. Bullous emphysema with upper lobe predominance Left apical pulmonary nodule/lesion Advanced COPD/tobacco consumer and the patient has chronic hypoxic respiratory failure Bilateral lower lobe pneumonia, suspected the time of admission the patient was treated with a combination of Rocephin and Zithromax. Procalcitonin level is at 0.26. Viral screen negative. Sputum Gram stain and culture has been negative and Legionella urine antigen is also negative. Diabetes mellitus type 2 Plan Continue ventilator support Switch this patient to PSV of 10 and PEEP of 5 and obtain a blood gas in 30 minutes. Consider extubation to a BiPAP. Follow-up blood gas will be obtained Continue bronchodilators Continue steroids Restart IV Rocephin Repeat chest x-ray with next 24 hours Lovenox for DVT prophylaxis Possible extubation today. If failed extubation, will consider tracheostomy Case was discussed with the at the bedside. This is a critical care evaluation that was done more than 30 minutes. Time with Patient: Greater than 30
[2024-02-11 18:14] LABS: Glucose,Whole Blood 132 mg/dL (70-110)
[2024-02-11 23:29] LABS: Glucose,Whole Blood 136 mg/dL (70-110)
[2024-02-12 05:59] LABS: Glucose,Whole Blood 128 mg/dL (70-110)
[2024-02-12 06:03] LABS: Basophils % (A) 0 %; Eosinophils % (A) 0 %; HCT 47.1 % (34.0-46.0); HGB 14.7 gm/dL (11.4-16.0); Hypochromasia Slight; Lymphocytes # (A) 1.6 k/uL (1.0-4.8); Lymphocytes % (A) 10 %; MCH 30.1 pg (25.0-35.0); MCHC 31.1 g/dL (31.0-37.0); MCV 96.9 fL (80.0-100.0); Mean Platelet Volume 7.3; Monocytes # (A) 0.4 k/uL (0-1.0); Monocytes % (A) 2 %; Neutrophils # (A) 13.8 k/uL (1.3-7.7); Neutrophils % (A) 86 %; Platelet Count 203 k/uL (150-450); RBC 4.87 m/uL (3.80-5.40); RDW 13.5 % (11.5-15.5); WBC 15.9 k/uL (3.8-10.6)
[2024-02-12 06:24] LABS: African American GFR (CKD) >90 (>60 ml/min/1.73 sqM); Anion Gap 5 mmol/L; Blood Urea Nitrogen 32 mg/dL (7-17); Calcium 9.2 mg/dL (8.4-10.2); Carbon Dioxide 31 mmol/L (22-30); Chloride 105 mmol/L (98-107); Glucose 142 mg/dL (74-99); Non-African American GFR(CKD) >90 (>60 ml/min/1.73 sqM); Potassium 3.9 mmol/L (3.5-5.1); Sodium 141 mmol/L (137-145)
[2024-02-12] MEDS: POTASSIUM CHLORIDE 10 MEQ in WATER FOR INJECTION 1 100ML.BAG IVPB SCH (06:56)
--- NOTE | 2024-02-12 07:27 | XR ---
EXAMINATION TYPE: XR chest 1V portable DATE OF EXAM: 02/12/2024 COMPARISON: 02/11/2024 CLINICAL INDICATION: Female, 63 years old with history of mechanical ventilation; , TECHNIQUE: XR chest 1V portable views of the chest. FINDINGS: Central line is stable, ET tube and NG been removed. Bullous emphysematous changes involving the lung apices. Bilateral consolidation and small effusion. Heart size stable. Degenerative changes of the s pine. Somewhat irregular density left upper lobe stable. IMPRESSION: 1. COPD with stable bilateral consolidation small effusion. Irregular density in the left upper lobe or nodule stable. [facility], , 02/12/2024 7:25 AM
[2024-02-12] MEDS: IPRATROPIUM-ALBUTEROL 3 ML NEB INHALATION SCH (07:57)
[2024-02-12] MEDS: LISINOPRIL-HCTZ 20-12.5 MG 1 EACH TAB PO SCH (10:46)
[2024-02-12 11:49] LABS: Glucose,Whole Blood 140 mg/dL (70-110)
--- NOTE | 2024-02-12 13:41 | P.PN ---
Subjective Progress Note Date: 02/12/24 [facility] [address] [place], [place] [address] Progress Note - SOAP Patient Name: Pia Kennedy Date of : 1960 Patient Status: Inpatient Attending Provider: Negra Galdamez Date: 02/10/24 08:44 Initialization Date: 02/10/24 08:44 Subjective Progress Note Date: 02/10/24 Principal diagnosis: 63 year old F with PMH of COPD smoking 2PPD presents to the ED for altered mentation and acute hypoxic respiratory failure. Her is at bedside providing history. Patient has a chronic dry cough. However, over the past 2 weeks her cough has been more productive described as glue. She was admitted at [facility] 2 days ago for COPD exacerbation and bilateral pneumonia. Patient requested to go home, and she was discharged on 4L NC, steroids and antibiotics. Since then, she has progressively worsened. She initially presented to [facility]. She was intubated and transferred to [facility] for higher level of care. Initial BP 114/69, T 96.8F, HR 87, RR 20, 100%, mechanically intubated. CBC, Coag panel, CMP significant for WBC 33.3, Na 127, Cl 91, bicarb 31, glu 164, Ca 7.5. Lactic acid 1.5. Mag 1.9. BNP 3140. CXR concerning for L PTX, bibasilar airspace opacities. Chest CT no PTX, severe emphysema, bibasilar atelectasis, right adrenal nodule, elevated L diaphragm, mild pectus excavatum. Started on Rocephin, Azithromycin, SoluMedrol, Levophed and admitted to ICU for further workup and management. 02/05 Patient was seen and examined. Currently on Nimbex at 2 mcg/kg/min and Propofol at 35 mcg/kg/min. Pressors include Levophed at 0.04 mcg/kg/min. Antibiotics include Rocephin and Azithromycin. CBC and BMP significant for WBC 25.2, Na 131, Cl 93, bicarb 35, glu 183, Ca 8.3. Mag 2.3. EKG shows sinus rhythm with no ST T wave changes. COVID, RSV, Flu neg. CXR with bibasilar opacities. 02/06 Patient was seen and examined. Currently on Propofol at 50 mcg/kg/min. Levophed has been weaned off. Antibiotics include Rocephin 2g IV QD and Azithromycin 500 mg IV QD. CBC and BMP significant for WBC 16.7, Na 133, bicarb 38, glu 163, Ca 8.2. Mag 2.6. Echo shows EF 55-60%. Procal is 0.26. A1c is 6.3. Sputum Cx few PMN, rare GPC and GNB. BCx neg at 24H. Troponin 0.018, 0.013. CXR remains stable to yesterdays CXR. 02/07 Patient was seen and examined. Currently on Propofol at 50 mcg/kg/min. Completed 3 days of Rocephin and Azithromycin. CBC and BMP significant for WBC 15.7, bicarb 38, BUN 20, Cr 0.51, glu 160, Ca 8.3. Mag 2.4. Sputum Cx growing respiratory ольга. BCx neg at 48H. CXR remains stable to yesterdays CXR with the addition of small left pleural effusion. 02/08 Patient was seen and examined. Currently on Propofol at 50 mcg/kg/min. CBC and BMP significant for WBC 17.5, bicarb 34, BUN 26, glu 174. BCx neg at 72H. CXR done today shows bibasilar opacities. 02/09: Remains intubated on fio2 60% with peep of 10. Remains sedated on propofol and on enteral feeding. ABG this am showing pH of 7.45 with a pco2 of 66,. 02/10: Patient seen and examined at bedside, currently on CPAP trial, sedation resolved, patient is awake responsive to command, able to give 2 thumbs up possible extubation today Objective - Vital Signs Vital signs: Vital Signs Temp 99.2 F 02/10/24 04:00 Pulse 74 02/10/24 08:15 Resp 30 H 02/10/24 07:00 BP 142/80 02/10/24 07:00 Pulse Ox 93 L 02/10/24 07:00 FiO2 60 02/10/24 08:17 Intake & Output 02/09/24 02/10/24 02/10/24 18:59 06:59 18:59 Intake Total 988.525 6700.361 256 Output Total 3900 1260 225 Balance -2924.600 -73.639 31 Weight 85 kg Intake: IV 276 276 46 Pressure Bag (0.9 Sodium 36 36 6 Chloride) Sodium Chloride 0.9% 1, 240 240 40 000 ml @ 20 mls/hr IV . Q24H [facility] Rx#:[id number] Intake, IV Titration 279.400 310.361 100 Amount propofoL 1,000 mg In 279.400 310.361 100 Empty Bag 1 bag @ 15 MCG/ KG/MIN 8.073 mls/hr IV . [id number] [facility] Rx#:[id number] Tube Feeding 360 480 80 Other 60 120 30 Output: Urine 3900 1260 225 Other: Voiding Method Indwelling Catheter Indwelling Catheter ABP, PAP, CO, CI - Last Documented Arterial Blood Pressure 143/78 - Exam General: Intubated, female, appears stated age. R ij Cvcc Derm: warm, dry Head: atraumatic, normocephalic, symmetric Eyes: no lid lag, anicteric sclera Mouth: no lip lesion, mucus membranes moist Cardiovascular: S1S2 reg, no murmur Lungs: Decreased BS bilateral, no rhonchi, no rales on mechanical ventilation Abdominal: soft, non tender to palpation Ext: no gross muscle atrophy, no edema, no contractures Neuro: Unable to determine as sedated Psych: Unable to determine as sedated - Labs CBC & Chem 7: 02/10/24 05:24 02/10/24 05:24 Labs: Abnormal Lab Results - Last 24 Hours (Table) 02/09/24 02/09/24 02/09/24 Range/Units 11:29 17:16 23:28 WBC (3.8-10.6) k/uL Neutrophils # (1.3-7.7) k/uL ABG pCO2 (35-45) mmHg ABG pO2 (83-108) mmHg ABG HCO3 (21-25) mmol/L ABG Total CO2 (19-24) mmol/L ABG O2 Saturation (94-97) % Chloride (98-107) mmol/L Carbon Dioxide (22-30) mmol/L BUN (7-17) mg/dL Creatinine (0.52-1.04) mg/dL Glucose (74-99) mg/dL POC Glucose (mg/dL) 148 H 150 H 170 H (70-110) mg/dL 02/10/24 02/10/24 02/10/24 Range/Units 04:38 05:24 05:24 WBC 13.6 H (3.8-10.6) k/uL Neutrophils # 11.7 H (1.3-7.7) k/uL ABG pCO2 66 H (35-45) mmHg ABG pO2 58 L* (83-108) mmHg ABG HCO3 46 H* (21-25) mmol/L ABG Total CO2 48 H (19-24) mmol/L ABG O2 Saturation 90.9 L (94-97) % Chloride 97 L (98-107) mmol/L Carbon Dioxide 37 H (22-30) mmol/L BUN 33 H (7-17) mg/dL Creatinine 0.51 L (0.52-1.04) mg/dL Glucose 156 H (74-99) mg/dL POC Glucose (mg/dL) (70-110) mg/dL 02/10/24 Range/Units 05:49 WBC (3.8-10.6) k/uL Neutrophils # (1.3-7.7) k/uL ABG pCO2 (35-45) mmHg ABG pO2 (83-108) mmHg ABG HCO3 (21-25) mmol/L ABG Total CO2 (19-24) mmol/L ABG O2 Saturation (94-97) % Chloride (98-107) mmol/L Carbon Dioxide (22-30) mmol/L BUN (7-17) mg/dL Creatinine (0.52-1.04) mg/dL Glucose (74-99) mg/dL POC Glucose (mg/dL) 154 H (70-110) mg/dL Microbiology - Last 24 Hours (Table) 02/05/24 20:04 Blood Culture - Preliminary Blood 02/05/24 19:52 Blood Culture - Preliminary Blood Assessment and Plan Assessment: Acute metabolic encephalopathy likely due to below Acute hypoxic respiratory failure likely due to below: ACS has been ruled out. Improving Acute COPD exacerbation: SoluMedrol 60 mg IV Q6H. DuoNeb QID scheduled and Q2H PRN for SOB/wheezing. Pulmicort 1 mg INH BID. Telemetry monitoring. Pulmonary on board. Vent day 7, currently on minimal vent settings, CPAP trial initiated, maintaining oxygen saturation above 97%, wake and alert, responsive to commands, possible extubation today. Septic shock secondary to bilateral pnuemonia: Completed 3 days of Rocephin and Azithromcyin. Procal 0.26. Legionella Ag, COVID/RSV/Flu neg. Sputum Cx respiratory ольга. BCx prelim neg. IVF to KVO Metabolic alkalosis as compensation for respiratory acidosis Diabetes mellitus: A1c 6.3. ISS Q6H. Accuchecks q6hr. Continue enteral feeding at 40 cc/hr. Hypona: resolved 02/10 Patient seen and examined at bedside She was successfully extubated to BiPAP and transition to nasal cannula She is approximately 6 L nasal cannula satting 93%, no conversational dyspnea noted Discussed with family at bedside Prior to her hospitalization, she came to the ER due to shortness of breath, she was discharged on 4 L nasal cannula, she ended up subsequently coming back to the hospital similar day after losing passing out, this led to the series of events of her b requiring intubation Plan is to continue to wean patient down to minimal oxygen Maintain oxygen saturation greater than 92% and no COPD patient Encourage ambulation Not stable for discharge CODE STATUS: FULL CODE DVT Prophylaxis: Lovenox SQ GI Prophylaxis: Protonix IV Designated medical POA if patient is not able to make medical decisions for themselves: . I have reviewed the following project management consultant notes: Pulmonary note. I have reviewed the results of the following tests: CBC, BMP, ABG I have ordered the following tests: I have discussed the care of this patient with the following independent historian: I have independently interpreted the following test below: CXR I have discussed the management of this patient with the following physician: Time with Patient: Greater than 30 Objective - Vital Signs Vital signs: Vital Signs Temp 98.3 F 02/12/24 12:00 Pulse 113 H 02/12/24 12:00 Resp 15 02/12/24 12:00 BP 152/98 02/12/24 12:00 Pulse Ox 93 L 02/12/24 12:00 FiO2 40 02/12/24 07:50 Intake & Output 02/11/24 02/12/24 02/12/24 18:59 06:59 18:59 Intake Total 593.813 255.435 190 Output Total 1400 1490 775 Balance -806.187 -1234.565 -585 Weight 81.8 kg Intake: IV 220 240 190 Potassium Chloride 10 meq 100 In Water For Injection 1 100ml.bag @ 100 mls/hr IVPB Q1H [facility] Rx#: [id number] Sodium Chloride 0.9% 1, 220 240 90 000 ml @ 20 mls/hr IV . Q24H [facility] Rx#:[id number] Intake, IV Titration 241.813 15.435 Amount Dexmedetomidine/0.9% NaCl 34.615 15.435 (Pmx) 400 mcg In Empty Bag 1 bag @ 0.2 MCG/KG/HR 4.2 mls/hr IV .[id number] [facility] Rx#:[id number] cefTRIAXone 2 gm In 50 Sodium Chloride 0.9% 50 ml @ 100 mls/hr IVPB Q24HR [facility] Rx#:[id number] propofoL 1,000 mg In 157.198 Empty Bag 1 bag @ 15 MCG/ KG/MIN 8.073 mls/hr IV . [id number] [facility] Rx#:[id number] Tube Feeding 132 Output: Urine 1400 1490 775 Other: Voiding Method Indwelling Catheter Indwelling Catheter Indwelling Catheter ABP, PAP, CO, CI - Last Documented Arterial Blood Pressure 143/78 - Labs CBC & Chem 7: 02/12/24 05:28 02/12/24 12:37 Labs: Abnormal Lab Results - Last 24 Hours (Table) 02/11/24 02/11/24 02/12/24 Range/Units 18:12 23:28 05:28 WBC 15.9 H (3.8-10.6) k/uL Hct 47.1 H (34.0-46.0) % Neutrophils # 13.8 H (1.3-7.7) k/uL Carbon Dioxide (22-30) mmol/L BUN (7-17) mg/dL Creatinine (0.52-1.04) mg/dL Glucose (74-99) mg/dL POC Glucose (mg/dL) 132 H 136 H (70-110) mg/dL 02/12/24 02/12/24 02/12/24 Range/Units 05:28 05:58 11:47 WBC (3.8-10.6) k/uL Hct (34.0-46.0) % Neutrophils # (1.3-7.7) k/uL Carbon Dioxide 31 H (22-30) mmol/L BUN 32 H (7-17) mg/dL Creatinine 0.49 L (0.52-1.04) mg/dL Glucose 142 H (74-99) mg/dL POC Glucose (mg/dL) 128 H 140 H (70-110) mg/dL
[2024-02-12] MEDS: PERMETHRIN 1% CREME RINSE 59 ML LIQUID TOPICAL ONE ×3 (14:12→16:56)
[2024-02-12 16:47] LABS: Glucose,Whole Blood 144 mg/dL (70-110)
--- NOTE | 2024-02-12 18:41 | P.PN ---
Subjective Progress Note Date: 02/12/24 This is a 63-year-old female who was transferred down from [facility]. She apparently was at [facility] yesterday, diagnosed as having pneumonia, given Omnicef 300 twice a day, discharged from the emergency department. She apparently came back today, with worsened respiratory distress, and ended up requiring intubation, and mechanical ventilation, and was shipped down to [facility]. I saw her in the emergency department, trauma room 2. She is on the mechanical ventilator. The respiratory therapist switch her from volume assist-control, because of high airway pressures to pressure assist control. Her inspiratory pressure or Pi is 20 cm of water. Her inspiratory time or Ti is 0.7 seconds. The patient is receiving 100% oxygen, with a PEEP of 5, and a rate of 14 breaths/min. She was given Rocephin and vancomycin at the outside hospital. She is currently on propofol at 10 mcg/kg/min, norepinephrine at 0.05 mcg/kg/min. She is not currently receiving any IV fluids. Current labs include a white count 33.3, hemoglobin hematocrit and platelet count all normal. Sodium 127, potassium 4, chlorides 91, CO2 31, glucose 164. Calcium 7.5. N- terminal proBNP 3140. Chest x-ray may show some bibasilar atelectasis or infiltrates. There may be concern for a small left apical pneumothorax. A CT scan was ordered. Progress note dated February 06, 2024. This is a 63-year-old female seen today in room 254. The patient remains on volume assist-control, rate 30, tidal volume 350, FiO2 70%, PEEP of 8. Blood gases show pO2 76, pCO2 65, pH is 7.39. The patient is on saline at 100 cc an hour, norepinephrine at 2 mcg/min, propofol at 35 mcg/kg/min and Nimbex at 1 mcg /kg/min, with [id number] monitoring. The patient has a history of COPD, ongoing tobacco use, lymphoma, and pneumonia. Today, an arterial line will be placed. Will start tube feedings. In addition, the patient will be started on budesonide, and formoterol, usual doses. White count 25.2, hemoglobin 14.5, hematocrit 44.2, platelet count normal. Sodium 131, potassium 4, chloride 93, CO2 35, BUN 13, creatinine 0.52. Troponins were 0.018, and 0.013. Glucose is 177. Chest x-ray shows bibasilar opacities, potentially consistent with pneumonia. Patient continues on Rocephin and azithromycin for possible community-acquired pneumonia. Progress note dated February 07, 2024. 63-year-old female seen in room 254. The patient continues on the mechanical ventilator. She is on volume assist-control, rate 30, tidal line 350, FiO2 60%, PEEP of 8. Blood gases show pO2 of 80, pCO2 of 68, pH is 7.37. The patient still has a high peak airway pressure relative to the plateau pressure, and she still quite bronchospastic. Likely not ready to wean. The patient is on propofol at 40 mcg/kg/min, saline at 100 cc an hour, and vital HP at 40 cc an hour, with a goal of 50. We will attempt a daily interruption of sedation today. The patient's procalcitonin level was 0.26. After 3 days of az ithromycin, and Rocephin, antibiotics will be discontinued. White count of 16.7, hemoglobin hematocrit and platelet count all normal. Sodium 133, potassium 3.6, chlorides 99, CO2 38, BUN 17, creatinine 0.60. Glucose is 126. Magnesium 2.6. Cultures are thus far negative. Chest x-ray shows bilateral diffuse and patchy infiltrates. Progress note dated February 08, 2024. 63-year-old female seen today in room 254. She remains on mechanical ventilator. She is on volume assist-control, rate 30, tidal line 350, FiO2 60%, PEEP of 8. Blood gases show pO2 of 69, pCO2 of 64, pH is 7.39. The patient still has a very large difference between peak airway pressure and plateau pressure. Calculated airways resistance is 16 cmH2O per liter per second. The patient is currently on propofol at 40 mcg/kg/min, saline at 100 cc an hour, and vital high-protein at 40, which is goal. Today we add some Dilaudid. The patient will not have a spontaneous breathing trial today. White count 15.7, hemoglobin 12.2, hematocrit 38.3, platelet count normal. Sodium 139, potassium 4.3, chlorides 103, CO2 38, BUN 20, creatinine 0.51. Magnesium is 2.4. Calcium 8.3. Cultures are currently negative. Chest x-ray shows an endotracheal tube that needs to be placed on a couple centimeters, and a left pleural effusion. Note dated February 09, 2024. 63-year-old female seen again in room 254. She remains on the ventilator. Settings are volume assist-control, rate of 30, tidal volume 350, FiO2 60%, PEEP of 8. Arterial blood gases show pO2 of 70, pCO2 of 64, pH of 7.41. Patient's peak airway pressure is 36 cm of water. The Plateau pressures 20 cm of water. The patient continues on propofol at 50 mcg/kg/min, saline at 20 cc an hour, and vital high-protein at 40, which is goal. The patient will get 1 dose of Lasix, 40 mg IV push. Current labs with a white count 17.5, with normal hemoglobin h ematocrit and platelet count. Sodium 140, potassium 4.4, chlorides 103, CO2 34, BUN 26, creatinine 0.53. Glucose is 148. Patient's chest x-ray reveals bibasilar opacities. 02/10/2024, the patient is being seen for a follow-up. The patient remains intubated on the mechanical ventilator. The patient has been COPD and the patient was treated for pneumonia on outpatient basis and subsequently she was brought into oxygen respiratory failure requiring intubation mechanical ventilation. I reviewed the CAT scan of the chest was done on this patient on 02/05/2024. There is evidence of advanced emphysema. The left hemidiaphragm is quite elevated and there may be a component of left hemidiaphragmatic paralysis. The patient has bullous emphysematous changes in upper lobes bilaterally left m ore than right. There is also a nodular density in the left apex. The patient remains intubated on the mechanical ventilator. This morning, the patient is on propofol running at 50 mcg/kg/min. She remains on assist-control mode with a rate of 30, tidal volume of 350, FiO2 of 60% with a PEEP of 8. The monitoring of blood gases showed a pH of 7.45 with a pCO2 of 60 and pO2 of 50 and based on that the PEEP was brought up to 10. The patient is on normal citrate of 20 cc an hour. The peak airway pressure is around 32. The fluid balance is -2.9 L over the past 24 hours as the patient was given diuretics. The follow-up chest x-ray from this morning shows bilateral infiltrates and small bilateral pleural effusion and bullous emphysematous changes in the lung apices bilaterally. Orogastric and orotracheal tube are all in good location. The white cell count of 13.6 with a hemoglobin 13 and a platelet count of 206. The sodium is at 140, BUN is 33 with a creatinine of 0.5. Serum bicarb is at 37. Blood sugars at 154. The patient is receiving enteral feeding for nutritional support. The patient is on Lovenox 40 mg subcu for DVT prophylaxis. The patient is on a combination of Perforomist and Pulmicort nebulized treatments twice a day, IV Solu-Medrol 60 mg every 6 hours and DuoNeb nebulized treatments [id number]. On 02/11/2024, patient is being seen for a follow-up. The patient remains on Precedex at 0.4 mcg/kg/min.. She is arousable. She was taken off this time. She was placed on assist-control again and this morning she was assist-control of 30, FiO2 of 50% with a PEEP of 8 and a tidal volume of 350. Blood gas showed a pH of 7.44 with pCO2 of 61 and pO2 of 65. Based on this morning's evaluation, I switch this patient to a pressure support mode of mechanical ventilation at rate of 15 with a PEEP of 5 and we are in the process of weaning the patient off the sedation. She is quite comfortable. The peak airway pressure while being on assist-control mode of mechanical ventilation was 25. Bronchospasm wheezing is less compared to yesterday. Chest x-ray shows some left basilar atelectasis/infiltrate. Fluid balance is -580 cc over the past 24 hours. The patient is on vital high-protein at rate of 32 cc an hour. IV fluids are currently at KVO. She remains on DuoNeb of chest. She remains on IV Solu- Medrol. The patient has a white cell count of 14.8 with a hemoglobin of 13.2 and a platelet count of 192. The patient also has a BUN of 35 with a creatinine of 0.5. Sodium levels at 141. On 02/12/2024, the patient is being seen for a follow-up. The patient was extubated on 02/11/2024 and the patient is currently on oxygen at 6 L/min nasal cannula. Awake and alert and communicating. She continues to have a deep congested cough, unable to bring up much of sputum. Repeat chest x-ray was done today and the patient has emphysematous changes with bullous disease involving the lung apices bilaterally and there is also consolidation and small left-sided pleural effusion. The patient remains on bronchodilators with DuoNeb. The patient remains on IV Rocephin. The patient remains on IV Solu-Medrol 60 mg every 6 hours. IV fluids are currently at KVO. Blood pressure remains elevated and the patient was started on a combination of lisinopril/hydrochlorothiazide. No other new complaints otherwise for now. Blood work from today shows a white cell count of 15.9, hemoglobin of 14.7 and a platelet count of 203. Electrolytes are stable. Serum bicarb is at 31, BUN is 32 with a creatinine of 0.49. Objective - Vital Signs Vital signs: Vital Signs Temp 98.3 F 02/12/24 08:00 Pulse 111 H 02/12/24 10:00 Resp 16 02/12/24 10:00 BP 193/96 02/12/24 10:00 Pulse Ox 93 L 02/12/24 10:00 FiO2 40 02/12/24 07:50 Intake & Output 02/11/24 02/12/24 02/12/24 18:59 06:59 18:59 Intake Total 593.813 255.435 150 Output Total 1400 1490 425 Balance -806.187 -1234.565 -275 Weight 81.8 kg Intake: IV 220 240 150 Potassium Chloride 10 meq 100 In Water For Injection 1 100ml.bag @ 100 mls/hr IVPB Q1H [facility] Rx#: [id number] Sodium Chloride 0.9% 1, 220 240 50 000 ml @ 20 mls/hr IV . Q24H [facility] Rx#:[id number] Intake, IV Titration 241.813 15.435 Amount Dexmedetomidine/0.9% NaCl 34.615 15.435 (Pmx) 400 mcg In Empty Bag 1 bag @ 0.2 MCG/KG/HR 4.2 mls/hr IV .[id number] [facility] Rx#:[id number] cefTRIAXone 2 gm In 50 Sodium Chloride 0.9% 50 ml @ 100 mls/hr IVPB Q24HR [facility] Rx#:[id number] propofoL 1,000 mg In 157.198 Empty Bag 1 bag @ 15 MCG/ KG/MIN 8.073 mls/hr IV . [id number] [facility] Rx#:[id number] Tube Feeding 132 Output: Urine 1400 1490 425 Other: Voiding Method Indwelling Catheter Indwelling Catheter ABP, PAP, CO, CI - Last Documented Arterial Blood Pressure 143/78 - Exam No acute distress, extubated and the patient is currently on 6 L of oxygen nasal cannula Head exam was generally normal. There was no scleral icterus or corneal arcus. Mucous membranes were moist. Neck supple. Full range of motion. No adenopathy thyromegaly or neck vein distention. Cardiovascular examination reveals regular rhythm rate. S1-S2 normal. No S3 or S4. No discernible murmur noted. Heart sounds are distant. Lungs reveal very diminished breath sounds. There is expiratory rhonchi and wheezes. Breath sounds are equal but diminished. No crackles. Abdomen is soft, without bowel sounds. No obvious masses. Extremities are intact. No cyanosis clubbing or edema. Skin is without rash or lesion. Neurologically, the patient is awake and alert and the patient does not have any focal neurological deficit. Cranial nerves are essentially intact. Motor weakness in all 4 extremities, symmetrical weakness. - Labs CBC & Chem 7: 02/12/24 05:28 02/12/24 12:37 Labs: Abnormal Lab Results - Last 24 Hours (Table) 02/11/24 02/11/24 02/11/24 Range/Units 11:51 11:57 18:12 WBC (3.8-10.6) k/uL Hct (34.0-46.0) % Neutrophils # (1.3-7.7) k/uL ABG pCO2 61 H (35-45) mmHg ABG pO2 71 L (83-108) mmHg ABG HCO3 41 H* (21-25) mmol/L ABG Total CO2 43 H (19-24) mmol/L Carbon Dioxide (22-30) mmol/L BUN (7-17) mg/dL Creatinine (0.52-1.04) mg/dL Glucose (74-99) mg/dL POC Glucose (mg/dL) 140 H 132 H (70-110) mg/dL 02/11/24 02/12/24 02/12/24 Range/Units 23:28 05:28 05:28 WBC 15.9 H (3.8-10.6) k/uL Hct 47.1 H (34.0-46.0) % Neutrophils # 13.8 H (1.3-7.7) k/uL ABG pCO2 (35-45) mmHg ABG pO2 (83-108) mmHg ABG HCO3 (21-25) mmol/L ABG Total CO2 (19-24) mmol/L Carbon Dioxide 31 H (22-30) mmol/L BUN 32 H (7-17) mg/dL Creatinine 0.49 L (0.52-1.04) mg/dL Glucose 142 H (74-99) mg/dL POC Glucose (mg/dL) 136 H (70-110) mg/dL 02/12/24 Range/Units 05:58 WBC (3.8-10.6) k/uL Hct (34.0-46.0) % Neutrophils # (1.3-7.7) k/uL ABG pCO2 (35-45) mmHg ABG pO2 (83-108) mmHg ABG HCO3 (21-25) mmol/L ABG Total CO2 (19-24) mmol/L Carbon Dioxide (22-30) mmol/L BUN (7-17) mg/dL Creatinine (0.52-1.04) mg/dL Glucose (74-99) mg/dL POC Glucose (mg/dL) 128 H (70-110) mg/dL Assessment and Plan Plan: Acute hypoxemic respiratory failure requiring intubation and mechanical ventilation, and the patient was intubated on 02/05/2024 and the patient remains on the mechanical ventilator. Review of the CAT scan of the chest shows bullous emphysematous changes with upper lobe predominance, left upper lobe pulmonary opacity/scar and the patient also has an elevated left hemidiaphragm, highly suggestive of left hemidiaphragmatic paralysis contributing to respiratory failure. The patient was extubated on 02/11/2024 and the patient is currently on 6 L of oxygen by nasal cannula. Continues to have some infiltrates in the lung base especially on the left and the patient is currently on IV Rocephin. Shortness of breath secondary to COPD Bullous emphysema with upper lobe predominance Left apical pulmonary nodule/lesion Advanced COPD/tobacco consumer and the patient has chronic hypoxic respiratory failure Bilateral lower lobe pneumonia, suspected the time of admission the patient was treated with a combination of Rocephin and Zithromax. Procalcitonin level is at 0.26. Viral screen negative. Sputum Gram stain and culture has been negative and Legionella urine antigen is also negative. Diabetes mellitus type 2 Plan Patient is extubated to 6 L of O2 nasal cannula Incentive spirometer Continue bronchodilators Continue steroids Restart IV Rocephin Repeat chest x-ray with next 24 hours Lovenox for DVT prophylaxis Patient is currently off Precedex and she is able to communicate. No altered mentation. Profound weakness in all 4 extremities. Will involve physical therapy. Case was discussed with the at the bedside. This is a critical care evaluation that was done more than 30 minutes. Time with Patient: Greater than 30
[2024-02-13 00:49] LABS: Glucose,Whole Blood 148 mg/dL (70-110)
[2024-02-13 06:13] LABS: Glucose,Whole Blood 145 mg/dL (70-110)
[2024-02-13 06:45] LABS: HCT 47.9 % (34.0-46.0); HGB 15.6 gm/dL (11.4-16.0); MCHC 32.5 g/dL (31.0-37.0); MCV 95.3 fL (80.0-100.0); Mean Platelet Volume 8.4; Platelet Count 177 k/uL (150-450); RBC 5.03 m/uL (3.80-5.40); RDW 13.9 % (11.5-15.5); WBC 18.2 k/uL (3.8-10.6)
[2024-02-13 07:07] LABS: African American GFR (CKD) >90 (>60 ml/min/1.73 sqM); Anion Gap 7 mmol/L; Blood Urea Nitrogen 31 mg/dL (7-17); Carbon Dioxide 30 mmol/L (22-30); Chloride 102 mmol/L (98-107); Glucose 161 mg/dL (74-99); Non-African American GFR(CKD) >90 (>60 ml/min/1.73 sqM); Potassium 4.2 mmol/L (3.5-5.1); Sodium 139 mmol/L (137-145)
--- NOTE | 2024-02-13 08:56 | XR ---
EXAMINATION TYPE: XR chest 1V portable DATE OF EXAM: 02/13/2024 COMPARISON: 02/12/2024 CLINICAL INDICATION: Female, 63 years old with history of increased O2 demand; TECHNIQUE: Single frontal view of the chest is obtained. FINDINGS: Upper lobe emphysematous changes. Perihilar and basilar infiltrates persist essentially un changed. Suspect small left-sided effusion. The cardiac silhouette size is within normal limits. Th e osseous structures are intact. IMPRESSION: Essentially stable chest. [facility], , 02/13/2024 8:54 AM
[2024-02-13] MEDS: FUROSEMIDE 10 MG/ML 4 ML VIAL IV SCH (10:26)
[2024-02-13] MEDS: guaiFENesin-DM 100-10MG/5ML 10 ML CUP PO PRN (11:20)
[2024-02-13 11:21] LABS: Glucose,Whole Blood 143 mg/dL (70-110)
--- NOTE | 2024-02-13 13:51 | P.PN ---
Subjective Progress Note Date: 02/13/24 This is a 63-year-old female who was transferred down from [facility]. She apparently was at [facility] yesterday, diagnosed as having pneumonia, given Omnicef 300 twice a day, discharged from the emergency department. She apparently came back today, with worsened respiratory distress, and ended up requiring intubation, and mechanical ventilation, and was shipped down to [facility]. I saw her in the emergency department, trauma room 2. She is on the mechanical ventilator. The respiratory therapist switch her from volume assist-control, because of high airway pressures to pressure assist control. Her inspiratory pressure or Pi is 20 cm of water. Her inspiratory time or Ti is 0.7 seconds. The patient is receiving 100% oxygen, with a PEEP of 5, and a rate of 14 breaths/min. She was given Rocephin and vancomycin at the outside hospital. She is currently on propofol at 10 mcg/kg/min, norepinephrine at 0.05 mcg/kg/min. She is not currently receiving any IV fluids. Current labs include a white count 33.3, hemoglobin hematocrit and platelet count all normal. Sodium 127, potassium 4, chlorides 91, CO2 31, glucose 164. Calcium 7.5. N- terminal proBNP 3140. Chest x-ray may show some bibasilar atelectasis or infiltrates. There may be concern for a small left apical pneumothorax. A CT scan was ordered. Progress note dated February 06, 2024. This is a 63-year-old female seen today in room 254. The patient remains on volume assist-control, rate 30, tidal volume 350, FiO2 70%, PEEP of 8. Blood gases show pO2 76, pCO2 65, pH is 7.39. The patient is on saline at 100 cc an hour, norepinephrine at 2 mcg/min, propofol at 35 mcg/kg/min and Nimbex at 1 mcg /kg/min, with [id number] monitoring. The patient has a history of COPD, ongoing tobacco use, lymphoma, and pneumonia. Today, an arterial line will be placed. Will start tube feedings. In addition, the patient will be started on budesonide, and formoterol, usual doses. White count 25.2, hemoglobin 14.5, hematocrit 44.2, platelet count normal. Sodium 131, potassium 4, chloride 93, CO2 35, BUN 13, creatinine 0.52. Troponins were 0.018, and 0.013. Glucose is 177. Chest x-ray shows bibasilar opacities, potentially consistent with pneumonia. Patient continues on Rocephin and azithromycin for possible community-acquired pneumonia. Progress note dated February 07, 2024. 63-year-old female seen in room 254. The patient continues on the mechanical ventilator. She is on volume assist-control, rate 30, tidal line 350, FiO2 60%, PEEP of 8. Blood gases show pO2 of 80, pCO2 of 68, pH is 7.37. The patient still has a high peak airway pressure relative to the plateau pressure, and she still quite bronchospastic. Likely not ready to wean. The patient is on propofol at 40 mcg/kg/min, saline at 100 cc an hour, and vital HP at 40 cc an hour, with a goal of 50. We will attempt a daily interruption of sedation today. The patient's procalcitonin level was 0.26. After 3 days of az ithromycin, and Rocephin, antibiotics will be discontinued. White count of 16.7, hemoglobin hematocrit and platelet count all normal. Sodium 133, potassium 3.6, chlorides 99, CO2 38, BUN 17, creatinine 0.60. Glucose is 126. Magnesium 2.6. Cultures are thus far negative. Chest x-ray shows bilateral diffuse and patchy infiltrates. Progress note dated February 08, 2024. 63-year-old female seen today in room 254. She remains on mechanical ventilator. She is on volume assist-control, rate 30, tidal line 350, FiO2 60%, PEEP of 8. Blood gases show pO2 of 69, pCO2 of 64, pH is 7.39. The patient still has a very large difference between peak airway pressure and plateau pressure. Calculated airways resistance is 16 cmH2O per liter per second. The patient is currently on propofol at 40 mcg/kg/min, saline at 100 cc an hour, and vital high-protein at 40, which is goal. Today we add some Dilaudid. The patient will not have a spontaneous breathing trial today. White count 15.7, hemoglobin 12.2, hematocrit 38.3, platelet count normal. Sodium 139, potassium 4.3, chlorides 103, CO2 38, BUN 20, creatinine 0.51. Magnesium is 2.4. Calcium 8.3. Cultures are currently negative. Chest x-ray shows an endotracheal tube that needs to be placed on a couple centimeters, and a left pleural effusion. Note dated February 09, 2024. 63-year-old female seen again in room 254. She remains on the ventilator. Settings are volume assist-control, rate of 30, tidal volume 350, FiO2 60%, PEEP of 8. Arterial blood gases show pO2 of 70, pCO2 of 64, pH of 7.41. Patient's peak airway pressure is 36 cm of water. The Plateau pressures 20 cm of water. The patient continues on propofol at 50 mcg/kg/min, saline at 20 cc an hour, and vital high-protein at 40, which is goal. The patient will get 1 dose of Lasix, 40 mg IV push. Current labs with a white count 17.5, with normal hemoglobin h ematocrit and platelet count. Sodium 140, potassium 4.4, chlorides 103, CO2 34, BUN 26, creatinine 0.53. Glucose is 148. Patient's chest x-ray reveals bibasilar opacities. 02/10/2024, the patient is being seen for a follow-up. The patient remains intubated on the mechanical ventilator. The patient has been COPD and the patient was treated for pneumonia on outpatient basis and subsequently she was brought into oxygen respiratory failure requiring intubation mechanical ventilation. I reviewed the CAT scan of the chest was done on this patient on 02/05/2024. There is evidence of advanced emphysema. The left hemidiaphragm is quite elevated and there may be a component of left hemidiaphragmatic paralysis. The patient has bullous emphysematous changes in upper lobes bilaterally left m ore than right. There is also a nodular density in the left apex. The patient remains intubated on the mechanical ventilator. This morning, the patient is on propofol running at 50 mcg/kg/min. She remains on assist-control mode with a rate of 30, tidal volume of 350, FiO2 of 60% with a PEEP of 8. The monitoring of blood gases showed a pH of 7.45 with a pCO2 of 60 and pO2 of 50 and based on that the PEEP was brought up to 10. The patient is on normal citrate of 20 cc an hour. The peak airway pressure is around 32. The fluid balance is -2.9 L over the past 24 hours as the patient was given diuretics. The follow-up chest x-ray from this morning shows bilateral infiltrates and small bilateral pleural effusion and bullous emphysematous changes in the lung apices bilaterally. Orogastric and orotracheal tube are all in good location. The white cell count of 13.6 with a hemoglobin 13 and a platelet count of 206. The sodium is at 140, BUN is 33 with a creatinine of 0.5. Serum bicarb is at 37. Blood sugars at 154. The patient is receiving enteral feeding for nutritional support. The patient is on Lovenox 40 mg subcu for DVT prophylaxis. The patient is on a combination of Perforomist and Pulmicort nebulized treatments twice a day, IV Solu-Medrol 60 mg every 6 hours and DuoNeb nebulized treatments [id number]. On 02/11/2024, patient is being seen for a follow-up. The patient remains on Precedex at 0.4 mcg/kg/min.. She is arousable. She was taken off this time. She was placed on assist-control again and this morning she was assist-control of 30, FiO2 of 50% with a PEEP of 8 and a tidal volume of 350. Blood gas showed a pH of 7.44 with pCO2 of 61 and pO2 of 65. Based on this morning's evaluation, I switch this patient to a pressure support mode of mechanical ventilation at rate of 15 with a PEEP of 5 and we are in the process of weaning the patient off the sedation. She is quite comfortable. The peak airway pressure while being on assist-control mode of mechanical ventilation was 25. Bronchospasm wheezing is less compared to yesterday. Chest x-ray shows some left basilar atelectasis/infiltrate. Fluid balance is -580 cc over the past 24 hours. The patient is on vital high-protein at rate of 32 cc an hour. IV fluids are currently at KVO. She remains on DuoNeb of chest. She remains on IV Solu- Medrol. The patient has a white cell count of 14.8 with a hemoglobin of 13.2 and a platelet count of 192. The patient also has a BUN of 35 with a creatinine of 0.5. Sodium levels at 141. On 02/12/2024, the patient is being seen for a follow-up. The patient was extubated on 02/11/2024 and the patient is currently on oxygen at 6 L/min nasal cannula. Awake and alert and communicating. She continues to have a deep congested cough, unable to bring up much of sputum. Repeat chest x-ray was done today and the patient has emphysematous changes with bullous disease involving the lung apices bilaterally and there is also consolidation and small left-sided pleural effusion. The patient remains on bronchodilators with DuoNeb. The patient remains on IV Rocephin. The patient remains on IV Solu-Medrol 60 mg every 6 hours. IV fluids are currently at KVO. Blood pressure remains elevated and the patient was started on a combination of lisinopril/hydrochlorothiazide. No other new complaints otherwise for now. Blood work from today shows a white cell count of 15.9, hemoglobin of 14.7 and a platelet count of 203. Electrolytes are stable. Serum bicarb is at 31, BUN is 32 with a creatinine of 0.49. On 02/13/2024, the patient is being seen for a follow-up. The patient was extubated on 02/11/2024 and the patient remains on 6 L of O2 nasal cannula. She does have some increased edema in all 4 extremities and the patient will be given 2 dose of Lasix 40 mg IV push. The patient is also utilizing BiPAP overnight at a pressure of 15 over 5 cm of water. She does have a congested cough. She will be started on Mucinex. She remains on bronchodilators. She remains on steroids. Her blood pressure is under better control. Awake and alert. There is ongoing generalized weakness. She is afebrile. Hemodynamically stable. Sputum Gram stain and culture of the blood culture were all negative. The white cell count is 18.2 with a hemoglobin 15.6 and a platelet count of 177. BUN 31 with a creatinine of 0.48 and a sodium levels at 139 and a potassium level is at 4.2. Awake and alert and communicating. Objective - Vital Signs Vital signs: Vital Signs Temp 98.7 F 02/13/24 08:00 Pulse 101 H 02/13/24 10:00 Resp 14 02/13/24 10:00 BP 165/95 02/13/24 09:00 Pulse Ox 92 L 02/13/24 10:00 FiO2 40 02/13/24 04:58 Intake & Output 11/27/24 11/28/24 11/28/24 18:59 06:59 18:59 Intake Total 310 240 110 Output Total 1225 810 225 Balance -915 -570 -115 Weight 81.8 kg Intake: IV 310 240 110 Potassium Chloride 10 meq 100 In Water For Injection 1 100ml.bag @ 100 mls/hr IVPB Q1H [facility] Rx#: [id number] Sodium Chloride 0.9% 1, 210 240 60 000 ml @ 20 mls/hr IV . Q24H [facility] Rx#:[id number] cefTRIAXone 2 gm In 50 Sodium Chloride 0.9% 50 ml @ 100 mls/hr IVPB Q24HR [facility] Rx#:[id number] Output: Urine 1225 810 225 Other: Voiding Method Indwelling Catheter Indwelling Catheter Indwelling Catheter ABP, PAP, CO, CI - Last Documented Arterial Blood Pressure 143/78 - Exam No acute distress, extubated and the patient is currently on 6 L of oxygen nasal cannula Head exam was generally normal. There was no scleral icterus or corneal arcus. Mucous membranes were moist. Neck supple. Full range of motion. No adenopathy thyromegaly or neck vein distention. Cardiovascular examination reveals regular rhythm rate. S1-S2 normal. No S3 or S4. No discernible murmur noted. Heart sounds are distant. Lungs reveal very diminished breath sounds. There is expiratory rhonchi and wheezes. Breath sounds are equal but diminished. No crackles. Abdomen is soft, without bowel sounds. No obvious masses. Extremities are intact. No cyanosis clubbing or edema. Skin is without rash or lesion. Neurologically, the patient is awake and alert and the patient does not have any focal neurological deficit. Cranial nerves are essentially intact. Motor weakness in all 4 extremities, symmetrical weakness. - Labs CBC & Chem 7: 02/13/24 06:13 02/13/24 06:13 Labs: Abnormal Lab Results - Last 24 Hours (Table) 02/12/24 02/12/24 02/13/24 Range/Units 11:47 16:45 00:47 WBC (3.8-10.6) k/uL Hct (34.0-46.0) % BUN (7-17) mg/dL Creatinine (0.52-1.04) mg/dL Glucose (74-99) mg/dL POC Glucose (mg/dL) 140 H 144 H 148 H (70-110) mg/dL 02/13/24 02/13/24 02/13/24 Range/Units 06:11 06:13 06:13 WBC 18.2 H (3.8-10.6) k/uL Hct 47.9 H (34.0-46.0) % BUN 31 H (7-17) mg/dL Creatinine 0.48 L (0.52-1.04) mg/dL Glucose 161 H (74-99) mg/dL POC Glucose (mg/dL) 145 H (70-110) mg/dL Assessment and Plan Plan: Acute hypoxemic respiratory failure requiring intubation and mechanical ventilation, and the patient was intubated on 02/05/2024 and the patient remains on the mechanical ventilator. Review of the CAT scan of the chest shows bullous emphysematous changes with upper lobe predominance, left upper lobe pulmonary opacity/scar and the patient also has an elevated left hemidiaphragm, highly suggestive of left hemidiaphragmatic paralysis contributing to respiratory failure. The patient was extubated on 02/11/2024 and the patient is currently on 6 L of oxygen by nasal cannula. Continues to have some infiltrates in the lung base especially on the left and the patient is currently on IV Rocephin. The patient is still utilizing BiPAP overnight at a pressure of 15 over 5 cm of water. Overall respiratory status is stable. Shortness of breath secondary to COPD Bullous emphysema with upper lobe predominance Left apical pulmonary nodule/lesion Advanced COPD/tobacco consumer and the patient has chronic hypoxic respiratory failure Bilateral lower lobe pneumonia, suspected the time of admission the patient was treated with a combination of Rocephin and Zithromax. Procalcitonin level is at 0.26. Viral screen negative. Sputum Gram stain and culture has been negative and Legionella urine antigen is also negative. Diabetes mellitus type 2 Plan Patient is still on oxygen at 6 L. Will gradually wean down FiO2 as tolerated. Incentive spirometer Continue bronchodilators Continue steroids Restart IV Rocephin Repeat chest x-ray from today shows some limited infiltration of the left lung base/atelectasis. IV Lasix 40 mg every 12 hours x 2 Lovenox for DVT prophylaxis Mucinex DM no altered mentation. Profound weakness in all 4 extremities. Will involve physical therapy. Case was discussed with the at the bedside. Patient may be able to to get transferred to the telemetry unit.
--- NOTE | 2024-02-13 15:13 | P.PN ---
Subjective Progress Note Date: 02/13/24 Principal diagnosis: Acute on chronic hypoxic respiratory failure The patient is a 63-year-old female with history of COPD 2 pack-a-day smoker who was hospitalized for altered mentation and acute hypoxic respiratory failure. The patient was intubated in the ICU. She was treated for left PTX and bilateral airspace opacities. She was treated with Rocephin azithromycin Solu-Medrol Levophed. The patient has made steady improvement echo showed EF 55 to 60%. She has an A1c of 6.3. Patient was extubated on02/10 Objective - Vital Signs Vital signs: Vital Signs Temp 97.5 F L 02/13/24 12:15 Pulse 105 H 02/13/24 12:19 Resp 17 02/13/24 12:15 BP 108/74 02/13/24 12:15 Pulse Ox 91 L 02/13/24 12:15 FiO2 40 02/13/24 04:58 Intake & Output 02/12/24 02/13/24 02/13/24 18:59 06:59 18:59 Intake Total 310 240 170 Output Total 1225 810 775 Balance -915 -570 -605 Weight 81.8 kg Intake: IV 310 240 170 Potassium Chloride 10 meq 100 In Water For Injection 1 100ml.bag @ 100 mls/hr IVPB Q1H [facility] Rx#: [id number] Sodium Chloride 0.9% 1, 210 240 120 000 ml @ 20 mls/hr IV . Q24H [facility] Rx#:[id number] cefTRIAXone 2 gm In 50 Sodium Chloride 0.9% 50 ml @ 100 mls/hr IVPB Q24HR [facility] Rx#:[id number] Output: Urine 1225 810 775 Other: Voiding Method Indwelling Catheter Indwelling Catheter Indwelling Catheter ABP, PAP, CO, CI - Last Documented Arterial Blood Pressure 143/78 - Constitutional General appearance: Present: no acute distress - Respiratory Respiratory: bilateral: rhonchi - Cardiovascular Rhythm: regular - Gastrointestinal General gastrointestinal: Present: normal bowel sounds - Psychiatric Psychiatric: Present: A&O x's 3 - Labs CBC & Chem 7: 02/13/24 06:13 02/13/24 06:13 Labs: Abnormal Lab Results - Last 24 Hours (Table) 02/12/24 02/13/24 02/13/24 Range/Units 16:45 00:47 06:11 WBC (3.8-10.6) k/uL Hct (34.0-46.0) % BUN (7-17) mg/dL Creatinine (0.52-1.04) mg/dL Glucose (74-99) mg/dL POC Glucose (mg/dL) 144 H 148 H 145 H (70-110) mg/dL 02/13/24 02/13/24 02/13/24 Range/Units 06:13 06:13 11:19 WBC 18.2 H (3.8-10.6) k/uL Hct 47.9 H (34.0-46.0) % BUN 31 H (7-17) mg/dL Creatinine 0.48 L (0.52-1.04) mg/dL Glucose 161 H (74-99) mg/dL POC Glucose (mg/dL) 143 H (70-110) mg/dL Assessment and Plan (1) Acute exacerbation of chronic obstructive pulmonary disease Current Visit: Yes Status: Acute Code(s): J44.1 - CHRONIC OBSTRUCTIVE PULMONARY DISEASE W (ACUTE) EXACERBATION SNOMED Code(s): 521225250 (2) Community acquired pneumonia Current Visit: Yes Status: Acute Code(s): J18.9 - PNEUMONIA, UNSPECIFIED ORGANISM SNOMED Code(s): 442457357 (3) Acute metabolic encephalopathy Current Visit: Yes Status: Acute Code(s): G93.41 - METABOLIC ENCEPHALOPATHY SNOMED Code(s): 75414503 (4) Respiratory failure Current Visit: Yes Status: Acute Code(s): J96.90 - RESPIRATORY FAILURE, UNSP, UNSP W HYPOXIA OR HYPERCAPNIA SNOMED Code(s): 060663155 Plan: Patient has been extubated since 02/10 and is comfortable. Slightly dyspneic with 4 words. Continue current care she is going to be transferred to the medical surgical floor. Pulmonary input.
[2024-02-13 21:23] LABS: Glucose,Whole Blood 137 mg/dL (70-110)
[2024-02-14 06:48] LABS: Glucose,Whole Blood 184 mg/dL (70-110)
[2024-02-14 10:01] LABS: Basophils # (A) 0.02 X 10*3/uL (0.00-0.10); Basophils % (A) 0.1 %; Eosinophils # (A) 0.03 X 10*3/uL (0.04-0.35); Eosinophils % (A) 0.2 %; HCT 46.3 % (37.2-46.3); HGB 14.9 g/dL (12.0-15.0); Lymphocytes # (A) 1.94 X 10*3/uL (0.90-5.00); Lymphocytes % (A) 10.2 %; MCH 30.2 pg (27.0-32.0); MCHC 32.2 g/dL (32.0-37.0); MCV 93.7 FL (80.0-97.0); Mean Platelet Volume 10.7 FL (9.5-12.2); Monocytes # (A) 0.81 X 10*3/uL (0.20-1.00); Monocytes % (A) 4.2 %; NRBC Per 100 WBC 0 X 10*3/uL (0.00-0.01); Neutrophils # (A) 16.16 X 10*3/uL (1.80-7.70); Neutrophils % (A) 84.7 %; Platelet Count 223 X 10*3/uL (140-440); RBC 4.94 X 10*6/uL (4.10-5.20); RDW 14.2 % (11.5-14.5); WBC 19.08 X 10*3/uL (4.50-10.00)
[2024-02-14 10:09] LABS: BUN/Creat Ratio 48.71 Ratio (12.00-20.00); Blood Urea Nitrogen 34.1 mg/dL (9.0-27.0); Glucose 187 mg/dL (70-110)
[2024-02-14 10:10] LABS: Calcium 9.1 mg/dL (8.7-10.3); Carbon Dioxide 29.7 mmol/L (21.6-31.8); Chloride 99 mmol/L (96-109); Potassium 3.7 mmol/L (3.5-5.5); Sodium 142 mmol/L (135-145)
[2024-02-14] MEDS: bisacodyL 10 MG SUPP RECTAL STA (10:13)
--- NOTE | 2024-02-14 10:58 | P.PN ---
Subjective Progress Note Date: 02/10/24 Principal diagnosis: 63 year old F with PMH of COPD smoking 2PPD presents to the ED for altered mentation and acute hypoxic respiratory failure. Her is at bedside providing history. Patient has a chronic dry cough. However, over the past 2 weeks her cough has been more productive described as glue. She was admitted at [place] 2 days ago for COPD exacerbation and bilateral pneumonia. Patient requested to go home, and she was discharged on 4L NC, steroids and antibiotics. Since then, she has progressively worsened. She initially presented to [facility]. She was intubated and transferred to [facility] for higher level of care. Initial BP 114/69, T 96.8F, HR 87, RR 20, 100%, mechanically intubated. CBC, Coag panel, CMP significant for WBC 33.3, Na 127, Cl 91, bicarb 31, glu 164, Ca 7.5. Lactic acid 1.5. Mag 1.9. BNP 3140. CXR concerning for L PTX, bibasilar airspace opacities. Chest CT no PTX, severe emphysema, bibasilar atelectasis, right adrenal nodule, elevated L diaphragm, mild pectus excavatum. Started on Rocephin, Azithromycin, SoluMedrol, Levophed and admitted to ICU for further workup and management. 02/05 Patient was seen and examined. Currently on Nimbex at 2 mcg/kg/min and Propofol at 35 mcg/kg/min. Pressors include Levophed at 0.04 mcg/kg/min. Antibiotics include Rocephin and Azithromycin. CBC and BMP significant for WBC 25.2, Na 131, Cl 93, bicarb 35, glu 183, Ca 8.3. Mag 2.3. EKG shows sinus rhythm with no ST T wave changes. COVID, RSV, Flu neg. CXR with bibasilar opacities. 02/06 Patient was seen and examined. Currently on Propofol at 50 mcg/kg/min. Levophed has been weaned off. Antibiotics include Rocephin 2g IV QD and Azithromycin 500 mg IV QD. CBC and BMP significant for WBC 16.7, Na 133, bicarb 38, glu 163, Ca 8.2. Mag 2.6. Echo shows EF 55-60%. Procal is 0.26. A1c is 6.3. Sputum Cx few PMN, rare GPC and GNB. BCx neg at 24H. Troponin 0.018, 0.013. CXR remains stable to yesterdays CXR. 02/07 Patient was seen and examined. Currently on Propofol at 50 mcg/kg/min. Completed 3 days of Rocephin and Azithromycin. CBC and BMP significant for WBC 15.7, bicarb 38, BUN 20, Cr 0.51, glu 160, Ca 8.3. Mag 2.4. Sputum Cx growing respiratory ольга. BCx neg at 48H. CXR remains stable to yesterdays CXR with the addition of small left pleural effusion. 02/08 Patient was seen and examined. Currently on Propofol at 50 mcg/kg/min. CBC and BMP significant for WBC 17.5, bicarb 34, BUN 26, glu 174. BCx neg at 72H. CXR done today shows bibasilar opacities. 02/09: Remains intubated on fio2 60% with peep of 10. Remains sedated on propofol and on enteral feeding. ABG this am showing pH of 7.45 with a pco2 of 66,. 02/10: Patient seen and examined at bedside, currently on CPAP trial, sedation resolved, patient is awake responsive to command, able to give 2 thumbs up possible extubation today Objective - Vital Signs Vital signs: Vital Signs Temp 99.2 F 02/10/24 04:00 Pulse 74 02/10/24 08:15 Resp 30 H 02/10/24 07:00 BP 142/80 02/10/24 07:00 Pulse Ox 93 L 02/10/24 07:00 FiO2 60 02/10/24 08:17 Intake & Output 02/09/24 02/10/24 02/10/24 18:59 06:59 18:59 Intake Total 593.524 4981.361 256 Output Total 3900 1260 225 Balance -2924.600 -73.639 31 Weight 85 kg Intake: IV 276 276 46 Pressure Bag (0.9 Sodium 36 36 6 Chloride) Sodium Chloride 0.9% 1, 240 240 40 000 ml @ 20 mls/hr IV . Q24H COUNT INCLUDES THE [facility] Rx#:[id number] Intake, IV Titration 279.400 310.361 100 Amount propofoL 1,000 mg In 279.400 310.361 100 Empty Bag 1 bag @ 15 MCG/ KG/MIN 8.073 mls/hr IV . [id number] COUNT INCLUDES THE [facility] Rx#:[id number] Tube Feeding 360 480 80 Other 60 120 30 Output: Urine 3900 1260 225 Other: Voiding Method Indwelling Catheter Indwelling Catheter ABP, PAP, CO, CI - Last Documented Arterial Blood Pressure 143/78 - Exam General: Intubated, female, appears stated age. R ij Cvcc Derm: warm, dry Head: atraumatic, normocephalic, symmetric Eyes: no lid lag, anicteric sclera Mouth: no lip lesion, mucus membranes moist Cardiovascular: S1S2 reg, no murmur Lungs: Decreased BS bilateral, no rhonchi, no rales on mechanical ventilation Abdominal: soft, non tender to palpation Ext: no gross muscle atrophy, no edema, no contractures Neuro: Unable to determine as sedated Psych: Unable to determine as sedated - Labs CBC & Chem 7: 02/10/24 05:24 02/10/24 05:24 Labs: Abnormal Lab Results - Last 24 Hours (Table) 02/09/24 02/09/24 02/09/24 Range/Units 11:29 17:16 23:28 WBC (3.8-10.6) k/uL Neutrophils # (1.3-7.7) k/uL ABG pCO2 (35-45) mmHg ABG pO2 (83-108) mmHg ABG HCO3 (21-25) mmol/L ABG Total CO2 (19-24) mmol/L ABG O2 Saturation (94-97) % Chloride (98-107) mmol/L Carbon Dioxide (22-30) mmol/L BUN (7-17) mg/dL Creatinine (0.52-1.04) mg/dL Glucose (74-99) mg/dL POC Glucose (mg/dL) 148 H 150 H 170 H (70-110) mg/dL 02/10/24 02/10/24 02/10/24 Range/Units 04:38 05:24 05:24 WBC 13.6 H (3.8-10.6) k/uL Neutrophils # 11.7 H (1.3-7.7) k/uL ABG pCO2 66 H (35-45) mmHg ABG pO2 58 L* (83-108) mmHg ABG HCO3 46 H* (21-25) mmol/L ABG Total CO2 48 H (19-24) mmol/L ABG O2 Saturation 90.9 L (94-97) % Chloride 97 L (98-107) mmol/L Carbon Dioxide 37 H (22-30) mmol/L BUN 33 H (7-17) mg/dL Creatinine 0.51 L (0.52-1.04) mg/dL Glucose 156 H (74-99) mg/dL POC Glucose (mg/dL) (70-110) mg/dL 02/10/24 Range/Units 05:49 WBC (3.8-10.6) k/uL Neutrophils # (1.3-7.7) k/uL ABG pCO2 (35-45) mmHg ABG pO2 (83-108) mmHg ABG HCO3 (21-25) mmol/L ABG Total CO2 (19-24) mmol/L ABG O2 Saturation (94-97) % Chloride (98-107) mmol/L Carbon Dioxide (22-30) mmol/L BUN (7-17) mg/dL Creatinine (0.52-1.04) mg/dL Glucose (74-99) mg/dL POC Glucose (mg/dL) 154 H (70-110) mg/dL Microbiology - Last 24 Hours (Table) 02/05/24 20:04 Blood Culture - Preliminary Blood 02/05/24 19:52 Blood Culture - Preliminary Blood Assessment and Plan Assessment: Acute metabolic encephalopathy likely due to below Acute hypoxic respiratory failure likely due to below: ACS has been ruled out. Improving Acute COPD exacerbation: SoluMedrol 60 mg IV Q6H. DuoNeb QID scheduled and Q2H PRN for SOB/wheezing. Pulmicort 1 mg INH BID. Telemetry monitoring. Pulmonary on board. Vent day 7, currently on minimal vent settings, CPAP trial initiated, maintaining oxygen saturation above 97%, wake and alert, responsive to commands, possible extubation today. Septic shock secondary to bilateral pnuemonia: Completed 3 days of Rocephin and Azithromcyin. Procal 0.26. Legionella Ag, COVID/RSV/Flu neg. Sputum Cx respiratory ольга. BCx prelim neg. IVF to KVO Metabolic alkalosis as compensation for respiratory acidosis Diabetes mellitus: A1c 6.3. ISS Q6H. Accuchecks q6hr. Continue enteral feeding at 40 cc/hr. Hypona: resolved 02/11 Patient seen and examined at bedside She was successfully extubated to BiPAP and transition to nasal cannula She is approximately 6 L nasal cannula satting 93%, no conversational dyspnea noted Discussed with family at bedside Prior to her hospitalization, she came to the ER due to shortness of breath, she was discharged on 4 L nasal cannula, she ended up subsequently coming back to the hospital similar day after losing passing out, this led to the series of events of her b requiring intubation Plan is to continue to wean patient down to minimal oxygen Maintain oxygen saturation greater than 92% and no COPD patient Encourage ambulation Not stable for discharge. 02/13 Patient seen and examined at bedside She is down to 4 L nasal cannula She does not use oxygen at baseline, however she was placed on 6 L prior to coming to the hospital by the ER staff Plan is to continue weaning oxygen as tolerated Pulmonology is on board, appreciate recommendations Dulcolax suppository ordered Vital signs stable otherwise CODE STATUS: FULL CODE DVT Prophylaxis: Lovenox SQ GI Prophylaxis: Protonix IV Designated medical POA if patient is not able to make medical decisions for themselves: . I have reviewed the following functional consultant notes: Pulmonary note. I have reviewed the results of the following tests: CBC, BMP, ABG I have ordered the following tests: I have discussed the care of this patient with the following independent historian: I have independently interpreted the following test below: CXR I have discussed the management of this patient with the following physician: Time with Patient: Greater than 30 Objective - Vital Signs Vital signs: Vital Signs Temp 97.5 F L 02/14/24 07:44 Pulse 101 H 02/14/24 07:44 Resp 18 02/14/24 07:44 BP 110/70 02/14/24 07:44 Pulse Ox 90 L 02/14/24 07:44 FiO2 40 02/14/24 04:22 Intake & Output 02/13/24 02/14/24 02/14/24 18:59 06:59 18:59 Intake Total 170 Output Total 1600 1400 Balance -1430 -1400 Weight 71.5 kg Intake: IV 170 Sodium Chloride 0.9% 1, 120 000 ml @ 20 mls/hr IV . Q24H [facility] Rx#:[id number] cefTRIAXone 2 gm In 50 Sodium Chloride 0.9% 50 ml @ 100 mls/hr IVPB Q24HR [facility] Rx#:[id number] Output: Urine 1600 1400 Other: Voiding Method Indwelling Catheter Indwelling Catheter ABP, PAP, CO, CI - Last Documented Arterial Blood Pressure 143/78 - Labs CBC & Chem 7: 02/14/24 02:54 02/14/24 02:54 Labs: Abnormal Lab Results - Last 24 Hours (Table) 02/13/24 02/13/24 02/14/24 Range/Units 11:19 21:21 02:54 WBC 19.08 H (4.50-10.00) X 10*3/uL Immature Gran # 0.12 H (0.00-0.04) X 10*3/uL Neutrophils # 16.16 H (1.80-7.70) X 10*3/uL Eosinophils # 0.03 L (0.04-0.35) X 10*3/uL Anion Gap (4.00-12.00) mmol/L BUN (9.0-27.0) mg/dL BUN/Creatinine Ratio (12.00-20.00) Ratio Glucose (70-110) mg/dL POC Glucose (mg/dL) 143 H 137 H (70-110) mg/dL 02/14/24 02/14/24 Range/Units 02:54 06:46 WBC (4.50-10.00) X 10*3/uL Immature Gran # (0.00-0.04) X 10*3/uL Neutrophils # (1.80-7.70) X 10*3/uL Eosinophils # (0.04-0.35) X 10*3/uL Anion Gap 13.30 H (4.00-12.00) mmol/L BUN 34.1 H (9.0-27.0) mg/dL BUN/Creatinine Ratio 48.71 H (12.00-20.00) Ratio Glucose 187 H (70-110) mg/dL POC Glucose (mg/dL) 184 H (70-110) mg/dL
[2024-02-14 11:27] LABS: Glucose,Whole Blood 259 mg/dL (70-110)
[2024-02-14 11:33] VITALS: BMI 25.4
[2024-02-14 16:39] LABS: Glucose,Whole Blood 137 mg/dL (70-110)
[2024-02-14 17:47] LABS: Glucose,Whole Blood 195 mg/dL (70-110)
--- NOTE | 2024-02-14 18:33 | P.PN ---
Subjective Progress Note Date: 02/14/24 This is a 63-year-old female who was transferred down from [facility]. She apparently was at [place] yesterday, diagnosed as having pneumonia, given Omnicef 300 twice a day, discharged from the emergency department. She apparently came back today, with worsened respiratory distress, and ended up requiring intubation, and mechanical ventilation, and was shipped down to [facility]. I saw her in the emergency department, trauma room 2. She is on the mechanical ventilator. The respiratory therapist switch her from volume assist-control, because of high airway pressures to pressure assist control. Her inspiratory pressure or Pi is 20 cm of water. Her inspiratory time or Ti is 0.7 seconds. The patient is receiving 100% oxygen, with a PEEP of 5, and a rate of 14 breaths/min. She was given Rocephin and vancomycin at the outside hospital. She is currently on propofol at 10 mcg/kg/min, norepinephrine at 0.05 mcg/kg/min. She is not currently receiving any IV fluids. Current labs include a white count 33.3, hemoglobin hematocrit and platelet count all normal. Sodium 127, potassium 4, chlorides 91, CO2 31, glucose 164. Calcium 7.5. N- terminal proBNP 3140. Chest x-ray may show some bibasilar atelectasis or infiltrates. There may be concern for a small left apical pneumothorax. A CT scan was ordered. Progress note dated February 06, 2024. This is a 63-year-old female seen today in room 254. The patient remains on volume assist-control, rate 30, tidal volume 350, FiO2 70%, PEEP of 8. Blood gases show pO2 76, pCO2 65, pH is 7.39. The patient is on saline at 100 cc an hour, norepinephrine at 2 mcg/min, propofol at 35 mcg/kg/min and Nimbex at 1 mcg /kg/min, with [id number] monitoring. The patient has a history of COPD, ongoing tobacco use, lymphoma, and pneumonia. Today, an arterial line will be placed. Will start tube feedings. In addition, the patient will be started on budesonide, and formoterol, usual doses. White count 25.2, hemoglobin 14.5, hematocrit 44.2, platelet count normal. Sodium 131, potassium 4, chloride 93, CO2 35, BUN 13, creatinine 0.52. Troponins were 0.018, and 0.013. Glucose is 177. Chest x-ray shows bibasilar opacities, potentially consistent with pneumonia. Patient continues on Rocephin and azithromycin for possible community-acquired pneumonia. Progress note dated February 07, 2024. 63-year-old female seen in room 254. The patient continues on the mechanical ventilator. She is on volume assist-control, rate 30, tidal line 350, FiO2 60%, PEEP of 8. Blood gases show pO2 of 80, pCO2 of 68, pH is 7.37. The patient still has a high peak airway pressure relative to the plateau pressure, and she still quite bronchospastic. Likely not ready to wean. The patient is on propofol at 40 mcg/kg/min, saline at 100 cc an hour, and vital HP at 40 cc an hour, with a goal of 50. We will attempt a daily interruption of sedation today. The patient's procalcitonin level was 0.26. After 3 days of az ithromycin, and Rocephin, antibiotics will be discontinued. White count of 16.7, hemoglobin hematocrit and platelet count all normal. Sodium 133, potassium 3.6, chlorides 99, CO2 38, BUN 17, creatinine 0.60. Glucose is 126. Magnesium 2.6. Cultures are thus far negative. Chest x-ray shows bilateral diffuse and patchy infiltrates. Progress note dated February 08, 2024. 63-year-old female seen today in room 254. She remains on mechanical ventilator. She is on volume assist-control, rate 30, tidal line 350, FiO2 60%, PEEP of 8. Blood gases show pO2 of 69, pCO2 of 64, pH is 7.39. The patient still has a very large difference between peak airway pressure and plateau pressure. Calculated airways resistance is 16 cmH2O per liter per second. The patient is currently on propofol at 40 mcg/kg/min, saline at 100 cc an hour, and vital high-protein at 40, which is goal. Today we add some Dilaudid. The patient will not have a spontaneous breathing trial today. White count 15.7, hemoglobin 12.2, hematocrit 38.3, platelet count normal. Sodium 139, potassium 4.3, chlorides 103, CO2 38, BUN 20, creatinine 0.51. Magnesium is 2.4. Calcium 8.3. Cultures are currently negative. Chest x-ray shows an endotracheal tube that needs to be placed on a couple centimeters, and a left pleural effusion. Note dated February 09, 2024. 63-year-old female seen again in room 254. She remains on the ventilator. Settings are volume assist-control, rate of 30, tidal volume 350, FiO2 60%, PEEP of 8. Arterial blood gases show pO2 of 70, pCO2 of 64, pH of 7.41. Patient's peak airway pressure is 36 cm of water. The Plateau pressures 20 cm of water. The patient continues on propofol at 50 mcg/kg/min, saline at 20 cc an hour, and vital high-protein at 40, which is goal. The patient will get 1 dose of Lasix, 40 mg IV push. Current labs with a white count 17.5, with normal hemoglobin h ematocrit and platelet count. Sodium 140, potassium 4.4, chlorides 103, CO2 34, BUN 26, creatinine 0.53. Glucose is 148. Patient's chest x-ray reveals bibasilar opacities. 02/10/2024, the patient is being seen for a follow-up. The patient remains intubated on the mechanical ventilator. The patient has been COPD and the patient was treated for pneumonia on outpatient basis and subsequently she was brought into oxygen respiratory failure requiring intubation mechanical ventilation. I reviewed the CAT scan of the chest was done on this patient on 02/05/2024. There is evidence of advanced emphysema. The left hemidiaphragm is quite elevated and there may be a component of left hemidiaphragmatic paralysis. The patient has bullous emphysematous changes in upper lobes bilaterally left m ore than right. There is also a nodular density in the left apex. The patient remains intubated on the mechanical ventilator. This morning, the patient is on propofol running at 50 mcg/kg/min. She remains on assist-control mode with a rate of 30, tidal volume of 350, FiO2 of 60% with a PEEP of 8. The monitoring of blood gases showed a pH of 7.45 with a pCO2 of 60 and pO2 of 50 and based on that the PEEP was brought up to 10. The patient is on normal citrate of 20 cc an hour. The peak airway pressure is around 32. The fluid balance is -2.9 L over the past 24 hours as the patient was given diuretics. The follow-up chest x-ray from this morning shows bilateral infiltrates and small bilateral pleural effusion and bullous emphysematous changes in the lung apices bilaterally. Orogastric and orotracheal tube are all in good location. The white cell count of 13.6 with a hemoglobin 13 and a platelet count of 206. The sodium is at 140, BUN is 33 with a creatinine of 0.5. Serum bicarb is at 37. Blood sugars at 154. The patient is receiving enteral feeding for nutritional support. The patient is on Lovenox 40 mg subcu for DVT prophylaxis. The patient is on a combination of Perforomist and Pulmicort nebulized treatments twice a day, IV Solu-Medrol 60 mg every 6 hours and DuoNeb nebulized treatments [id number]. On 02/11/2024, patient is being seen for a follow-up. The patient remains on Precedex at 0.4 mcg/kg/min.. She is arousable. She was taken off this time. She was placed on assist-control again and this morning she was assist-control of 30, FiO2 of 50% with a PEEP of 8 and a tidal volume of 350. Blood gas showed a pH of 7.44 with pCO2 of 61 and pO2 of 65. Based on this morning's evaluation, I switch this patient to a pressure support mode of mechanical ventilation at rate of 15 with a PEEP of 5 and we are in the process of weaning the patient off the sedation. She is quite comfortable. The peak airway pressure while being on assist-control mode of mechanical ventilation was 25. Bronchospasm wheezing is less compared to yesterday. Chest x-ray shows some left basilar atelectasis/infiltrate. Fluid balance is -580 cc over the past 24 hours. The patient is on vital high-protein at rate of 32 cc an hour. IV fluids are currently at KVO. She remains on DuoNeb of chest. She remains on IV Solu- Medrol. The patient has a white cell count of 14.8 with a hemoglobin of 13.2 and a platelet count of 192. The patient also has a BUN of 35 with a creatinine of 0.5. Sodium levels at 141. On 02/12/2024, the patient is being seen for a follow-up. The patient was extubated on 02/11/2024 and the patient is currently on oxygen at 6 L/min nasal cannula. Awake and alert and communicating. She continues to have a deep congested cough, unable to bring up much of sputum. Repeat chest x-ray was done today and the patient has emphysematous changes with bullous disease involving the lung apices bilaterally and there is also consolidation and small left-sided pleural effusion. The patient remains on bronchodilators with DuoNeb. The patient remains on IV Rocephin. The patient remains on IV Solu-Medrol 60 mg every 6 hours. IV fluids are currently at KVO. Blood pressure remains elevated and the patient was started on a combination of lisinopril/hydrochlorothiazide. No other new complaints otherwise for now. Blood work from today shows a white cell count of 15.9, hemoglobin of 14.7 and a platelet count of 203. Electrolytes are stable. Serum bicarb is at 31, BUN is 32 with a creatinine of 0.49. On 02/13/2024, the patient is being seen for a follow-up. The patient was extubated on 02/11/2024 and the patient remains on 6 L of O2 nasal cannula. She does have some increased edema in all 4 extremities and the patient will be given 2 dose of Lasix 40 mg IV push. The patient is also utilizing BiPAP overnight at a pressure of 15 over 5 cm of water. She does have a congested cough. She will be started on Mucinex. She remains on bronchodilators. She remains on steroids. Her blood pressure is under better control. Awake and alert. There is ongoing generalized weakness. She is afebrile. Hemodynamically stable. Sputum Gram stain and culture of the blood culture were all negative. The white cell count is 18.2 with a hemoglobin 15.6 and a platelet count of 177. BUN 31 with a creatinine of 0.48 and a sodium levels at 139 and a potassium level is at 4.2. Awake and alert and communicating. On 02/14/2024, the patient is doing well. No specific complaints. She reports improvement in her shortness of breath. She is currently on oxygen 4 L/min nasal cannula. Remains on DuoNeb nebulized treatments [id number]. Remains on a [facility]. Remains on IV Solu-Medrol. IV fluids are currently at KVO. No signs of any CO2 narcosis. The white cell count of 19 with a hemoglobin of 14.9 and a platelet count of 223. Rest of the electrolytes are stable. BUN 34 with a creatinine of 0.7. Electrolytes are all within normal limits. She is trying to increase level of activity as tolerated. She denies having any new complaints for now. She is using the BiPAP overnight. Objective - Vital Signs Vital signs: Vital Signs Temp 97.5 F L 02/14/24 07:44 Pulse 101 H 02/14/24 07:44 Resp 18 02/14/24 07:44 BP 110/70 02/14/24 07:44 Pulse Ox 90 L 02/14/24 07:44 FiO2 40 02/14/24 04:22 Intake & Output 02/13/24 02/14/24 02/14/24 18:59 06:59 18:59 Intake Total 170 Output Total 1600 1400 Balance -1430 -1400 Weight 71.5 kg 71.5 kg Intake: IV 170 Sodium Chloride 0.9% 1, 120 000 ml @ 20 mls/hr IV . Q24H ELIZABETH Rx#:[id number] cefTRIAXone 2 gm In 50 Sodium Chloride 0.9% 50 ml @ 100 mls/hr IVPB Q24HR ELIZABETH Rx#:[id number] Output: Urine 1600 1400 Other: Voiding Method Indwelling Catheter Indwelling Catheter ABP, PAP, CO, CI - Last Documented Arterial Blood Pressure 143/78 - Exam No acute distress, extubated and the patient is currently on 4 L of oxygen nasal cannula Head exam was generally normal. There was no scleral icterus or corneal arcus. Mucous membranes were moist. Neck supple. Full range of motion. No adenopathy thyromegaly or neck vein distention. Cardiovascular examination reveals regular rhythm rate. S1-S2 normal. No S3 or S4. No discernible murmur noted. Heart sounds are distant. Lungs reveal very diminished breath sounds. There is expiratory rhonchi and wheezes. Breath sounds are equal but diminished. No crackles. Abdomen is soft, without bowel sounds. No obvious masses. Extremities are intact. No cyanosis clubbing or edema. Skin is without rash or lesion. Neurologically, the patient is awake and alert and the patient does not have any focal neurological deficit. Cranial nerves are essentially intact. Motor weakness in all 4 extremities, symmetrical weakness. - Labs CBC & Chem 7: 02/14/24 02:54 02/14/24 02:54 Labs: Abnormal Lab Results - Last 24 Hours (Table) 02/13/24 02/14/24 02/14/24 Range/Units 21:21 02:54 02:54 WBC 19.08 H (4.50-10.00) X 10*3/uL Immature Gran # 0.12 H (0.00-0.04) X 10*3/uL Neutrophils # 16.16 H (1.80-7.70) X 10*3/uL Eosinophils # 0.03 L (0.04-0.35) X 10*3/uL Anion Gap 13.30 H (4.00-12.00) mmol/L BUN 34.1 H (9.0-27.0) mg/dL BUN/Creatinine Ratio 48.71 H (12.00-20.00) Ratio Glucose 187 H (70-110) mg/dL POC Glucose (mg/dL) 137 H (70-110) mg/dL 02/14/24 02/14/24 Range/Units 06:46 11:25 WBC (4.50-10.00) X 10*3/uL Immature Gran # (0.00-0.04) X 10*3/uL Neutrophils # (1.80-7.70) X 10*3/uL Eosinophils # (0.04-0.35) X 10*3/uL Anion Gap (4.00-12.00) mmol/L BUN (9.0-27.0) mg/dL BUN/Creatinine Ratio (12.00-20.00) Ratio Glucose (70-110) mg/dL POC Glucose (mg/dL) 184 H 259 H (70-110) mg/dL Assessment and Plan Plan: Acute hypoxemic respiratory failure requiring intubation and mechanical ventilation, and the patient was intubated on 02/05/2024 and the patient remains on the mechanical ventilator. Review of the CAT scan of the chest shows bullous emphysematous changes with upper lobe predominance, left upper lobe pulmonary opacity/scar and the patient also has an elevated left hemidiaphragm, highly suggestive of left hemidiaphragmatic paralysis contributing to respiratory failure. The patient was extubated on 02/11/2024 and the patient is currently on 4 L of oxygen by nasal cannula. Continues to have some infiltrates in the lung base especially on the left and the patient is currently on IV Rocephin. The patient is still utilizing BiPAP overnight at a pressure of 15 over 5 cm of water. Overall respiratory status is stable. Shortness of breath secondary to COPD Bullous emphysema with upper lobe predominance Left apical pulmonary nodule/lesion Advanced COPD/tobacco consumer and the patient has chronic hypoxic respiratory failure Bilateral lower lobe pneumonia, suspected the time of admission the patient was treated with a combination of Rocephin and Zithromax. Procalcitonin level is at 0.26. Viral screen negative. Sputum Gram stain and culture has been negative and Legionella urine antigen is also negative. Diabetes mellitus type 2 Hypertension, controlled on a combination of lisinopril hydrochlorothiazide Plan Patient is still on oxygen at 4 L. Will gradually wean down FiO2 as tolerated. Incentive spirometer Continue bronchodilators, DuoNeb of chest, Perforomist and Pulmicort and the patient is also on IV Rocephin Continue steroids, will transition this patient to oral prednisone as of tomorrow Lovenox for DVT prophylaxis Mucinex DM No altered mentation. Weakness is improving and the patient is increasing her level of activity as tolerated Continue working with physical therapy
[2024-02-14 21:42] LABS: Glucose,Whole Blood 209 mg/dL (70-110)
[2024-02-15 00:01] LABS: Glucose,Whole Blood 185 mg/dL (70-110)
[2024-02-15 05:51] LABS: Glucose,Whole Blood 183 mg/dL (70-110)
[2024-02-15 11:39] LABS: Glucose,Whole Blood 213 mg/dL (70-110)
[2024-02-15] MEDS: predniSONE 20 MG TAB PO SCH (12:54)
--- NOTE | 2024-02-15 14:34 | P.PN ---
Subjective Progress Note Date: 02/15/24 (delayed charting seen at 1230) Patient is a 63-year-old female with COPD, tobacco use, and prior pneumonia is admitted on 02/04 with acute exacerbation of COPD, pneumonia, septic shock, acute metabolic encephalopathy, acute hypoxic respiratory failure, and hyponatremia. Patient seen and examined at bedside. Doing better. Eating and drinking well. No nausea or vomiting. No shortness of breath. Right arm swelling. Vital signs reviewed General: Nontoxic, no distress, appears at stated age Cardiovascular: S1S2 reg, no murmur Lungs: Coarse breath sounds bilaterally, no rhonchi, no rales, no accessory muscle use Abdominal: Soft, nontender to palpation, no guarding Ext: No gross muscle atrophy, no edema b/l lower extremities, left upper extremity edema, no contractures Neuro: CN II-XI grossly intact, no focal neuro deficits Psych: Alert, oriented, appropriate affect Assessment/Plan: Pneumonia with septic shock-last dose of antibiotics 02/14 Acute metabolic encephalopathy, resolved Acute exacerbation of COPD, improving Acute hypoxic respiratory failure -Continue to wean O2 as able currently on 5 L nasal cannula -Plan is for discharge with CPAP per patient -Pulmonary recommendations -DuoNeb 4 times daily and as needed -Pulmicort via neb twice daily, perforomist via neb twice daily -Stop Protonix -DC methylprednisolone and start prednisone 40 mg daily -Augmentin for 2 doses then will have completed antibiotics Prediabetes with hyperglycemia likely secondary to steroids -Continue sliding scale insulin -Follow blood sugars -A1c 6.3. Likely would benefit from oral medication on discharge pending how blood sugars run off of IV steroids Left arm swelling -Elevate arm -If no improvement in a.m. consider ultrasound Tobacco use -Cessation Hypertension, improved -Lisinopril 20 mg and hydrochlorothiazide 12.5 mg daily -Follow-up blood pressures Imaging: None new Data Review: None new, repeat CBC in a.m. due to increasing white blood cell count DVT prophylaxis: Lovenox Anticipated discharge date: Home with home care on 02/16 This dictation was prepared using [employer] voice recognition software. Though every attempt is made to correct errors during dictation some may still exist. Objective - Vital Signs Vital signs: Vital Signs Temp 97.7 F 02/15/24 07:13 Pulse 84 02/15/24 13:41 Resp 16 02/15/24 07:13 BP 121/80 02/15/24 07:13 Pulse Ox 90 L 02/15/24 07:13 FiO2 40 02/15/24 04:35 Intake & Output 02/14/24 02/15/24 02/15/24 18:59 06:59 18:59 Intake Total 480 Balance 480 Weight 71.5 kg 75 kg Intake: Oral 480 Other: Voiding Method Indwelling Catheter Bedside Commode Bedside Commode # Voids 3 2 1 # Bowel Movements 2 ABP, PAP, CO, CI - Last Documented Arterial Blood Pressure 143/78 - Labs CBC & Chem 7: 02/14/24 02:54 02/14/24 02:54 Labs: Abnormal Lab Results - Last 24 Hours (Table) 02/14/24 02/14/24 02/14/24 Range/Units 16:38 17:36 21:41 POC Glucose (mg/dL) 137 H 195 H 209 H (70-110) mg/dL 02/14/24 02/15/24 02/15/24 Range/Units 23:59 05:50 11:37 POC Glucose (mg/dL) 185 H 183 H 213 H (70-110) mg/dL
[2024-02-15] MEDS: AMOXIC-POT CLAV 875-125MG 1 EACH TAB PO SCH (15:20)
--- NOTE | 2024-02-15 15:35 | P.PN ---
Subjective Progress Note Date: 02/15/24 This is a 63-year-old female who was transferred down from [facility]. She apparently was at [place] yesterday, diagnosed as having pneumonia, given Omnicef 300 twice a day, discharged from the emergency department. She apparently came back today, with worsened respiratory distress, and ended up requiring intubation, and mechanical ventilation, and was shipped down to [facility]. I saw her in the emergency department, trauma room 2. She is on the mechanical ventilator. The respiratory therapist switch her from volume assist-control, because of high airway pressures to pressure assist control. Her inspiratory pressure or Pi is 20 cm of water. Her inspiratory time or Ti is 0.7 seconds. The patient is receiving 100% oxygen, with a PEEP of 5, and a rate of 14 breaths/min. She was given Rocephin and vancomycin at the outside hospital. She is currently on propofol at 10 mcg/kg/min, norepinephrine at 0.05 mcg/kg/min. She is not currently receiving any IV fluids. Current labs include a white count 33.3, hemoglobin hematocrit and platelet count all normal. Sodium 127, potassium 4, chlorides 91, CO2 31, glucose 164. Calcium 7.5. N- terminal proBNP 3140. Chest x-ray may show some bibasilar atelectasis or infiltrates. There may be concern for a small left apical pneumothorax. A CT scan was ordered. Progress note dated February 06, 2024. This is a 63-year-old female seen today in room 254. The patient remains on volume assist-control, rate 30, tidal volume 350, FiO2 70%, PEEP of 8. Blood gases show pO2 76, pCO2 65, pH is 7.39. The patient is on saline at 100 cc an hour, norepinephrine at 2 mcg/min, propofol at 35 mcg/kg/min and Nimbex at 1 mcg /kg/min, with [id number] monitoring. The patient has a history of COPD, ongoing tobacco use, lymphoma, and pneumonia. Today, an arterial line will be placed. Will start tube feedings. In addition, the patient will be started on budesonide, and formoterol, usual doses. White count 25.2, hemoglobin 14.5, hematocrit 44.2, platelet count normal. Sodium 131, potassium 4, chloride 93, CO2 35, BUN 13, creatinine 0.52. Troponins were 0.018, and 0.013. Glucose is 177. Chest x-ray shows bibasilar opacities, potentially consistent with pneumonia. Patient continues on Rocephin and azithromycin for possible community-acquired pneumonia. Progress note dated February 07, 2024. 63-year-old female seen in room 254. The patient continues on the mechanical ventilator. She is on volume assist-control, rate 30, tidal line 350, FiO2 60%, PEEP of 8. Blood gases show pO2 of 80, pCO2 of 68, pH is 7.37. The patient still has a high peak airway pressure relative to the plateau pressure, and she still quite bronchospastic. Likely not ready to wean. The patient is on propofol at 40 mcg/kg/min, saline at 100 cc an hour, and vital HP at 40 cc an hour, with a goal of 50. We will attempt a daily interruption of sedation today. The patient's procalcitonin level was 0.26. After 3 days of az ithromycin, and Rocephin, antibiotics will be discontinued. White count of 16.7, hemoglobin hematocrit and platelet count all normal. Sodium 133, potassium 3.6, chlorides 99, CO2 38, BUN 17, creatinine 0.60. Glucose is 126. Magnesium 2.6. Cultures are thus far negative. Chest x-ray shows bilateral diffuse and patchy infiltrates. Progress note dated February 08, 2024. 63-year-old female seen today in room 254. She remains on mechanical ventilator. She is on volume assist-control, rate 30, tidal line 350, FiO2 60%, PEEP of 8. Blood gases show pO2 of 69, pCO2 of 64, pH is 7.39. The patient still has a very large difference between peak airway pressure and plateau pressure. Calculated airways resistance is 16 cmH2O per liter per second. The patient is currently on propofol at 40 mcg/kg/min, saline at 100 cc an hour, and vital high-protein at 40, which is goal. Today we add some Dilaudid. The patient will not have a spontaneous breathing trial today. White count 15.7, hemoglobin 12.2, hematocrit 38.3, platelet count normal. Sodium 139, potassium 4.3, chlorides 103, CO2 38, BUN 20, creatinine 0.51. Magnesium is 2.4. Calcium 8.3. Cultures are currently negative. Chest x-ray shows an endotracheal tube that needs to be placed on a couple centimeters, and a left pleural effusion. Note dated February 09, 2024. 63-year-old female seen again in room 254. She remains on the ventilator. Settings are volume assist-control, rate of 30, tidal volume 350, FiO2 60%, PEEP of 8. Arterial blood gases show pO2 of 70, pCO2 of 64, pH of 7.41. Patient's peak airway pressure is 36 cm of water. The Plateau pressures 20 cm of water. The patient continues on propofol at 50 mcg/kg/min, saline at 20 cc an hour, and vital high-protein at 40, which is goal. The patient will get 1 dose of Lasix, 40 mg IV push. Current labs with a white count 17.5, with normal hemoglobin h ematocrit and platelet count. Sodium 140, potassium 4.4, chlorides 103, CO2 34, BUN 26, creatinine 0.53. Glucose is 148. Patient's chest x-ray reveals bibasilar opacities. 02/10/2024, the patient is being seen for a follow-up. The patient remains intubated on the mechanical ventilator. The patient has been COPD and the patient was treated for pneumonia on outpatient basis and subsequently she was brought into oxygen respiratory failure requiring intubation mechanical ventilation. I reviewed the CAT scan of the chest was done on this patient on 02/05/2024. There is evidence of advanced emphysema. The left hemidiaphragm is quite elevated and there may be a component of left hemidiaphragmatic paralysis. The patient has bullous emphysematous changes in upper lobes bilaterally left m ore than right. There is also a nodular density in the left apex. The patient remains intubated on the mechanical ventilator. This morning, the patient is on propofol running at 50 mcg/kg/min. She remains on assist-control mode with a rate of 30, tidal volume of 350, FiO2 of 60% with a PEEP of 8. The monitoring of blood gases showed a pH of 7.45 with a pCO2 of 60 and pO2 of 50 and based on that the PEEP was brought up to 10. The patient is on normal citrate of 20 cc an hour. The peak airway pressure is around 32. The fluid balance is -2.9 L over the past 24 hours as the patient was given diuretics. The follow-up chest x-ray from this morning shows bilateral infiltrates and small bilateral pleural effusion and bullous emphysematous changes in the lung apices bilaterally. Orogastric and orotracheal tube are all in good location. The white cell count of 13.6 with a hemoglobin 13 and a platelet count of 206. The sodium is at 140, BUN is 33 with a creatinine of 0.5. Serum bicarb is at 37. Blood sugars at 154. The patient is receiving enteral feeding for nutritional support. The patient is on Lovenox 40 mg subcu for DVT prophylaxis. The patient is on a combination of Perforomist and Pulmicort nebulized treatments twice a day, IV Solu-Medrol 60 mg every 6 hours and DuoNeb nebulized treatments [id number]. On 02/11/2024, patient is being seen for a follow-up. The patient remains on Precedex at 0.4 mcg/kg/min.. She is arousable. She was taken off this time. She was placed on assist-control again and this morning she was assist-control of 30, FiO2 of 50% with a PEEP of 8 and a tidal volume of 350. Blood gas showed a pH of 7.44 with pCO2 of 61 and pO2 of 65. Based on this morning's evaluation, I switch this patient to a pressure support mode of mechanical ventilation at rate of 15 with a PEEP of 5 and we are in the process of weaning the patient off the sedation. She is quite comfortable. The peak airway pressure while being on assist-control mode of mechanical ventilation was 25. Bronchospasm wheezing is less compared to yesterday. Chest x-ray shows some left basilar atelectasis/infiltrate. Fluid balance is -580 cc over the past 24 hours. The patient is on vital high-protein at rate of 32 cc an hour. IV fluids are currently at KVO. She remains on DuoNeb of chest. She remains on IV Solu- Medrol. The patient has a white cell count of 14.8 with a hemoglobin of 13.2 and a platelet count of 192. The patient also has a BUN of 35 with a creatinine of 0.5. Sodium levels at 141. On 02/12/2024, the patient is being seen for a follow-up. The patient was extubated on 02/11/2024 and the patient is currently on oxygen at 6 L/min nasal cannula. Awake and alert and communicating. She continues to have a deep congested cough, unable to bring up much of sputum. Repeat chest x-ray was done today and the patient has emphysematous changes with bullous disease involving the lung apices bilaterally and there is also consolidation and small left-sided pleural effusion. The patient remains on bronchodilators with DuoNeb. The patient remains on IV Rocephin. The patient remains on IV Solu-Medrol 60 mg every 6 hours. IV fluids are currently at KVO. Blood pressure remains elevated and the patient was started on a combination of lisinopril/hydrochlorothiazide. No other new complaints otherwise for now. Blood work from today shows a white cell count of 15.9, hemoglobin of 14.7 and a platelet count of 203. Electrolytes are stable. Serum bicarb is at 31, BUN is 32 with a creatinine of 0.49. On 02/13/2024, the patient is being seen for a follow-up. The patient was extubated on 02/11/2024 and the patient remains on 6 L of O2 nasal cannula. She does have some increased edema in all 4 extremities and the patient will be given 2 dose of Lasix 40 mg IV push. The patient is also utilizing BiPAP overnight at a pressure of 15 over 5 cm of water. She does have a congested cough. She will be started on Mucinex. She remains on bronchodilators. She remains on steroids. Her blood pressure is under better control. Awake and alert. There is ongoing generalized weakness. She is afebrile. Hemodynamically stable. Sputum Gram stain and culture of the blood culture were all negative. The white cell count is 18.2 with a hemoglobin 15.6 and a platelet count of 177. BUN 31 with a creatinine of 0.48 and a sodium levels at 139 and a potassium level is at 4.2. Awake and alert and communicating. On 02/14/2024, the patient is doing well. No specific complaints. She reports improvement in her shortness of breath. She is currently on oxygen 4 L/min nasal cannula. Remains on DuoNeb nebulized treatments [id number]. Remains on a performance [facility]. Remains on IV Solu-Medrol. IV fluids are currently at KVO. No signs of any CO2 narcosis. The white cell count of 19 with a hemoglobin of 14.9 and a platelet count of 223. Rest of the electrolytes are stable. BUN 34 with a creatinine of 0.7. Electrolytes are all within normal limits. She is trying to increase level of activity as tolerated. She denies having any new complaints for now. She is using the BiPAP overnight. On 02/15/2024, the patient is doing well. No significant shortness of breath. She is getting getting stronger. She is currently on 5 L of oxygen by nasal cannula with a pulse ox of 93%. She remains on DuoNeb nebulized treatments [id number]. She remains on systemic steroids and the patient was started on prednisone burst taper 40 mg p.o. daily. She is on Lovenox for DVT prophylaxis. She is on Augmentin and she is also on a combination of Perforomist and Pulmicort updrafts twice a day. No other significant events overnight. No signs of any CO2 narcosis. Objective - Vital Signs Vital signs: Vital Signs Temp 97.7 F 02/15/24 07:13 Pulse 88 02/15/24 09:08 Resp 16 02/15/24 07:13 BP 121/80 02/15/24 07:13 Pulse Ox 90 L 02/15/24 07:13 FiO2 40 02/15/24 04:35 Intake & Output 02/14/24 02/15/24 02/15/24 18:59 06:59 18:59 Intake Total 480 Balance 480 Weight 71.5 kg 75 kg Intake: Oral 480 Other: Voiding Method Indwelling Catheter Bedside Commode Bedside Commode # Voids 3 2 1 # Bowel Movements 2 ABP, PAP, CO, CI - Last Documented Arterial Blood Pressure 143/78 - Exam No acute distress, extubated and the patient is currently on 5 L of oxygen nasal cannula Head exam was generally normal. There was no scleral icterus or corneal arcus. Mucous membranes were moist. Neck supple. Full range of motion. No adenopathy thyromegaly or neck vein distention. Cardiovascular examination reveals regular rhythm rate. S1-S2 normal. No S3 or S4. No discernible murmur noted. Heart sounds are distant. Lungs reveal very diminished breath sounds. There is expiratory rhonchi and wheezes. Breath sounds are equal but diminished. No crackles. Abdomen is soft, without bowel sounds. No obvious masses. Extremities are intact. No cyanosis clubbing or edema. Skin is without rash or lesion. Neurologically, the patient is awake and alert and the patient does not have any focal neurological deficit. Cranial nerves are essentially intact. Motor weakness in all 4 extremities, symmetrical weakness. - Labs CBC & Chem 7: 02/14/24 02:54 02/14/24 02:54 Labs: Abnormal Lab Results - Last 24 Hours (Table) 02/14/24 02/14/24 02/14/24 Range/Units 16:38 17:36 21:41 POC Glucose (mg/dL) 137 H 195 H 209 H (70-110) mg/dL 02/14/24 02/15/24 02/15/24 Range/Units 23:59 05:50 11:37 POC Glucose (mg/dL) 185 H 183 H 213 H (70-110) mg/dL Assessment and Plan Plan: Acute hypoxemic respiratory failure requiring intubation and mechanical ventilation, and the patient was intubated on 02/05/2024 and the patient remains on the mechanical ventilator. Review of the CAT scan of the chest shows bullous emphysematous changes with upper lobe predominance, left upper lobe pulmonary opacity/scar and the patient also has an elevated left hemidiaphragm, highly suggestive of left hemidiaphragmatic paralysis contributing to respiratory failure. The patient was extubated on 02/11/2024 and the patient is currently on 5 L of oxygen by nasal cannula. Continues to have some infiltrates in the lung base especially on the left and the patient is currently on IV Rocephin. The patient is still utilizing BiPAP overnight at a pressure of 15 over 5 cm of water. Overall respiratory status is stable. Clinically improving and the patient is getting stronger on daily basis. Shortness of breath secondary to COPD Bullous emphysema with upper lobe predominance Left apical pulmonary nodule/lesion Advanced COPD/tobacco consumer and the patient has chronic hypoxic respiratory failure Bilateral lower lobe pneumonia, suspected the time of admission the patient was treated with a combination of Rocephin and Zithromax. Procalcitonin level is at 0.26. Viral screen negative. Sputum Gram stain and culture has been negative and Legionella urine antigen is also negative. Diabetes mellitus type 2 Hypertension, controlled on a combination of lisinopril hydrochlorothiazide Plan Patient is still on oxygen at 4 to 5 L. Will gradually wean down FiO2 as tolerated. Incentive spirometer Continue bronchodilators, DuoNeb of chest, Perforomist and Pulmicort and the patient is also on IV Rocephin Prednisone burst taper starting with 40 mg p.o. daily Lovenox for DVT prophylaxis Mucinex DM No altered mentation. Weakness is improving and the patient is increasing her level of activity as tolerated Continue working with physical therapy
[2024-02-15 16:40] LABS: Glucose,Whole Blood 190 mg/dL (70-110)
[2024-02-16 00:08] LABS: Glucose,Whole Blood 163 mg/dL (70-110)
[2024-02-16 05:56] LABS: Glucose,Whole Blood 138 mg/dL (70-110)
[2024-02-16 09:00] LABS: HCT 42.5 % (37.2-46.3); HGB 13.8 g/dL (12.0-15.0); MCHC 32.5 g/dL (32.0-37.0); MCV 95.5 FL (80.0-97.0); Mean Platelet Volume 11.3 FL (9.5-12.2); NRBC Per 100 WBC 0 X 10*3/uL (0.00-0.01); Platelet Count 255 X 10*3/uL (140-440); RBC 4.45 X 10*6/uL (4.10-5.20); RDW 13.7 % (11.5-14.5)
[2024-02-16 09:29] LABS: ALT 69 U/L (8-44); AST 14 U/L (13-35); Albumin 3.9 g/dL (3.8-4.9); Albumin/Globulin Ratio 2.05 Ratio (1.60-3.17); Alkaline Phosphatase 58 U/L (41-126); BUN/Creat Ratio 48.67 Ratio (12.00-20.00); Blood Urea Nitrogen 29.2 mg/dL (9.0-27.0); Calcium 9.3 mg/dL (8.7-10.3); Carbon Dioxide 29.4 mmol/L (21.6-31.8); Chloride 97 mmol/L (96-109); Globulin 1.9 g/dL (1.6-3.3); Glucose 148 mg/dL (70-110); Potassium 3.8 mmol/L (3.5-5.5); Sodium 139 mmol/L (135-145); Total Bilirubin 0.5 mg/dL (0.3-1.2); Total Protein 5.8 g/dL (6.2-8.2)
[2024-02-16 11:40] LABS: Glucose,Whole Blood 176 mg/dL (70-110)
--- NOTE | 2024-02-16 14:41 | P.PN ---
Subjective Progress Note Date: 02/16/24 This is a 63-year-old female who was transferred down from [facility]. She apparently was at [place] yesterday, diagnosed as having pneumonia, given Omnicef 300 twice a day, discharged from the emergency department. She apparently came back today, with worsened respiratory distress, and ended up requiring intubation, and mechanical ventilation, and was shipped down to [facility]. I saw her in the emergency department, trauma room 2. She is on the mechanical ventilator. The respiratory therapist switch her from volume assist-control, because of high airway pressures to pressure assist control. Her inspiratory pressure or Pi is 20 cm of water. Her inspiratory time or Ti is 0.7 seconds. The patient is receiving 100% oxygen, with a PEEP of 5, and a rate of 14 breaths/min. She was given Rocephin and vancomycin at the outside hospital. She is currently on propofol at 10 mcg/kg/min, norepinephrine at 0.05 mcg/kg/min. She is not currently receiving any IV fluids. Current labs include a white count 33.3, hemoglobin hematocrit and platelet count all normal. Sodium 127, potassium 4, chlorides 91, CO2 31, glucose 164. Calcium 7.5. N- terminal proBNP 3140. Chest x-ray may show some bibasilar atelectasis or infiltrates. There may be concern for a small left apical pneumothorax. A CT scan was ordered. Progress note dated February 06, 2024. This is a 63-year-old female seen today in room 254. The patient remains on volume assist-control, rate 30, tidal volume 350, FiO2 70%, PEEP of 8. Blood gases show pO2 76, pCO2 65, pH is 7.39. The patient is on saline at 100 cc an hour, norepinephrine at 2 mcg/min, propofol at 35 mcg/kg/min and Nimbex at 1 mcg /kg/min, with [id number] monitoring. The patient has a history of COPD, ongoing tobacco use, lymphoma, and pneumonia. Today, an arterial line will be placed. Will start tube feedings. In addition, the patient will be started on budesonide, and formoterol, usual doses. White count 25.2, hemoglobin 14.5, hematocrit 44.2, platelet count normal. Sodium 131, potassium 4, chloride 93, CO2 35, BUN 13, creatinine 0.52. Troponins were 0.018, and 0.013. Glucose is 177. Chest x-ray shows bibasilar opacities, potentially consistent with pneumonia. Patient continues on Rocephin and azithromycin for possible community-acquired pneumonia. Progress note dated February 07, 2024. 63-year-old female seen in room 254. The patient continues on the mechanical ventilator. She is on volume assist-control, rate 30, tidal line 350, FiO2 60%, PEEP of 8. Blood gases show pO2 of 80, pCO2 of 68, pH is 7.37. The patient still has a high peak airway pressure relative to the plateau pressure, and she still quite bronchospastic. Likely not ready to wean. The patient is on propofol at 40 mcg/kg/min, saline at 100 cc an hour, and vital HP at 40 cc an hour, with a goal of 50. We will attempt a daily interruption of sedation today. The patient's procalcitonin level was 0.26. After 3 days of az ithromycin, and Rocephin, antibiotics will be discontinued. White count of 16.7, hemoglobin hematocrit and platelet count all normal. Sodium 133, potassium 3.6, chlorides 99, CO2 38, BUN 17, creatinine 0.60. Glucose is 126. Magnesium 2.6. Cultures are thus far negative. Chest x-ray shows bilateral diffuse and patchy infiltrates. Progress note dated February 08, 2024. 63-year-old female seen today in room 254. She remains on mechanical ventilator. She is on volume assist-control, rate 30, tidal line 350, FiO2 60%, PEEP of 8. Blood gases show pO2 of 69, pCO2 of 64, pH is 7.39. The patient still has a very large difference between peak airway pressure and plateau pressure. Calculated airways resistance is 16 cmH2O per liter per second. The patient is currently on propofol at 40 mcg/kg/min, saline at 100 cc an hour, and vital high-protein at 40, which is goal. Today we add some Dilaudid. The patient will not have a spontaneous breathing trial today. White count 15.7, hemoglobin 12.2, hematocrit 38.3, platelet count normal. Sodium 139, potassium 4.3, chlorides 103, CO2 38, BUN 20, creatinine 0.51. Magnesium is 2.4. Calcium 8.3. Cultures are currently negative. Chest x-ray shows an endotracheal tube that needs to be placed on a couple centimeters, and a left pleural effusion. Note dated February 09, 2024. 63-year-old female seen again in room 254. She remains on the ventilator. Settings are volume assist-control, rate of 30, tidal volume 350, FiO2 60%, PEEP of 8. Arterial blood gases show pO2 of 70, pCO2 of 64, pH of 7.41. Patient's peak airway pressure is 36 cm of water. The Plateau pressures 20 cm of water. The patient continues on propofol at 50 mcg/kg/min, saline at 20 cc an hour, and vital high-protein at 40, which is goal. The patient will get 1 dose of Lasix, 40 mg IV push. Current labs with a white count 17.5, with normal hemoglobin h ematocrit and platelet count. Sodium 140, potassium 4.4, chlorides 103, CO2 34, BUN 26, creatinine 0.53. Glucose is 148. Patient's chest x-ray reveals bibasilar opacities. 02/10/2024, the patient is being seen for a follow-up. The patient remains intubated on the mechanical ventilator. The patient has been COPD and the patient was treated for pneumonia on outpatient basis and subsequently she was brought into oxygen respiratory failure requiring intubation mechanical ventilation. I reviewed the CAT scan of the chest was done on this patient on 02/05/2024. There is evidence of advanced emphysema. The left hemidiaphragm is quite elevated and there may be a component of left hemidiaphragmatic paralysis. The patient has bullous emphysematous changes in upper lobes bilaterally left m ore than right. There is also a nodular density in the left apex. The patient remains intubated on the mechanical ventilator. This morning, the patient is on propofol running at 50 mcg/kg/min. She remains on assist-control mode with a rate of 30, tidal volume of 350, FiO2 of 60% with a PEEP of 8. The monitoring of blood gases showed a pH of 7.45 with a pCO2 of 60 and pO2 of 50 and based on that the PEEP was brought up to 10. The patient is on normal citrate of 20 cc an hour. The peak airway pressure is around 32. The fluid balance is -2.9 L over the past 24 hours as the patient was given diuretics. The follow-up chest x-ray from this morning shows bilateral infiltrates and small bilateral pleural effusion and bullous emphysematous changes in the lung apices bilaterally. Orogastric and orotracheal tube are all in good location. The white cell count of 13.6 with a hemoglobin 13 and a platelet count of 206. The sodium is at 140, BUN is 33 with a creatinine of 0.5. Serum bicarb is at 37. Blood sugars at 154. The patient is receiving enteral feeding for nutritional support. The patient is on Lovenox 40 mg subcu for DVT prophylaxis. The patient is on a combination of Perforomist and Pulmicort nebulized treatments twice a day, IV Solu-Medrol 60 mg every 6 hours and DuoNeb nebulized treatments [id number]. On 02/11/2024, patient is being seen for a follow-up. The patient remains on Precedex at 0.4 mcg/kg/min.. She is arousable. She was taken off this time. She was placed on assist-control again and this morning she was assist-control of 30, FiO2 of 50% with a PEEP of 8 and a tidal volume of 350. Blood gas showed a pH of 7.44 with pCO2 of 61 and pO2 of 65. Based on this morning's evaluation, I switch this patient to a pressure support mode of mechanical ventilation at rate of 15 with a PEEP of 5 and we are in the process of weaning the patient off the sedation. She is quite comfortable. The peak airway pressure while being on assist-control mode of mechanical ventilation was 25. Bronchospasm wheezing is less compared to yesterday. Chest x-ray shows some left basilar atelectasis/infiltrate. Fluid balance is -580 cc over the past 24 hours. The patient is on vital high-protein at rate of 32 cc an hour. IV fluids are currently at KVO. She remains on DuoNeb of chest. She remains on IV Solu- Medrol. The patient has a white cell count of 14.8 with a hemoglobin of 13.2 and a platelet count of 192. The patient also has a BUN of 35 with a creatinine of 0.5. Sodium levels at 141. On 02/12/2024, the patient is being seen for a follow-up. The patient was extubated on 02/11/2024 and the patient is currently on oxygen at 6 L/min nasal cannula. Awake and alert and communicating. She continues to have a deep congested cough, unable to bring up much of sputum. Repeat chest x-ray was done today and the patient has emphysematous changes with bullous disease involving the lung apices bilaterally and there is also consolidation and small left-sided pleural effusion. The patient remains on bronchodilators with DuoNeb. The patient remains on IV Rocephin. The patient remains on IV Solu-Medrol 60 mg every 6 hours. IV fluids are currently at KVO. Blood pressure remains elevated and the patient was started on a combination of lisinopril/hydrochlorothiazide. No other new complaints otherwise for now. Blood work from today shows a white cell count of 15.9, hemoglobin of 14.7 and a platelet count of 203. Electrolytes are stable. Serum bicarb is at 31, BUN is 32 with a creatinine of 0.49. On 02/13/2024, the patient is being seen for a follow-up. The patient was extubated on 02/11/2024 and the patient remains on 6 L of O2 nasal cannula. She does have some increased edema in all 4 extremities and the patient will be given 2 dose of Lasix 40 mg IV push. The patient is also utilizing BiPAP overnight at a pressure of 15 over 5 cm of water. She does have a congested cough. She will be started on Mucinex. She remains on bronchodilators. She remains on steroids. Her blood pressure is under better control. Awake and alert. There is ongoing generalized weakness. She is afebrile. Hemodynamically stable. Sputum Gram stain and culture of the blood culture were all negative. The white cell count is 18.2 with a hemoglobin 15.6 and a platelet count of 177. BUN 31 with a creatinine of 0.48 and a sodium levels at 139 and a potassium level is at 4.2. Awake and alert and communicating. On 02/14/2024, the patient is doing well. No specific complaints. She reports improvement in her shortness of breath. She is currently on oxygen 4 L/min nasal cannula. Remains on DuoNeb nebulized treatments [id number]. Rem[facility] on a [facility] Remains on IV Solu-Medrol. IV fluids are currently at KVO. No signs of any CO2 narcosis. The white cell count of 19 with a hemoglobin of 14.9 and a platelet count of 223. Rest of the electrolytes are stable. BUN 34 with a creatinine of 0.7. Electrolytes are all within normal limits. She is trying to increase level of activity as tolerated. She denies having any new complaints for now. She is using the BiPAP overnight. On 02/15/2024, the patient is doing well. No significant shortness of breath. She is getting getting stronger. She is currently on 5 L of oxygen by nasal cannula with a pulse ox of 93%. She remains on DuoNeb nebulized treatments [id number]. She remains on systemic steroids and the patient was started on prednisone burst taper 40 mg p.o. daily. She is on Lovenox for DVT prophylaxis. She is on Augmentin and she is also on a combination of Perforomist and Pulmicort updrafts twice a day. No other significant events overnight. No signs of any CO2 narcosis. On 02/16/2024, patient is feeling well, less short of breath, no new complaints, she is going to be discharged to [facility]. The white cell count is 28 with a hemoglobin of 13.8 and a platelet count of 255. Bicarb is 29, sodium is at 139, BUN is 29 with a creatinine of 0.6. She is on a prednisone burst taper. She is on Augmentin. He is on Perforomist and Pulmicort nebulized treatments [id number] and DuoNeb Treatments 4 times a day. Oxygenation is stable and the patient remains on oxygen at 5 L with a pulse ox of 95%. Objective - Vital Signs Vital signs: Vital Signs Temp 97.4 F L 02/16/24 07:47 Pulse 92 02/16/24 10:03 Resp 17 02/16/24 07:47 BP 126/76 02/16/24 07:47 Pulse Ox 95 02/16/24 09:47 FiO2 40 02/16/24 09:47 Intake & Output 02/15/24 02/16/24 02/16/24 18:59 06:59 18:59 Intake Total 720 Balance 720 Weight 77.2 kg Intake: Oral 720 Other: Voiding Method Bedside Commode Toilet # Voids 3 2 ABP, PAP, CO, CI - Last Documented Arterial Blood Pressure 143/78 - Exam No acute distress, extubated and the patient is currently on 5 L of oxygen nasal cannula Head exam was generally normal. There was no scleral icterus or corneal arcus. Mucous membranes were moist. Neck supple. Full range of motion. No adenopathy thyromegaly or neck vein distention. Cardiovascular examination reveals regular rhythm rate. S1-S2 normal. No S3 or S4. No discernible murmur noted. Heart sounds are distant. Lungs reveal very diminished breath sounds. There is expiratory rhonchi and wheezes. Breath sounds are equal but diminished. No crackles. Abdomen is soft, without bowel sounds. No obvious masses. Extremities are intact. No cyanosis clubbing or edema. Skin is without rash or lesion. Neurologically, the patient is awake and alert and the patient does not have any focal neurological deficit. Cranial nerves are essentially intact. Motor weakness in all 4 extremities, symmetrical weakness. - Labs CBC & Chem 7: 02/16/24 03:00 02/16/24 03:00 Labs: Abnormal Lab Results - Last 24 Hours (Table) 02/15/24 02/15/24 02/16/24 Range/Units 11:37 16:38 00:06 WBC (4.50-10.00) X 10*3/uL Anion Gap (4.00-12.00) mmol/L BUN (9.0-27.0) mg/dL BUN/Creatinine Ratio (12.00-20.00) Ratio Glucose (70-110) mg/dL POC Glucose (mg/dL) 213 H 190 H 163 H (70-110) mg/dL ALT (8-44) U/L Total Protein (6.2-8.2) g/dL 02/16/24 02/16/24 02/16/24 Range/Units 03:00 03:00 05:55 WBC 28.00 H (4.50-10.00) X 10*3/uL Anion Gap 12.60 H (4.00-12.00) mmol/L BUN 29.2 H (9.0-27.0) mg/dL BUN/Creatinine Ratio 48.67 H (12.00-20.00) Ratio Glucose 148 H (70-110) mg/dL POC Glucose (mg/dL) 138 H (70-110) mg/dL ALT 69 H (8-44) U/L Total Protein 5.8 L (6.2-8.2) g/dL Assessment and Plan Plan: Acute hypoxemic respiratory failure requiring intubation and mechanical ventilation, and the patient was intubated on 02/05/2024 and the patient remains on the mechanical ventilator. Review of the CAT scan of the chest shows bullous emphysematous changes with upper lobe predominance, left upper lobe pulmonary opacity/scar and the patient also has an elevated left hemidiaphragm, highly suggestive of left hemidiaphragmatic paralysis contributing to respiratory failure. The patient was extubated on 02/11/2024 and the patient is currently on 5 L of oxygen by nasal cannula. Continues to have some infiltrates in the lung base especially on the left and the patient is currently on IV Rocephin. The patient is still utilizing BiPAP overnight at a pressure of 15 over 5 cm of water. Overall respiratory status is stable. Clinically improving and the cheryl ent is getting stronger on daily basis. The patient is currently on 5 L of oxygen nasal cannula. Shortness of breath secondary to COPD Bullous emphysema with upper lobe predominance Left apical pulmonary nodule/lesion Advanced COPD/tobacco consumer and the patient has chronic hypoxic respiratory failure Bilateral lower lobe pneumonia, suspected the time of admission the patient was treated with a combination of Rocephin and Zithromax. Procalcitonin level is at 0.26. Viral screen negative. Sputum Gram stain and culture has been negative and Legionella urine antigen is also negative. Diabetes mellitus type 2 Hypertension, controlled on a combination of lisinopril hydrochlorothiazide Plan Monitor the white cell count, this could be reactive Patient is still on oxygen at 4 to 5 L. Will gradually wean down FiO2 as tolerated. Incentive spirometer Continue bronchodilators, DuoNeb of chest, Perforomist and Pulmicort and the patient is also on IV Rocephin Prednisone burst taper starting with 40 mg p.o. daily Lovenox for DVT prophylaxis Mucinex DM No altered mentation. Weakness is improving and the patient is increasing her level of activity as tolerated Continue working with physical therapy The patient is being considered to be discharged to [facility].
--- NOTE | 2024-02-16 15:58 | P.PN ---
Subjective Progress Note Date: 02/16/24 (delayed charting) Patient is a 63-year-old female with COPD, tobacco use, and prior pneumonia is admitted on 02/04 with acute exacerbation of COPD, pneumonia, septic shock, acute metabolic encephalopathy, acute hypoxic respiratory failure, and hyponatremia. Patient seen and examined at bedside. Seen and examined at bedside. Doing well. Breathing at baseline. Eating and drinking well. Left upper extremity swelling much improved. Vital signs reviewed General: Nontoxic, no distress, appears at stated age Cardiovascular: S1S2 reg, no murmur Lungs: Coarse breath sounds bilaterally, no rhonchi, no rales, no accessory muscle use Abdominal: Soft, nontender to palpation, no guarding Ext: No gross muscle atrophy, no edema b/l lower extremities, left upper extremity edema, no contractures Neuro: CN II-XI grossly intact, no focal neuro deficits Psych: Alert, oriented, appropriate affect Assessment/Plan: Pneumonia with septic shock-last dose of antibiotics 02/14 Acute metabolic encephalopathy, resolved Acute exacerbation of COPD, improving Acute hypoxic respiratory failure -Continue to wean O2 as able currently on 5 L nasal cannula -Plan is for discharge with CPAP per patient -Pulmonary recommendations -DuoNeb 4 times daily and as needed -Pulmicort via neb twice daily, perforomist via neb twice daily -prednisone 40 mg daily -completed abx 02/14 -Pulmonary note reviewed Prediabetes with hyperglycemia likely secondary to steroids -Continue sliding scale insulin -Follow blood sugars -A1c 6.3. Likely would benefit from oral medication on discharge pending how blood sugars run off of IV steroids Leukocytosis -Has increased significant wheeze since 02/10/2024 with max today at 28 however clinically patient is feeling improved and suspect related to IV steroids which were discontinued on 02/14. No fevers. Repeat CBC in AM. Tobacco use -Cessation Hypertension, improved -Lisinopril 20 mg and hydrochlorothiazide 12.5 mg daily -Follow-up blood pressures Left arm swelling, resolved Imaging: None new Data Review: Labs reviewed from today included CBC and CMP which are remarkable for white blood cell count of 28 and BUN of 29.2. DVT prophylaxis: Lovenox Anticipated discharge date: Home with home care on 02/16 This dictation was prepared using [employer] voice recognition software. Though every attempt is made to correct errors during dictation some may still exist. Objective - Vital Signs Vital signs: Vital Signs Temp 97.6 F 02/16/24 13:32 Pulse 91 02/16/24 13:32 Resp 17 02/16/24 13:32 BP 100/68 02/16/24 13:32 Pulse Ox 91 L 02/16/24 13:32 FiO2 40 02/16/24 09:47 Intake & Output 02/15/24 02/16/24 02/16/24 18:59 06:59 18:59 Intake Total 720 Balance 720 Weight 77.2 kg Intake: Oral 720 Other: Voiding Method Bedside Commode Toilet # Voids 3 2 ABP, PAP, CO, CI - Last Documented Arterial Blood Pressure 143/78 - Labs CBC & Chem 7: 02/16/24 03:00 02/16/24 03:00 Labs: Abnormal Lab Results - Last 24 Hours (Table) 02/15/24 02/16/24 02/16/24 Range/Units 16:38 00:06 03:00 WBC 28.00 H (4.50-10.00) X 10*3/uL Anion Gap (4.00-12.00) mmol/L BUN (9.0-27.0) mg/dL BUN/Creatinine Ratio (12.00-20.00) Ratio Glucose (70-110) mg/dL POC Glucose (mg/dL) 190 H 163 H (70-110) mg/dL ALT (8-44) U/L Total Protein (6.2-8.2) g/dL 02/16/24 02/16/24 02/16/24 Range/Units 03:00 05:55 11:39 WBC (4.50-10.00) X 10*3/uL Anion Gap 12.60 H (4.00-12.00) mmol/L BUN 29.2 H (9.0-27.0) mg/dL BUN/Creatinine Ratio 48.67 H (12.00-20.00) Ratio Glucose 148 H (70-110) mg/dL POC Glucose (mg/dL) 138 H 176 H (70-110) mg/dL ALT 69 H (8-44) U/L Total Protein 5.8 L (6.2-8.2) g/dL
[2024-02-16 16:42] LABS: Glucose,Whole Blood 177 mg/dL (70-110)
[2024-02-16] MEDS: guaiFENesin 600 MG TABLET.ER PO PRN (20:39)
[2024-02-16 20:45] LABS: Glucose,Whole Blood 161 mg/dL (70-110)
[2024-02-17 00:08] LABS: Glucose,Whole Blood 97 mg/dL (70-110)
[2024-02-17 03:23] LABS: HCT 40.4 % (34.0-46.0); HGB 13.1 gm/dL (11.4-16.0); MCH 30.1 pg (25.0-35.0); MCHC 32.3 g/dL (31.0-37.0); MCV 93.1 fL (80.0-100.0); Mean Platelet Volume 8.6; Platelet Count 222 k/uL (150-450); RBC 4.34 m/uL (3.80-5.40); RDW 13.5 % (11.5-15.5); WBC 16.4 k/uL (3.8-10.6)
[2024-02-17 03:35] LABS: African American GFR (CKD) >90 (>60 ml/min/1.73 sqM); Anion Gap 1 mmol/L; Blood Urea Nitrogen 19 mg/dL (7-17); Calcium 8.6 mg/dL (8.4-10.2); Carbon Dioxide 34 mmol/L (22-30); Chloride 97 mmol/L (98-107); Glucose 99 mg/dL (74-99); Non-African American GFR(CKD) >90 (>60 ml/min/1.73 sqM); Potassium 3.7 mmol/L (3.5-5.1); Sodium 132 mmol/L (137-145)
[2024-02-17 05:58] LABS: Glucose,Whole Blood 91 mg/dL (70-110)
[2024-02-17 07:39] VITALS: BP 102/71; RESP 18; TEMP 97.5
--- NOTE | 2024-02-17 08:28 | XR ---
EXAMINATION TYPE: XR chest 2V DATE OF EXAM: 02/17/2024 6:37 AM COMPARISON: Chest radiographs from 02/17/2024 CLINICAL INDICATION: Female, 63 years old with history of pneumonia; TECHNIQUE: XR chest 2V Frontal and lateral views of the chest. FINDINGS: Lungs/Pleura: Improved aeration of lungs on today's exam with persistent airspace opacities scattered throughout the lungs. No evidence of pneumothorax or large pleural effusion. Pulmonary vascularity: Unremarkable. Heart/mediastinum: Cardiomediastinal silhouette is unremarkable. Musculoskeletal: No acute osseous pathology. IMPRESSION: Improved aeration of the lung bases [facility], , 02/17/2024 8:26 AM
[2024-02-17 09:01] VITALS: PULSE 88
[2024-02-17 11:33] LABS: Glucose,Whole Blood 128 mg/dL (70-110)
[2024-02-17] MEDS ORDERED: ACETAMINOPHEN TAB 325 MG TAB PO PRN (12:23)
--- NOTE | 2024-02-17 13:31 | P.DS ---
Providers Date of admission: 02/05/24 15:54 Expected date of discharge: 02/17/24 Attending physician: MD Leena Shipley Consults: 02/05/24 15:53 Consult Physician Urgent Consulting Provider: Ji Hancock Consult Reason/Comments: Vent dependent respiratory failure Do you want consulting provider notified?: Already Contacted Primary care physician: Stated None Hospital Course: Discharge Diagnosis: Acute on chronic hypoxic respiratory failure requiring intubation with mechanical ventilation s/p extubation 02/11/2024 secondary to bilateral community-acquired bacterial lower lobe pneumonia Advanced COPD Tobacco use disorder Bullous emphysema with upper lobe predominance Prediabetes Hospital Course: 63-year-old female with past medical history of tobacco dependence 2 PPD, COPD, hypertension who was transferred from [facility] where she was diagnosed with pneumonia and acute hypoxic respiratory failure requiring intubation, septic shock requiring pressors. CT chest showed no PTX, severe emphysema, bibasilar atelectasis, right adrenal nodule, elevated left hemidiaphragm, mild pectus excavatum. Patient was started on Rocephin, azithromycin, Solu-Medrol, Levophed and admitted to ICU for further workup and management. Patient was extubated on 02/11/2024, patient continued to be improving, transferred to regular medical floor. She finished her antibiotics on 02/15/2024, continued to require supplemental oxygen with nasal cannula 4 to 5 L, patient will be discharged on oxygen, she has all supplies at home. She will follow-up with her primary hr shared services consultant, she will need sleep study in order to qualify for CPAP, patient was educated on it. She will continue her prednisone 20 twice daily. Patient will need to follow-up with her primary care physician regarding her blood glucose levels and diagnosis of prediabetes likely due to steroid use. She will continue her home inhalers. Patient seen and examined at bedside. Vital signs reviewed and stable. General: [nontoxic], [no distress], [appears at stated age] Derm: [warm], [dry] Head: [atraumatic], [normocephalic], [symmetric] Eyes: [EOMI], [no lid lag], [anicteric sclera] Mouth: [no lip lesion], [mucus membranes moist] Cardiovascular: [S1S2 reg], [no murmur] Lungs diminished breath sounds, no wheezes, crackles, Rales Abdominal: [soft], [ nontender to palpation], [no guarding], [no appreciable organomegaly] Ext: [no gross muscle atrophy], [no edema], [no contractures] Neuro: [ CN II-XI grossly intact], [no focal neuro deficits] Psych: [Alert], [oriented], [appropriate affect] A total of 35 minutes of time were spent preparing this complex discharge summary. Patient was discharged on 02/17/2024 Patient Condition at Discharge: Stable Plan - Discharge Summary New Discharge Prescriptions: New guaiFENesin [Mucinex] 600 mg PO Q12HR PRN #14 tab PRN Reason: Cough Lisinopril-Hctz 20-12.5 mg [Zestoretic 20-12.5] 1 each PO DAILY #90 tab Continue Fluticasone/Umeclidin/Vilanter [Trelegy Ellipta 200-62.5-25] 1 puff INHALATION RT-DAILY Azithromycin [Zithromax] 500 mg PO DAILY predniSONE [Deltasone] 20 mg PO BID Fluticasone Nasal [place] [Flonase Nasal [place]] 2 spray EA NOSTRIL DAILY Famotidine [Pepcid] 20 mg PO BID Albuterol Inhaler [Ventolin Hfa Inhaler] 2 puff INHALATION RT-Q4H PRN PRN Reason: Shortness Of Breath Discontinued Doxycycline Monohydrate 100 mg PO DIRECTED Cefdinir 300 mg PO BID Discharge Medication List Albuterol Inhaler [Ventolin Hfa Inhaler] 2 puff INHALATION RT-Q4H PRN 02/05/24 [History] Azithromycin [Zithromax] 500 mg PO DAILY 02/05/24 [History] Famotidine [Pepcid] 20 mg PO BID 02/05/24 [History] Fluticasone Nasal [place] [Flonase Nasal [place]] 2 spray EA NOSTRIL DAILY 02/05/24 [History] Fluticasone/Umeclidin/Vilanter [Trelegy Ellipta 200-62.5-25] 1 puff INHALATION RT-DAILY 02/05/24 [History] predniSONE [Deltasone] 20 mg PO BID 02/05/24 [History] Lisinopril-Hctz 20-12.5 mg [Zestoretic 20-12.5] 1 each PO DAILY #90 tab 02/17/24 [Rx] guaiFENesin [Mucinex] 600 mg PO Q12HR PRN #14 tab 02/17/24 [Rx] Follow up Appointment(s)/Referral(s): [facility] [NON-STAFF] - As Needed (wheelchair) [facility] [NON-STAFF] - 1 Week [facility] [NON-STAFF] - 1 Week None,Stated [Primary Care Provider] - 1-2 days Residential Home,Health [NON-STAFF] - As Needed James White MD [REFERRING] - 1 Week Patient Instructions/Handouts: COPD (Chronic Obstructive Pulmonary Disease) (IP) Activity/Diet/Wound Care/Special Instructions: Please, see your lung doctor as discussed Discharge/Stand Alone Forms: PH Area PCPs Discharge Disposition: HOME WITH HOME HEALTH SERVICES
--- NOTE | 2024-02-17 13:45 | P.PN ---
Subjective Progress Note Date: 02/17/24 The patient is seen today February 17, 2024 in follow-up on the regular medical floor. She is currently sitting up in a chair at the bedside. Awake and alert in no acute distress. Maintaining O2 saturations in the 90s on 5 L/min per nasal cannula. She does utilize BiPAP 15/5 and 40% FiO2 during the evening. X- ray shows improved aeration of the lungs with persistent airspace opacities scattered throughout. No pneumothorax. No significant pleural effusion. Blood cultures revealed no growth. Sputum culture revealed no growth. White count 16.4. Hemoglobin 13.1. Platelets 222. Sodium 132. Potassium 3.7. Bicarb 34. BUN 19. Creatinine 0.65. Glucose 99. She is continued on DuoNeb inhalations, Pulmicort and Perforomist inhalations, prednisone taper. Antibiotics in the form of Augmentin. Lovenox for DVT prophylaxis. Objective - Vital Signs Vital signs: Vital Signs Temp 97.5 F L 02/17/24 06:55 Pulse 88 02/17/24 09:24 Resp 18 02/17/24 08:50 BP 102/71 02/17/24 06:55 Pulse Ox 97 02/17/24 06:55 FiO2 40 02/16/24 23:42 Intake & Output 02/16/24 02/17/24 02/17/24 18:59 06:59 18:59 Other: Voiding Method Toilet # Voids 4 1 ABP, PAP, CO, CI - Last Documented Arterial Blood Pressure 143/78 - Exam GENERAL EXAM: Alert, 63-year-old female, up in a chair, on 5 L nasal cannula, fairly comfortable in no apparent distress. HEAD: Normocephalic. EYES: Normal reaction of pupils, equal size. NOSE: Clear with pink turbinates. THROAT: No erythema or exudates. NECK: No masses, no JVD. CHEST: No chest wall deformity. LUNGS: Equal air entry with bilateral scattered rhonchi. CVS: S1 and S2 normal with no audible murmur, regular rhythm. ABDOMEN: No hepatosplenomegaly, normal bowel sounds, no guarding or rigidity. SPINE: No scoliosis or deformity SKIN: No rashes CENTRAL NERVOUS SYSTEM: No focal deficits, tone is normal in all 4 extremities. EXTREMITIES: There is no peripheral edema. No clubbing, no cyanosis. Peripheral pulses are intact. - Labs CBC & Chem 7: 02/17/24 02:27 02/17/24 02:27 Labs: Abnormal Lab Results - Last 24 Hours (Table) 02/16/24 02/16/24 02/17/24 Range/Units 16:41 20:44 02:27 WBC 16.4 H (3.8-10.6) k/uL Sodium (137-145) mmol/L Chloride (98-107) mmol/L Carbon Dioxide (22-30) mmol/L BUN (7-17) mg/dL POC Glucose (mg/dL) 177 H 161 H (70-110) mg/dL 02/17/24 02/17/24 Range/Units 02:27 11:31 WBC (3.8-10.6) k/uL Sodium 132 L (137-145) mmol/L Chloride 97 L (98-107) mmol/L Carbon Dioxide 34 H (22-30) mmol/L BUN 19 H (7-17) mg/dL POC Glucose (mg/dL) 128 H (70-110) mg/dL Assessment and Plan Assessment: Acute hypoxemic respiratory failure requiring intubation and mechanical ventilation, and the patient was intubated on 02/05/2024. Review of the CAT scan of the chest shows bullous emphysematous changes with upper lobe predo minance, left upper lobe pulmonary opacity/scar and the patient also has an elevated left hemidiaphragm, highly suggestive of left hemidiaphragmatic paralysis contributing to respiratory failure. The patient was extubated on 02/11/2024. Today's chest x-ray shows improvement in the infiltrates in the lung base especially on the left and the patient is currently on Augmentin. Overall respiratory status is stable. Clinically improving and the patient is getting stronger on daily basis. The patient is currently on 5 L of oxygen nasal cannula. Shortness of breath secondary to COPD Bullous emphysema with upper lobe predominance Left apical pulmonary nodule/lesion Advanced COPD/tobacco consumer and the patient has chronic hypoxic respiratory failure Bilateral lower lobe pneumonia, treated with a combination of Rocephin and Zithromax. Procalcitonin level is at 0.26. Viral screen negative. Sputum Gram stain and culture has been negative and Legionella urine antigen is also negative Diabetes mellitus type 2 Hypertension, controlled on a combination of lisinopril hydrochlorothiazide Plan: The patient was seen and evaluated Labs and medications reviewed Working with the incentive spirometer Complete a prednisone taper Continue her home Trelegy and albuterol HFA Continue her home oxygen Plan is for home with home care versus subacute rehabilitation per patient request To follow-up with her back padder out of [place] in 1 week This patient was seen independently by the pulmonary nurse practitioner addressing pulmonary issues I have personally seen and examined the patient, performed the documentation and the assessment and plan as written. Number of minutes spent on the visit: 25 Dictation was produced using [employer] dictation software. Please excuse any grammatical, word or spelling errors.
== END 2024-02-17 16:28 | disposition home health service (06) | DRG 870 ==
LOC: EC 14:33 → 2SICU 15:54 → 4SSUR 02-13 13:39
PROVIDERS: ADMIT Family Medicine; ATTEND Family Medicine
PROC: 5A1955Z Respiratory Ventilation, Greater than 96 Consecutive Hours (ICD-10-PCS; principal; 2024-02-05)
PROC: 0BH17EZ Insertion of Endotracheal Airway into Trachea, Via Natural or Artificial Opening (ICD-10-PCS; principal; 2024-02-05)
PROC: 5A09557 Assistance with Respiratory Ventilation, Greater than 96 Consecutive Hours, Continuous Positive Airway Pressure (ICD-10-PCS; 2024-02-05)
PROC: 03HY32Z Insertion of Monitoring Device into Upper Artery, Percutaneous Approach (ICD-10-PCS; 2024-02-06)
PROC: 4A133B1 Monitoring of Arterial Pressure, Peripheral, Percutaneous Approach (ICD-10-PCS; 2024-02-06)
PROC: 4A133J1 Monitoring of Arterial Pulse, Peripheral, Percutaneous Approach (ICD-10-PCS; 2024-02-06)
DX: A41.9 Sepsis, unspecified organism (principal); G93.41 Metabolic encephalopathy; J18.9 Pneumonia, unspecified organism; J96.01 Acute respiratory failure with hypoxia; R65.21 Severe sepsis with septic shock; J96.21 Acute and chronic respiratory failure with hypoxia; E87.4 Mixed disorder of acid-base balance; I10 Essential (primary) hypertension; E87.1 Hypo-osmolality and hyponatremia; Z99.11 Dependence on respirator [ventilator] status; J98.11 Atelectasis; T38.0X5A Adverse effect of glucocorticoids and synthetic analogues, initial encounter; Z99.81 Dependence on supplemental oxygen; J43.9 Emphysema, unspecified; Z85.72 Personal history of non-Hodgkin lymphomas; E11.65 Type 2 diabetes mellitus with hyperglycemia; I08.1 Rheumatic disorders of both mitral and tricuspid valves; Z79.4 Long term (current) use of insulin; Z79.899 Other long term (current) drug therapy; Z87.01 Personal history of pneumonia (recurrent); Z79.51 Long term (current) use of inhaled steroids; X58.XXXA Exposure to other specified factors, initial encounter; Z88.2 Allergy status to sulfonamides
CPT/HCPCS: 36415; 36600; 71045; 71046; 71250; 80048; 80053; 82805; 83036; 83605; 83735; 83880; 84132; 84145; 84484; 85025; 85027; 85610; 85730; 87040; 87070; 87205; 87449; 87636; 93005; 93306; 94002; 94003; 94640; 94644; 94660; 94760; 99291